=== PATIENT | male | born 1960 | race Caucasian/White ===

== ENCOUNTER 2018-01-31 15:13 | Emergency (ER) | payer BC ==
[2018-01-31] MEDS ORDERED: KETOROLAC 30 MG/ML 1 ML VIAL IVP STA (15:50)
[2018-01-31] MEDS ORDERED: MORPHINE SULFATE 4 MG/ML SYRINGE IVP ONE ×2 (15:50→18:44)
[2018-01-31] MEDS ORDERED: ONDANSETRON 4 MG/2 ML VIAL IVP STA ×2 (15:50→20:18)
[2018-01-31] MEDS ORDERED: DICYCLOMINE 10 MG/ML 2 ML AMP IM STA (15:53)
--- NOTE | 2018-01-31 15:59 | ED ---
Abdominal Pain HPI - General Chief Complaint: Abdominal Pain Stated Complaint: abdominal pain Time Seen by Provider: 01/31/18 15:31 Source: patient, family () Mode of arrival: ambulatory Limitations: no limitations - History of Present Illness Initial Comments: Patient presents with suprapubic abdominal pain for the past 4 hours. Patient states it feels like gas pains. States pain is intermittent. States pain radiates down his penis and to region between scrotum and rectum. Pain worse when laying flat when he "stretches out the area". Pain started after he went to the bathroom where he had a bowel movement and urinated. Patient states urination has been normal, denies blood or frequency. Patient denies penile discharge or testicular swelling or pain. States he had 2 bowel movements today , the first one was normal, second one was small amount of diarrhea. She denies blood in urine or stools. Patient denies history of abdominal surgeries or abdominal disease. Patient denies history of kidney stones, flank pain, rectal pain. Patient denies fevers, chills, nausea, vomiting. Patient states he had a similar episode of pain 3 weeks ago was less severe and resolved on its own. - Related Data Home Medications Medication Instructions Recorded Confirmed Benazepril/Hydrochlorothiazide 1 tab PO DAILY 03/16/15 01/31/18 [Lotensin Hct 20-12.5 mg Tablet] Fluticasone Nasal [place] [Flonase 1 spray EA NOSTRIL BID 01/31/18 01/31/18 Nasal [place]] Previous Rx's Medication Instructions Recorded Acetaminophen-Codeine 300-30mg 1 tab PO Q4H PRN 2 Days #12 tablet 01/31/18 [Tylenol #3] Amoxic-Pot Clav 875-125Mg 1 tab PO Q8HR 10 Days #30 tablet 01/31/18 [Augmentin 875-125] Ibuprofen [Motrin] 600 mg PO Q6HR PRN #20 tab 01/31/18 Allergies Allergy/AdvReac Type Severity Reaction Status Date / Time No Known Allergies Allergy Verified 01/31/18 16:02 Review of Systems ROS Statement: Those systems with pertinent positive or pertinent negative responses have been documented in the HPI. ROS Other: All systems not noted in ROS Statement are negative. Constitutional: Denies: fever, chills, weakness ENT: Denies: congestion Respiratory: Denies: dyspnea Cardiovascular: Denies: chest pain Endocrine: Denies: fatigue Gastrointestinal: Reports: abdominal pain, diarrhea. Denies: nausea, vomiting, constipation, hematemesis, melena, hematochezia Genitourinary: Reports: other (suprapubic pain radiating down penis). Denies: urgency, dysuria, frequency, hematuria, discharge, testicular pain, testicular mass Musculoskeletal: Denies: back pain Skin: Denies: rash, change in color Neurological: Denies: headache Past Medical History Past Medical History: Hypertension History of Any Multi-Drug Resistant Organisms: None Reported Past Surgical History: No Surgical Hx Reported Additional Past Surgical History / Comment(s): SINUS SURG Past Anesthesia/Blood Transfusion Reactions: Motion Sickness, Postoperative Nausea & Vomiting (PONV) Past Psychological History: No Psychological Hx Reported Smoking Status: Former smoker Past Alcohol Use History: Occasional Past Drug Use History: None Reported - Past Family History Mother Family Medical History: No Reported History General Exam - General Exam Comments Initial Comments: Sitting up in bed. No acute distress. Conversing normally. Calm, pleasant. Well appearing. Limitations: no limitations Head exam: Present: atraumatic, normocephalic Eye exam: Present: normal appearance, PERRL, EOMI ENT exam: Present: mucous membranes moist Neck exam: Present: normal inspection Respiratory exam: Present: normal lung sounds bilaterally. Absent: respiratory distress, wheezes, rales, rhonchi, stridor Cardiovascular Exam: Present: regular rate, normal rhythm GI/Abdominal exam: Present: soft, tenderness (mild suprapubic TTP). Absent: distended, guarding, hernia (No hernias appreciated) exam: Present: normal inspection, circumcision, other (Current testicular swelling or masses appreciated. Normal testicular lie. No hernias appreciated. Penis and scrotum appear normal. No rashes or lesions noted. No abnormalities of the perineum appreciated on visual inspection.). Absent: testicular tenderness, urethral discharge, scrotal swelling Extremities exam: Present: other (No gross deformities) Back exam: Present: normal inspection Neurological exam: Present: alert, oriented X3 Psychiatric exam: Present: normal affect, normal mood Skin exam: Present: warm, dry, intact, normal color. Absent: rash, cyanosis, diaphoretic, erythema Course Vital Signs 01/31/18 01/31/18 15:25 20:20 Temperature 97.0 F L 97.9 F Pulse Rate 73 63 Respiratory 20 17 Rate Blood Pressure 144/97 110/56 O2 Sat by Pulse 99 100 Oximetry Medical Decision Making - Medical Decision Making Toradol, morphine, Bentyl ordered. US scrotum: Ultrasound shows increased vascular flow to right testicle and epididymis suggestive mild right epididymoorchitis. Small hydroceles are also incidentally noted, right greater than left Mild elevation of WBC, UA negative, will get CT for possible intraabd infection. Pt with continued pain, 2nd dose morphine given. US abd: CT shows acute uncomplicated sigmoid diverticulitis, mild. Also shows suspicious solid right inferior pole renal mass Pt and family updated with all results. Symptoms likely secondary to diverticulitis. At this time UA negative, do not feel patient has orchitis. Normal genital physical exam. Diverticulitis. Mild unconjugated, patient agrees with child outpatient treatment with antibiotics and Tylenol 3. Patient also to take Motrin as needed. Discussed return to ED if new or worsening symptoms including increased pain, fevers, at which time patient would need admitted for IV treatment. Patient's family informed of right renal mass and need for follow with primary care physician for further management. All questions answered. Patient discharged home. Patient feeling nauseated prior to discharge, request dose of antiemetics, Zofran given. Nausea likely secondary to morphine. - Lab Data Result diagrams: 01/31/18 16:02 01/31/18 16:02 Lab Results 01/31/18 01/31/18 01/31/18 Range/Units 16:02 16:02 16:02 WBC 11.4 H (3.8-10.6) k/uL RBC 5.23 (4.30-5.90) m/uL Hgb 15.8 (13.0-17.5) gm/dL Hct 46.0 (39.0-53.0) % MCV 87.8 (80.0-100.0) fL MCH 30.2 (25.0-35.0) pg MCHC 34.4 (31.0-37.0) g/dL RDW 12.5 (11.5-15.5) % Plt Count 310 (150-450) k/uL Neutrophils % 69 % Lymphocytes % 21 % Monocytes % 6 % Eosinophils % 2 % Basophils % 1 % Neutrophils # 7.9 H (1.3-7.7) k/uL Lymphocytes # 2.4 (1.0-4.8) k/uL Monocytes # 0.7 (0-1.0) k/uL Eosinophils # 0.2 (0-0.7) k/uL Basophils # 0.1 (0-0.2) k/uL Sodium 138 (137-145) mmol/L Potassium 3.9 (3.5-5.1) mmol/L Chloride 104 (98-107) mmol/L Carbon Dioxide 19 L (22-30) mmol/L Anion Gap 15 mmol/L BUN 23 H (9-20) mg/dL Creatinine 0.85 (0.66-1.25) mg/dL Est GFR (CKD-EPI)AfAm >90 (>60 ml/min/1.73 sqM) Est GFR (CKD-EPI)NonAf >90 (>60 ml/min/1.73 sqM) Glucose 147 H (74-99) mg/dL Calcium 9.8 (8.4-10.2) mg/dL Urine Color Yellow Urine Appearance Clear (Clear) Urine pH 5.0 (5.0-8.0) Ur Specific [place] 1.017 (1.001-1.035) Urine Protein Negative (Negative) Urine Glucose (UA) Negative (Negative) Urine Ketones Negative (Negative) Urine Blood Trace H (Negative) Urine Nitrite Negative (Negative) Urine Bilirubin Negative (Negative) Urine Urobilinogen <2.0 (<2.0) mg/dL Ur Leukocyte Esterase Small H (Negative) Urine RBC 1 (0-5) /hpf Urine WBC 4 (0-5) /hpf Urine Mucus Rare H (None) /hpf Disposition Clinical Impression: Diverticulitis large intestine, Right kidney mass Disposition: HOME SELF-CARE Condition: Good Instructions: Diverticulitis (ED) Additional Instructions: Follow-up to her primary care physician for reevaluation and further workup of kidney mass. Return to ER for new or worsening symptoms including fevers, increased pain. Prescriptions: Acetaminophen-Codeine 300-30mg [Tylenol #3] 1 tab PO Q4H PRN 2 Days #12 tablet PRN Reason: Severe Pain Amoxic-Pot Clav 875-125Mg [Augmentin 875-125] 1 tab PO Q8HR 10 Days #30 tablet Ibuprofen [Motrin] 600 mg PO Q6HR PRN #20 tab PRN Reason: Mild Pain Referrals: Aleksandar Leal MD [Primary Care Provider] - 1-2 days
[2018-01-31 16:21] LABS: Basophils # (A) 0.1 k/uL (0-0.2); Basophils % (A) 1 %; Eosinophils # (A) 0.2 k/uL (0-0.7); Eosinophils % (A) 2 %; HGB 15.8 gm/dL (13.0-17.5); Lymphocytes # (A) 2.4 k/uL (1.0-4.8); Lymphocytes % (A) 21 %; MCH 30.2 pg (25.0-35.0); MCHC 34.4 g/dL (31.0-37.0); MCV 87.8 fL (80.0-100.0); Mean Platelet Volume 7.5; Monocytes # (A) 0.7 k/uL (0-1.0); Monocytes % (A) 6 %; Neutrophils # (A) 7.9 k/uL (1.3-7.7); Neutrophils % (A) 69 %; Platelet Count 310 k/uL (150-450); RBC 5.23 m/uL (4.30-5.90); RDW 12.5 % (11.5-15.5); WBC 11.4 k/uL (3.8-10.6)
[2018-01-31 16:25] LABS: Appearance,Urine Clear (Clear); Bilirubin,Urine Negative (Negative); Blood,Urine Trace (Negative); Color,Urine Yellow; Glucose,Urine (UA) Negative (Negative); Ketones,Urine Negative (Negative); Leukocyte Esterase,Urine Small (Negative); Mucus,Urine Rare /hpf; Nitrite,Urine Negative (Negative); Protein,Urine Negative (Negative); RBC,Urine 1 /hpf (0-5); Specific Gravity,Urine 1.017 (1.001-1.035); Urobilinogen,Urine <2.0 mg/dL (<2.0); WBC,Urine 4 /hpf (0-5)
[2018-01-31 16:33] LABS: Anion Gap 15 mmol/L; Blood Urea Nitrogen 23 mg/dL (9-20); Calcium 9.8 mg/dL (8.4-10.2); Carbon Dioxide 19 mmol/L (22-30); Chloride 104 mmol/L (98-107); Glucose 147 mg/dL (74-99); Potassium 3.9 mmol/L (3.5-5.1); Sodium 138 mmol/L (137-145)
--- NOTE | 2018-01-31 18:26 | US ---
EXAMINATION TYPE: US kidneys/renal and bladder DATE OF EXAM: 01/31/2018 COMPARISON: NONE CLINICAL HISTORY: Pain. Pain radiating to scrotum. No hx of renal stones. EXAM MEASUREMENTS: Right Kidney: 9.8 x 5.3 x 5.4 cm Left Kidney: 10.1 x 5.4 x 5.6 cm Right Kidney: wnl Left Kidney: Lateral subcentimeter appearing lesion = 0.6 x 0.7 x 0.6 cm. Although this is too small to characterize and slightly hypoechoic. Prominent column of guillermo Bladder: distended, wnl Bilateral Jets seen There is no evidence for hydronephrosis at this point in time. No nephrolithiasis is seen. The ur inary bladder is anechoic. Bilateral ureteral jets are seen. IMPRESSION: 1. No evidence of hydronephrosis or nephrolithiasis. 2. Subcentimeter left renal lesion that is too small to characterize.
--- NOTE | 2018-01-31 18:31 | US ---
EXAMINATION TYPE: US scrotum with doppler. Grayscale and color Doppler Duplex imaging performed of t twila scrotum. DATE OF EXAM: 01/31/2018 COMPARISON: NONE CLINICAL HISTORY: Pain. Generalized pain, no swelling, EXAM MEASUREMENTS: TESTICLES: Right Testicle: 4.2 x 3.2 x 2.5 cm Left Testicle: 3.7 x 3.1 x 2.4 cm EPIDIDYMIS HEAD: Right Epididymis: 1.1 x 1.4 x 0.9 cm Left Epididymis: 0.9 x 1.2 x 0.7 cm Doppler performed to assess for testicular vascularity; good bilateral color flow and waveforms are s een with bright blood flow slightly greater than left. There is no evidence of testicular torsion. Presence of hydroceles: Bilateral, right > left Right epididymis appears echogenic and heterogenous. No prominent testicular lesions or masses. IMPRESSION: Increased vascular flow to the right testicle and epididymis heterogeneity suggests mild right epididymoorchitis. Small hydroceles are also incidentally noted, right greater than left.
[2018-01-31] MEDS ORDERED: RX INFO: IV CONTRAST WAS GIVEN 1 EACH MISC MISCELLANE PRN (18:47)
--- NOTE | 2018-01-31 19:40 | CT ---
EXAMINATION TYPE: CT abdomen pelvis w con DATE OF EXAM: 01/31/2018 COMPARISON: NONE HISTORY: Patient complains of subumbilical pain that extends to the scrotum. CT DLP: 887.9 mGycm Automated exposure control for dose reduction was used. TECHNIQUE: Helical acquisition of images was performed from the lung bases through the pelvis. CONTRAST: Performed without Oral Contrast and with IV Contrast, patient injected with 100 mL of Omnipaque 300. FINDINGS: LUNG BASES: There is a small hiatal hernia and scattered areas of subsegmental atelectasis. LIVER/GB: No significant abnormality is appreciated. No cholelithiasis. PANCREAS: No significant abnormality is seen. No ductal dilatation. SPLEEN: No significant abnormality is seen. No splenomegaly. ADRENALS: No significant abnormality is seen. KIDNEYS: There is a suspicious solid mass of the inferior pole the right kidney emanating posteriorly measuring 2.5 x 3.0 x 3.2 cm and anterior posterior by transverse by craniocaudal dimension on serie s 3 image 33 and series 8 image 72. Other scattered bilateral hypoattenuated renal lesions that are s ubcentimeter are too small to accurately characterize. Right upper pole nearly fluid attenuated 1.3 c m lesion representing probable renal cyst with pseudoenhancement. Renal ultrasound could be performed for confirmation. No gross evidence of renal vein thrombosis. The primary mass of the right lower po le does abut and inferior minor and major calyx. FREE AIR: No free air is visualized. REPRODUCTIVE ORGANS: No significant abnormality is seen URINARY BLADDER: No significant abnormality is seen. ADENOPATHY: No greater than 1 cm short axis lymph nodes are seen within the abdomen or pelvis. Just inferior to the portacaval region anterior to the inferior vena cava on series 3 image 24 there is a prominent 8 mm short axis lymph node. OSSEOUS STRUCTURES: Osseous structures are intact. BOWEL: Mild pericolonic fat stranding is seen of the sigmoid colon surrounding multiple diverticula with fascial thickening. No pericolonic fluid collection or foci of free air. No ascites. There is lo ng segment bowel wall thickening of the sigmoid colon. Findings are limited to the sigmoid colon with no proximal obstruction or dilation. Appendix is air-filled and within normal limits. IMPRESSION: 1. ACUTE UNCOMPLICATED SIGMOID DIVERTICULITIS, OVERALL MILD IN DEGREE. 2. SUSPICIOUS SOLID RIGHT INFERIOR POLE RENAL MASS. THIS SHOULD BE CONSIDERED RENAL CELL CARCINOMA UN TIL PROVEN OTHERWISE ALTHOUGH ONCOCYTOMA IS ALSO IN THE DIFFERENTIAL. ADDITIONAL BILATERAL HYPOATTENU ATED RENAL LESIONS ARE TOO SMALL TO ACCURATELY CHARACTERIZE BUT LIKELY REPRESENT CYSTS. UPPER POLE RI GHT RENAL LESION LIKELY REPRESENTS A CYST WITH SIGNAL ENHANCEMENT AND COULD BE CONFIRMED WITH ULTRASO UND. 3.
[2018-01-31] MEDS ORDERED: Acetaminophen-Codeine 300-30mg TAB PO STA (20:04)
[2018-01-31 20:21] VITALS: BP 110/56; PULSE 63; RESP 17; TEMP 97.9
== END 2018-01-31 20:36 | disposition home or self-care (01) ==
LOC: EC 15:13
DX: K57.32 Diverticulitis of large intestine without perforation or abscess without bleeding (principal); N28.89 Other specified disorders of kidney and ureter; N43.3 Hydrocele, unspecified; D72.829 Elevated white blood cell count, unspecified; I10 Essential (primary) hypertension; Z87.891 Personal history of nicotine dependence; Z79.51 Long term (current) use of inhaled steroids; Z79.899 Other long term (current) drug therapy; Z53.8 Procedure and treatment not carried out for other reasons
CPT/HCPCS: 36415; 80048; 85025; 81001; 87086; 93975; 76870; 76770; 74177; 99284; 96374; 96375 ×2; 96376 ×2; 96372; J2270; J0500; J2405; J1885; Q9967

== ENCOUNTER → 2018-02-08 | Outpatient (CLI) | payer BC ==
[2018-02-08 15:26] LABS: Albumin 4.4 g/dL (3.5-5.0); Bilirubin, Delta 0.3 mg/dL (0.0-0.2); Total Bilirubin 0.3 mg/dL (0.2-1.3); Total Protein 7.5 g/dL (6.3-8.2)
--- NOTE | 2018-02-08 15:51 | XR ---
EXAMINATION TYPE: XR chest 2V DATE OF EXAM: 02/08/2018 COMPARISON: NONE TECHNIQUE: PA and lateral views submitted. HISTORY: Renal mass FINDINGS: The lungs are clear and there is no pneumothorax, pleural effusion, or focal pneumonia. No overt fa ilure. Chronic left clavicular deformity. IMPRESSION: 1. No acute process.
== END | disposition home or self-care (01) ==
LOC: LABWHC1 14:54
PROVIDERS: ATTEND Urology
DX: D41.01 Neoplasm of uncertain behavior of right kidney (principal)
CPT/HCPCS: 36415; 71046; 80076

== ENCOUNTER → 2019-09-01 | Outpatient (CLI) | payer BC ==
[2019-09-01 13:14] LABS: African American GFR (CKD) >90 (>60 ml/min/1.73 sqM); Blood Urea Nitrogen 18 mg/dL (9-20)
--- NOTE | 2019-09-01 15:39 | CT ---
EXAMINATION TYPE: CT abdomen pelvis w con DATE OF EXAM: 09/01/2019 COMPARISON: 01/31/2018 HISTORY: 59-year-old male generalized pain TECHNIQUE: Contiguous axial scanning of the abdomen and pelvis following administration of 100 ml Iso suki 300 IV contrast. Delayed images through the kidneys and coronal/sagittal reconstructions perform ed. CT DLP: 1153 mGycm Automated exposure control for dose reduction was used. FINDINGS: Heart normal size without pericardial effusion. Lung bases clear without pleural effusion. Tiny hiatal hernia. Liver normal size with decreased attenuation suggesting underlying fatty infiltration. No biliary kera juan manuel dilatation. Portal venous system is patent. Gallbladder, adrenal glands, spleen, and pancreas appear within normal limits. 1.1 cm cortical hypodensity posterior left kidney is unchanged suggestive of a small cortical cyst. The previous posterior right renal mass has been excised in the interval. There is cortical defect an d some heterogeneous density in this region suggesting postsurgical change. No suspicious nodularity is identified. Mild nodular thickening of the left adrenal gland up to 1 cm thick is new from 01/31/2018. Follow-up i s recommended. Scattered nonenlarged mesenteric lymph nodes. No dilated small bowel, free fluid, or free air. Normal appendix. Moderate stool burden. Oral contrast progressed to the hepatic flexure. Extensive sigmoid diverticulosis. Minimal fat stranding adjacent to the mid sigmoid colon, axial imag e 65 probably represents prominent pericolonic vessels. Bladder urine distended. Prostate gland measures 4.7 cm wide. No abnormal fluid collection in the pel vis or pelvic lymphadenopathy. Bones: Facet arthropathy lower lumbar spine. No osseous destructive process. IMPRESSION: 1. EXTENSIVE SIGMOID DIVERTICULOSIS. MILD FAT STRANDING ALONG THE MID SIGMOID COLON PROBABLY REPRESEN TS PROMINENT PERICOLONIC VESSELS OR SCARRING FROM PRIOR EPISODES OF DIVERTICULITIS. MINIMAL INFLAMMAT ION RELATING TO MILD ACUTE DIVERTICULITIS DIFFICULT TO ENTIRELY EXCLUDE. 2. INTERVAL RESECTION OF THE PATIENT'S PREVIOUS RIGHT RENAL MASS. THERE IS CORTICAL DEFECT. SOME HETE ROGENEOUS DENSITY, LIKELY POSTSURGICAL CHANGE. APPROPRIATE UROLOGIC FOLLOW-UP RECOMMENDED. 3. NEW NODULAR THICKENING OF THE LEFT ADRENAL GLAND MEASURING UP TO 1 CM. [address] MONTH FOLLOW-UP CT RECOMM ENDED TO REASSESS. 4. TINY HIATAL HERNIA.
== END | disposition home or self-care (01) ==
LOC: RADCTMAIN 12:23
PROVIDERS: ATTEND Internal Medicine
DX: K57.30 Diverticulosis of large intestine without perforation or abscess without bleeding (principal); N28.89 Other specified disorders of kidney and ureter; K44.9 Diaphragmatic hernia without obstruction or gangrene
CPT/HCPCS: 82565; 84520; 74177; 36415; Q9967

== ENCOUNTER → 2020-05-11 | Outpatient (CLI) | payer BC ==
--- NOTE | 2020-05-13 20:08 | CT ---
EXAMINATION TYPE: CT adrenal glands wo/w con DATE OF EXAM: 05/11/2020 COMPARISON: 09/01/2019 and 01/31/2018 HISTORY: 60-year-old male adrenal mass, history of renal cell carcinoma TECHNIQUE: Contiguous axial scanning of the abdomen performed without and with IV Contrast, patient i njected with 100 mL of Isovue 300. Delayed images were also obtained per adrenal mass protocol. Coron al/sagittal reconstructions performed. CT DLP: 2187 mGycm Automated exposure control for dose reduction was used. FINDINGS: The heart is normal size without pericardial effusion. Lung bases clear without pleural effusion. Small hiatal hernia. Diffuse low-density of the liver compatible with fatty infiltration. Portal venous system is patent. No biliary ductal dilatation. Gallbladder, spleen, pancreas appear within normal limits. Very subtle new 8 mm nodularity right adrenal gland difficult to exclude at this time. Stable postsurgical changes of partial nephrectomy along the posterior lower pole of the right kidney . Stable 9 mm centrally located hypodensity in the midpole the right kidney suggestive of a cyst. Stable 1.5 cm cortical cyst posterior midpole left kidney. Continued nodular enlargement of the left adrenal gland measuring 3.4 cm versus 2.7 cm, previously. T hickening medially measures up to 1.8 cm and laterally at 1.4 cm (versus 1.1 and 0.9 cm, previously). Noncontrast attenuation is 38 Hounsfield units. Postcontrast enhancement is 84 Hounsfield units. Delayed enhancement is 51 Hounsfield units. No mesenteric or retroperitoneal lymphadenopathy. No dilated small bowel, free fluid, or free air. Normal appendix. Oral contrast progressed to the hepatic flexure. [id number] stool. Extensive s igmoid diverticulosis. No pericolonic inflammatory change. Mild circumferential bladder wall thickening. Prostate gland again noted to be enlarged measuring 5.0 cm wide. No abnormal fluid collection the pelvis or pelvic lymphadenopathy. Bones: No osseous destructive process. IMPRESSION: 1. CONTINUED NODULAR ENLARGEMENT OF THE LEFT ADRENAL GLAND CURRENTLY MEASURING UP TO 3.4 CM VERSUS 2. 7 CM ON 09/01/2019 AND NEW COMPARED TO 01/31/2018. NOTE THAT WASHOUT MEASUREMENTS MAY HAVE SIGNIFIC ANTLY REDUCED SPECIFICITY IN PATIENTS WITH RENAL CELL CARCINOMA. SO, ADRENAL METASTASES CANNOT BE EXC LUDED DESPITE THE ABSOLUTE WASHOUT OF GREATER THAN 60%. 2. DEVELOPMENT OF SUBTLE NEW 8 MM NODULARITY OF THE RIGHT ADRENAL GLAND. 3. STABLE POSTRESECTION CHANGES ALONG THE LOWER POLE RIGHT KIDNEY. NO LOCAL RECURRENCE IDENTIFIED. 4. SMALL HIATAL HERNIA AND SIGMOID DIVERTICULOSIS. PROSTATOMEGALY AT 5.0 CM WIDE.
== END | disposition home or self-care (01) ==
LOC: RADCTMAIN 18:06
PROVIDERS: ATTEND Family Medicine
DX: E27.8 Other specified disorders of adrenal gland (principal); Z98.890 Other specified postprocedural states
CPT/HCPCS: 74170; Q9967

== ENCOUNTER → 2020-06-12 | Outpatient (CLI) | payer BC ==
[2020-06-12 08:06] LABS: Basophils # (A) 0.1 k/uL (0-0.2); Basophils % (A) 1 %; Eosinophils # (A) 0.2 k/uL (0-0.7); Eosinophils % (A) 2 %; HCT 44.9 % (39.0-53.0); HGB 15.2 gm/dL (13.0-17.5); Lymphocytes # (A) 2.9 k/uL (1.0-4.8); Lymphocytes % (A) 34 %; MCH 31.4 pg (25.0-35.0); MCHC 33.9 g/dL (31.0-37.0); MCV 92.6 fL (80.0-100.0); Monocytes # (A) 0.7 k/uL (0-1.0); Monocytes % (A) 8 %; Neutrophils # (A) 4.5 k/uL (1.3-7.7); Neutrophils % (A) 53 %; Platelet Count 256 k/uL (150-450); RBC 4.85 m/uL (4.30-5.90); RDW 12.7 % (11.5-15.5); WBC 8.5 k/uL (3.8-10.6)
[2020-06-12 08:20] LABS: ALT 49 U/L (4-49); AST 36 U/L (17-59); African American GFR (CKD) >90 (>60 ml/min/1.73 sqM); Albumin 4.5 g/dL (3.5-5.0); Alkaline Phosphatase 49 U/L (38-126); Anion Gap 8 mmol/L; Blood Urea Nitrogen 19 mg/dL (9-20); Calcium 9.5 mg/dL (8.4-10.2); Carbon Dioxide 28 mmol/L (22-30); Chloride 102 mmol/L (98-107); Glucose 138 mg/dL (74-99); Non-African American GFR(CKD) 87 (>60 ml/min/1.73 sqM); Potassium 4.5 mmol/L (3.5-5.1); Sodium 138 mmol/L (137-145); Total Bilirubin 0.6 mg/dL (0.2-1.3); Total Protein 7.4 g/dL (6.3-8.2)
== END | disposition home or self-care (01) ==
LOC: LABPAT 07:36
PROVIDERS: ATTEND Urology
DX: Z01.818 Encounter for other preprocedural examination (principal); E27.9 Disorder of adrenal gland, unspecified
CPT/HCPCS: 36415; 80053; 85025

== ENCOUNTER 2020-07-05 10:33 | Observation (INO) | payer BC ==
[2020-06-29 09:13] VITALS: BMI 32.5
[~2020-07-05 10:33] MED LIST: DEXAMETHASONE SOD PHOSPHATE 10 MG/ML 1 ML VIAL IV ONE; HYDROmorphone 0.5 MG/0.5 ML SYRINGE IVP PRN; LIDOCAINE 1% (10MG/ML) FOR IV START INTRADERMA PRN; MIDAZOLAM 2 MG/2 ML VIAL IV PRN; ONDANSETRON 4 MG/2 ML VIAL IVP ONE; ONDANSETRON 4 MG/2 ML VIAL IVP PRN
[2020-07-05] MEDS: LACTATED RINGERS 1,000 ML IV SCH ×3 (11:15→20:36)
[2020-07-05] MEDS ORDERED: ONDANSETRON 4 MG/2 ML VIAL ONE (11:24)
[2020-07-05] MEDS ORDERED: SCOPOLAMINE 1.5MG/72HR PATCH TRANSDERM ONE (11:30)
[2020-07-05] MEDS ORDERED: HYDROmorphone (PF) 1 MG/ML ONE (12:05)
[2020-07-05] MEDS ORDERED: MIDAZOLAM 2 MG/2 ML VIAL ONE (12:05)
[2020-07-05] MEDS ORDERED: fentaNYL (PF) 50 MCG/ML 2 ML AMP ONE (12:05)
[2020-07-05] MEDS ORDERED: LIDOCAINE 1% INJ 10MG/ML (20 ML MDV) ONE (12:05)
[2020-07-05] MEDS ORDERED: PROPOFOL 10 MG/ML 20 ML VIAL IV ONE (12:05)
[2020-07-05] MEDS ORDERED: ROCURONIUM 10 MG/ML (5 ML VIAL) IV ONE (12:05)
[2020-07-05] MEDS ORDERED: GLYCOPYRROLATE 0.2 MG/ML 2 ML VIAL ONE (12:05)
[2020-07-05] MEDS ORDERED: SUCCINYLCHOLINE CHLORIDE 100 MG/5 ML SYR IV ONE (12:05)
[2020-07-05] MEDS ORDERED: LABETALOL 5 MG/ML VIAL MDV ONE (12:05)
[2020-07-05] MEDS ORDERED: NEOSTIGMINE 1 MG/ML 10 ML VIAL ONE (12:05)
[2020-07-05] MEDS ORDERED: KETOROLAC 30 MG/ML 1 ML VIAL ONE (12:05)
[2020-07-05] MEDS ORDERED: BUPIVACAINE (PF) 0.5% 30 ML VIAL SQ ONE ×2 (12:47→13:39)
[2020-07-05] MEDS: LACTATED RINGERS 1,000 ML IV ONE ×2 (13:46→16:10)
[2020-07-05] MEDS ORDERED: LACTATED RINGERS 1,000 ML IV ONE (13:49)
--- NOTE | 2020-07-05 14:00 | P.OP ---
Date of Procedure: 07/05/20 Preoperative Diagnosis: Left adrenal mass Postoperative Diagnosis: Extensive adhesions of omentum and large bowel Left adrenal mass Procedure(s) Performed: #1 robotic left partial adrenalectomy #2 extensive lysis of adhesions Implants: None Anesthesia: JEANAA Surgeon: Max Conner Estimated Blood Loss (ml): 20 IV fluids (ml): 400 Urine output (ml): 100 Pathology: other (Left adrenal tumor) Condition: stable Disposition: PACU Indications for Procedure: Enlarging left adrenal mass that increased from 2.64-3.7 cm. Given the past history off kidney cancer, there was a suspicion that the adrenal tumor was a metastasis Operative Findings: #1 there were extensive adhesions between the omentum and large bowel in the left upper quadrant. These required an extensive lysis of adhesions with laparoscopy. The adrenal tumor was seen in the suprarenal location. Large pancreas Description of Procedure: jose angel was evaluated in the office for an enlarging left adrenal mass. With the suspicion of RCC metastasis elected to undergo a left partial adrenalectomy. All risks and complications were explained to him including bleeding, spleen pancreas injury, need for nephrectomy, etc He was taken to the OR and administered general anesthesia and placed in the left lateral position. All parts were padded. He was prepped and draped. Using a Veress needle pneumoperitoneum was established to 20 mmHg. A 8 mm robotic port was placed in the midclavicular line. The 0 lens was introduced into the belly. Inspection of the peritoneum revealed extensive omental and large bowel adhesions in the upper left quadrant of the abdomen. 2 additional 8 mm ports were placed in the midclavicular line below the camera port. Using laparoscopic scissors the omental and large bowel adhesions were lysed. The spleen was also stuck to the left lateral wall. Once the adhesions were lysed. A fourth port was placed in the midclavicular line above the camera port. The robot was docked and a monopolar scissor, fenestrated bipolar and Prograf 6 forceps were used for the procedure. The procedure was started by incising along the line of Toldt and the descending colon and sigmoid colon were reflected medially. The procedure was directed superiorly towards the splenic flexure. The spleen was then identified and the lienorenal ligament was divided. The entire large bowel was reflected medially to the level of the aorta. Superiorly the spleen and the pancreas was completely reflected medially until the splenic vein and splenic artery was identified. At this point the adrenal tumor could be seen and outlined. The fourth arm was used to reflect the spleen and pancreas medially and the monopolar scissors and fenestrated bipolar was used to define a plane between the adrenal tumor and the renal hilum. The splenic vein was identified and clipped on the body side and coagulated with the vessel sealer and divided. A plane was then developed between the lower border of the adrenal mass and the kidney and renal hilum. This plane was deepened down to the psoas muscle. Attention was then directed to the medial aspect of the adrenal mass and using vessel sealer was all the small bowel vessels entering the adrenal tumor were divided and coagulated. The bipolar was used to conform hemostasis. Once the inferior and medial margins of the adrenal tumor were freed attention was then directed to the superior margin between the normal adrenal gland and the adrenal tumor. Using the vessel sealer the tumor was from the normal adrenal gland and hemostasis was confirmed. Care was taken to keep an adequate margin around the adrenal tumor. Finally the lateral aspect of the adrenal tumor was divided with the vessel sealer. Once the entire adrenal was freed it was placed in an Endo Catch bag and attention was then directed to the foci to conform hemostasis with the bipolar forceps. 10 mL of Tisseel were then placed in the adrenal fossa as an adjunct for hemostasis. A Surgicel piece was also placed in that fossa. The specimen was then delivered by enlarging the 12 mm geriatric nurse assistant port. The 12 mm incision was then closed with figure of 8 of 0 Vicryl on a CT1 needle. The subcu and skin were closed with 4-0 Monocryl. And skin glue was applied. The patient tolerated the procedure well and he was taken to recovery in stable condition
[2020-07-05] MEDS: HYDROmorphone 0.5 MG/0.5 ML SYRINGE IVP PRN ×2 (14:15→14:24)
[2020-07-05] MEDS ORDERED: ZOLPIDEM 5 MG TAB PO PRN (14:40)
[2020-07-05] MEDS ORDERED: MAG HYDROX/AL HYDROX/SIMETH 30 ML CUP PO PRN (14:40)
[2020-07-05] MEDS ORDERED: ONDANSETRON 4 MG/2 ML VIAL IVP PRN (14:40)
[2020-07-05] MEDS: DEXTROSE 5%-0.45% NACL 1,000 ML IV SCH ×2 (16:19→23:48)
[2020-07-05] MEDS: HEPARIN SODIUM,PORCINE 5,000 UNIT/ML 1 ML VIAL SQ SCH ×2 (17:10→23:47)
[2020-07-05] MEDS: KETOROLAC 15 MG/ML 1 ML VIAL IVP SCH ×2 (17:10→23:51)
[2020-07-05] MEDS: HYDROmorphone 1 MG/ML 1 ML SYRINGE IVP PRN (20:38)
[2020-07-05] MEDS ORDERED: ZINC SULFATE 220 MG CAP PO SCH (21:00)
[2020-07-06] MEDS: HYDROmorphone 1 MG/ML 1 ML SYRINGE IVP PRN ×3 (02:29→14:53)
[2020-07-06] MEDS: LACTATED RINGERS 1,000 ML IV SCH (04:27)
[2020-07-06] MEDS: KETOROLAC 15 MG/ML 1 ML VIAL IVP SCH ×2 (06:08→11:09)
[2020-07-06] MEDS: DEXTROSE 5%-0.45% NACL 1,000 ML IV SCH ×2 (06:09→11:10)
[2020-07-06] MEDS: HEPARIN SODIUM,PORCINE 5,000 UNIT/ML 1 ML VIAL SQ SCH (07:48)
[2020-07-06] MEDS ORDERED: LORATADINE 10 MG TAB PO SCH (09:00)
[2020-07-06] MEDS ORDERED: INULIN PO SCH (09:00)
[2020-07-06] MEDS ORDERED: CHOLECALCIFEROL 1,000 UNIT TAB PO SCH (09:00)
[2020-07-06] MEDS ORDERED: LISINOPRIL-HCTZ 20-12.5 MG 1 EACH TAB PO SCH (09:00)
[2020-07-06] MEDS ORDERED: CHROMIUM PICOLINATE PO SCH (09:00)
[2020-07-06 12:34] VITALS: BP 147/85; PULSE 77; RESP 20; TEMP 97.7
== END 2020-07-06 16:21 | disposition home or self-care (01) ==
LOC: OR 10:33 → 5NMEDONC 14:22 → OR 20:38 → 5NMEDONC 23:38
PROVIDERS: ADMIT Urology; ATTEND Urology
DX: C79.72 Secondary malignant neoplasm of left adrenal gland (principal); C64.1 Malignant neoplasm of right kidney, except renal pelvis; K66.0 Peritoneal adhesions (postprocedural) (postinfection); N40.1 Benign prostatic hyperplasia with lower urinary tract symptoms; I10 Essential (primary) hypertension; Z90.5 Acquired absence of kidney; Z79.899 Other long term (current) drug therapy; Z87.891 Personal history of nicotine dependence; Z82.61 Family history of arthritis
CPT/HCPCS: 49329; 60650; S2900; 86850; 86900; 86901; 88307; 88313; 88341; 88342

== ENCOUNTER → 2020-10-23 | Outpatient (CLI) | payer BC ==
--- NOTE | 2020-10-24 04:57 | CT ---
EXAMINATION TYPE: CT ChestAbdPelvis w con DATE OF EXAM: 10/23/2020 COMPARISON: 05/11/2020, 09/01/2019, 01/31/2018 HISTORY: 60-year-old male C64.1, follow-up Renal CA TECHNIQUE: Contiguous axial scanning of the chest, abdomen, and pelvis performed with IV Contrast, pa tient injected with 100 mL of Isovue 300. Delayed images through the kidneys were obtained. Coronal/s agittal reconstructions performed. CT DLP: 1539.6 mGycm Automated exposure control for dose reduction was used. FINDINGS: CHEST: Heart normal size without pericardial effusion. Ectatic ascending aorta 3.6 cm with bovine configuration to the aortic arch. Trace bilateral gynecomastia. No thoracic lymphadenopathy by CT size criteria. Some strandy atelectasis in the inferior lingula. No consolidation or pleural effusion. ABDOMEN: No focal liver lesion or biliary ductal dilatation. Portal venous system is patent. Gallbladder, spleen, and pancreas appear within normal limits. Stable 1.3 cm cortical cyst posterolateral left kidney. Stable small postsurgical defect posteromedial aspect of the lower pole right kidney corresponding to the site of previous tumor resection. No suspicious mass or new nodularity is identified in this reg ion. The previous left adrenal mass has decreased in size previously measuring 3.4 x 1.5 cm and now measur ing 2.0 x 1.1 cm and with lower density and less definition. Some surrounding strandy densities are p resent as well. Query any interval treatment or surgery. However, the right adrenal nodularity is stable to minimally more pronounced at 1.1 cm versus 8 mm, p reviously. Some scarring along the anterior abdominal wall related to prior laparoscopic portals. No dilated small bowel, free fluid, or free air. No mesenteric or retroperitoneal lymphadenopathy. Normal appendix. Oral contrast has progressed to the lower descending colon. Extensive sigmoid divert iculosis. There is some wall thickening along the midsigmoid and some pericolonic fat stranding, refe r to axial images 96 through 101. PELVIS: Bladder is urine distended. Prostate gland enlargement 5.2 cm wide. No abnormal fluid collection in t he pelvis or pelvic lymphadenopathy. BONES: Hypertrophic facet arthropathy lower lumbar spine. No osseous destructive process. IMPRESSION: 1. STABLE POST RESECTION CHANGES ALONG THE LOWER POLE OF THE RIGHT KIDNEY. NO EVIDENCE FOR LOCAL RECU RRENCE. 2. THE LEFT ADRENAL MASS HAS DECREASED IN SIZE MEASURING 2.0 X 1.1 CM (VERSUS 3.4 X 1.5 CM, PREVIOUSL Y) AND NOW SHOWS LOWER DENSITY AND ILL-DEFINITION. QUERY ANY INTERVAL TREATMENT OR SURGERY. CONTINUED FOLLOW-UP RECOMMENDED. 3. HOWEVER, THE RIGHT ADRENAL NODULE IS STABLE TO MINIMALLY MORE PRONOUNCED AT 1.1 CM VERSUS 8 MM, AR EVIOUSLY. AGAIN, CONTINUED FOLLOW-UP RECOMMENDED. 4. REDEMONSTRATED SIGMOID DIVERTICULOSIS. THERE IS MILD PERICOLONIC FAT STRANDING NOW ALONG THE MID S IGMOID WITH SOME WALL THICKENING. CORRELATE FOR MILD ACUTE DIVERTICULITIS. DIRECT VISUALIZATION WHEN PATIENT ABLE TO EXCLUDE UNDERLYING NEOPLASM. 5. PROSTATOMEGALY AT 5.2 CM WIDE.
== END | disposition home or self-care (01) ==
LOC: RADCTMAIN 14:58
PROVIDERS: ATTEND Internal Medicine Hematology & Oncology
DX: E27.8 Other specified disorders of adrenal gland (principal); K57.30 Diverticulosis of large intestine without perforation or abscess without bleeding; N40.0 Benign prostatic hyperplasia without lower urinary tract symptoms; K63.89 Other specified diseases of intestine; C64.1 Malignant neoplasm of right kidney, except renal pelvis; Z98.890 Other specified postprocedural states
CPT/HCPCS: 82565; 84520; 71260; 74177; 36415; Q9967

== ENCOUNTER → 2021-01-22 | Outpatient (CLI) | payer BC ==
[2021-01-22 09:40] LABS: African American GFR (CKD) >90 (>60 ml/min/1.73 sqM); Blood Urea Nitrogen 18 mg/dL (9-20); Non-African American GFR(CKD) 81 (>60 ml/min/1.73 sqM)
--- NOTE | 2021-01-22 12:40 | CT ---
EXAMINATION TYPE: CT ChestAbdPelvis w con DATE OF EXAM: 01/22/2021 COMPARISON: 10/23/2020, 05/11/2020, 09/14/2019 HISTORY: 60-year-old male C6 4.1, history of renal cancer. TECHNIQUE: Contiguous axial scanning of the chest, abdomen, and pelvis performed with IV Contrast, pa tient injected with 100 mL of Isovue 300. Delayed images through the kidneys were obtained. Coronal/s agittal reconstructions performed. CT DLP: 1763 mGycm Automated exposure control for dose reduction was used. FINDINGS: CHEST: Heart normal size without pericardial effusion. Aorta normal caliber with bovine configuration to the aortic arch. No thoracic lymphadenopathy by CT size criteria. Some stable strandy scarring or atelectasis at the inferior lingula. Tiny calcified granuloma within the lingula just above, axial image 34. No consolidation or pleural effusion. ABDOMEN: Tiny hiatal hernia. No focal liver lesion or biliary ductal dilatation. Portal venous system is patent. Gallbladder, spleen, and pancreas appear within normal limits. Postsurgical change posterior mid to lower pole right kidney is stable. 1.1 cm centrally located cyst within the mid right kidney unchanged from 05/11/2020. 1.4 cm cortical cyst lateral left kidney is unchanged. Unchanged low density soft tissue thickening of the left adrenal gland at 2.0 x 1.0 cm (versus 2.0 x 1.1 cm on 10/23/2020 and 3.4 x 1.5 cm on 05/11/2020). 1.1 cm right adrenal nodularity is unchanged from 10/23/2020. No dilated small bowel, free fluid, or free air. No mesenteric or retroperitoneal lymphadenopathy. Normal appendix. Oral contrast progressed to the rectum. There is sigmoid diverticulosis. No pericolo jeferson inflammatory change. Minimal stool burden. PELVIS: Bladder is urine distended. Prostate gland measures 5.0 cm wide. Tiny left-sided pelvic phlebolith. N o abnormal fluid collection of pelvis or pelvic lymphadenopathy. BONES: Mild degenerative change at the left hip. Facet arthropathy lower lumbar spine. No osseous destructiv e process. IMPRESSION: 1. STABLE POSTSURGICAL CHANGE ALONG THE MID TO LOWER POLE OF THE RIGHT KIDNEY. NO EVIDENCE FOR LOCAL RECURRENCE. 2. STABLE LOW DENSITY THICKENING OF THE LEFT ADRENAL GLAND AT 2.0 X 1.0 CM, LIKELY SITE OF TREATED DI SEASE. 3. 1.1 CM NODULARITY OF THE RIGHT ADRENAL GLAND STABLE FROM 10/23/2020. STABLE METASTASIS IS NOT EXCLU DED THIS MEASURED 8 MM ON 05/11/2020 AND IS NEW FROM 09/01/2019. NO EVIDENCE FOR DISEASE PROGRESSIO N. 4. TINY HIATAL HERNIA AND SIGMOID DIVERTICULOSIS.
== END | disposition home or self-care (01) ==
LOC: RADCTMAIN 09:01
PROVIDERS: ATTEND Internal Medicine Hematology & Oncology
DX: C79.70 Secondary malignant neoplasm of unspecified adrenal gland (principal); K57.30 Diverticulosis of large intestine without perforation or abscess without bleeding; K44.9 Diaphragmatic hernia without obstruction or gangrene; E27.8 Other specified disorders of adrenal gland; C64.1 Malignant neoplasm of right kidney, except renal pelvis; Z98.890 Other specified postprocedural states
CPT/HCPCS: 82565; 84520; 71260; 74177; 36415; Q9967

== ENCOUNTER 2021-02-03 19:53 | Observation (INO) | payer BC ==
[2021-02-03] MEDS ORDERED: MORPHINE SULFATE 4 MG/ML SYRINGE IV STA (20:11)
[2021-02-03] MEDS ORDERED: SODIUM CHLORIDE 0.9% 1,000 ML IV STA (20:11)
--- NOTE | 2021-02-03 20:32 | ED ---
Abdominal Pain HPI - General Chief Complaint: Abdominal Pain Stated Complaint: Abdominal Pain Time Seen by Provider: 02/03/21 20:03 Source: patient, RN notes reviewed Mode of arrival: ambulatory Limitations: no limitations - History of Present Illness Initial Comments: Patient is a 60-year-old male that presents emergency department complaining of lower abdominal pain. He does have a history of diverticulitis and this feels a flareup to him. At that he was eating dinner today and then immediately fell To the bathroom and was diarrhea. He noted there is no blood in his diarrhea. He noted the pain is about a 8-9 out of 10 with no relief from any pain medication at home. He denied any chest pain shortness of breath headache nausea vomiting obstipation fever fatigue chills. 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 - Related Data Home Medications Medication Instructions Recorded Confirmed Benazepril/Hydrochlorothiazide 1 tab PO DAILY 03/16/15 02/03/21 [Lotensin Hct 20-12.5 mg Tablet] amLODIPine [Norvasc] 5 mg PO DAILY 02/03/21 02/03/21 Allergies Allergy/AdvReac Type Severity Reaction Status Date / Time No Known Allergies Allergy Verified 02/03/21 21:47 Review of Systems ROS Statement: Those systems with pertinent positive or pertinent negative responses have been documented in the HPI. ROS Other: All systems not noted in ROS Statement are negative. Past Medical History Past Medical History: Hypertension Additional Past Medical History / Comment(s): Diverticulitis. renal cx. History of Any Multi-Drug Resistant Organisms: None Reported Past Surgical History: No Surgical Hx Reported Additional Past Surgical History / Comment(s): SINUS SURG, renal surgery Past Anesthesia/Blood Transfusion Reactions: Motion Sickness, Postoperative Nausea & Vomiting (PONV) Past Psychological History: No Psychological Hx Reported Smoking Status: Former smoker Past Alcohol Use History: Occasional Past Drug Use History: None Reported - Past Family History Mother Family Medical History: No Reported History General Exam Limitations: no limitations General appearance: alert, in no apparent distress Head exam: Present: atraumatic, normocephalic, normal inspection Eye exam: Present: normal appearance, PERRL, EOMI. Absent: scleral icterus, conjunctival injection, periorbital swelling ENT exam: Present: normal exam, mucous membranes moist Neck exam: Present: normal inspection. Absent: tenderness, meningismus, lymphadenopathy Respiratory exam: Present: normal lung sounds bilaterally. Absent: respiratory distress, wheezes, rales, rhonchi, stridor Cardiovascular Exam: Present: regular rate, normal rhythm, normal heart sounds. Absent: systolic murmur, diastolic murmur, rubs, gallop, clicks GI/Abdominal exam: Present: soft, tenderness (Generalized lower abdominal area), normal bowel sounds. Absent: distended, guarding, rebound, rigid Extremities exam: Present: normal inspection, full ROM, normal capillary refill. Absent: tenderness, pedal edema, joint swelling, calf tenderness Neurological exam: Present: alert, oriented X3, CN II-XII intact Psychiatric exam: Present: normal affect, normal mood Skin exam: Present: warm, dry, intact, normal color. Absent: rash Course Vital Signs 02/03/21 02/03/21 02/03/21 19:55 20:46 21:10 Temperature 98.6 F 98.7 F Pulse Rate 84 88 Respiratory 20 20 Rate Blood Pressure 161/89 150/80 O2 Sat by Pulse 96 98 Oximetry Medical Decision Making - Medical Decision Making 60-year-old male complaining of lower abdominal pain. Labs, CT of the abdomen and pelvis, 1 L normal saline, 4 mg of morphine ordered. CT of the head and pelvis showed acute diverticulitis. Elevated white count at 20.1. Case discussed with Dr. Moreau, patient will be admitted to inpatient at the hospital to Dr. Rowley - Lab Data Result diagrams: 02/03/21 20:12 02/03/21 20:12 Lab Results 02/03/21 02/03/21 02/03/21 Range/Units 20:12 20:12 20:12 WBC 20.1 H (3.8-10.6) k/uL RBC 5.37 (4.30-5.90) m/uL Hgb 16.2 (13.0-17.5) gm/dL Hct 48.4 (39.0-53.0) % MCV 90.3 (80.0-100.0) fL MCH 30.2 (25.0-35.0) pg MCHC 33.4 (31.0-37.0) g/dL RDW 13.1 (11.5-15.5) % Plt Count 299 (150-450) k/uL MPV 7.8 Neutrophils % 83 % Lymphocytes % 9 % Monocytes % 4 % Eosinophils % 3 % Basophils % 0 % Neutrophils # 16.8 H (1.3-7.7) k/uL Lymphocytes # 1.8 (1.0-4.8) k/uL Monocytes # 0.8 (0-1.0) k/uL Eosinophils # 0.6 (0-0.7) k/uL Basophils # 0.0 (0-0.2) k/uL Sodium 137 (137-145) mmol/L Potassium 4.1 (3.5-5.1) mmol/L Chloride 103 (98-107) mmol/L Carbon Dioxide 24 (22-30) mmol/L Anion Gap 10 mmol/L BUN 21 H (9-20) mg/dL Creatinine 1.15 (0.66-1.25) mg/dL Est GFR (CKD-EPI)AfAm 80 (>60 ml/min/1.73 sqM) Est GFR (CKD-EPI)NonAf 69 (>60 ml/min/1.73 sqM) Glucose 121 H (74-99) mg/dL Calcium 9.8 (8.4-10.2) mg/dL Total Bilirubin 0.6 (0.2-1.3) mg/dL AST 37 (17-59) U/L ALT 38 (4-49) U/L Alkaline Phosphatase 65 (38-126) U/L Total Protein 8.0 (6.3-8.2) g/dL Albumin 4.7 (3.5-5.0) g/dL Amylase 64 (30-110) U/L Lipase 224 (23-300) U/L Urine Color Yellow Urine Appearance Clear (Clear) Urine pH 5.5 (5.0-8.0) Ur Specific [place] 1.023 (1.001-1.035) Urine Protein Negative (Negative) Urine Glucose (UA) Negative (Negative) Urine Ketones Negative (Negative) Urine Blood Small H (Negative) Urine Nitrite Negative (Negative) Urine Bilirubin Negative (Negative) Urine Urobilinogen <2.0 (<2.0) mg/dL Ur Leukocyte Esterase Negative (Negative) Urine RBC 5 (0-5) /hpf Urine WBC 2 (0-5) /hpf Amorphous Sediment Rare H (None) /hpf Urine Mucus Rare H (None) /hpf - Radiology Data Radiology results: report reviewed, image reviewed CT of the abdomen and pelvis. There is some focal diverticulitis of the sigmoid colon which is new compared to recent exam. Disposition Clinical Impression: Acute diverticulitis, Abdominal pain, Diarrhea Disposition: ADMITTED IP TO THIS [facility] Condition: Stable Is patient prescribed a controlled substance at d/c from ED?: No Referrals: Dylan Martinez MD [Primary Care Provider] - 1-2 days Time of Disposition: 22:04
[2021-02-03 20:33] LABS: Basophils % (A) 0 %; Eosinophils # (A) 0.6 k/uL (0-0.7); Eosinophils % (A) 3 %; HCT 48.4 % (39.0-53.0); HGB 16.2 gm/dL (13.0-17.5); Lymphocytes # (A) 1.8 k/uL (1.0-4.8); Lymphocytes % (A) 9 %; MCH 30.2 pg (25.0-35.0); MCHC 33.4 g/dL (31.0-37.0); MCV 90.3 fL (80.0-100.0); Mean Platelet Volume 7.8; Monocytes # (A) 0.8 k/uL (0-1.0); Monocytes % (A) 4 %; Neutrophils # (A) 16.8 k/uL (1.3-7.7); Neutrophils % (A) 83 %; Platelet Count 299 k/uL (150-450); RBC 5.37 m/uL (4.30-5.90); RDW 13.1 % (11.5-15.5); WBC 20.1 k/uL (3.8-10.6)
[2021-02-03 20:38] LABS: Amorphous Sediment,Urine Rare /hpf; Appearance,Urine Clear (Clear); Bilirubin,Urine Negative (Negative); Blood,Urine Small (Negative); Color,Urine Yellow; Glucose,Urine (UA) Negative (Negative); Ketones,Urine Negative (Negative); Leukocyte Esterase,Urine Negative (Negative); Mucus,Urine Rare /hpf; Nitrite,Urine Negative (Negative); PH, Urine 5.5 (5.0-8.0); Protein,Urine Negative (Negative); RBC,Urine 5 /hpf (0-5); Specific Gravity,Urine 1.023 (1.001-1.035); Urobilinogen,Urine <2.0 mg/dL (<2.0); WBC,Urine 2 /hpf (0-5)
[2021-02-03 20:47] LABS: Albumin 4.7 g/dL (3.5-5.0); Calcium 9.8 mg/dL (8.4-10.2); Potassium 4.1 mmol/L (3.5-5.1); Total Bilirubin 0.6 mg/dL (0.2-1.3)
--- NOTE | 2021-02-03 21:17 | CT ---
EXAMINATION TYPE: CT abdomen pelvis w con DATE OF EXAM: 02/03/2021 COMPARISON: January 22, 2021 HISTORY: Pelvic pain, history of diverticulitis. CT DLP: 1441 mGycm Automated exposure control for dose reduction was used. CONTRAST: Performed with IV Contrast, patient injected with 100 mL of Isovue 300. Images obtained from the diaphragm to the floor the pelvis with IV contrast. The lung bases are clear. There is no pleural effusion. Heart size is normal. There is no pericardial effusion. Liver spleen stomach pancreas gallbladder appear normal. The bile ducts are not dilated. There is no adrenal mass. There are small bilateral renal cortical cysts that measure up to 1 cm. The re is no hydronephrosis. There is no evidence of a solid renal mass. Delayed images show normal renal excretion. There is calyceal diverticulum posterior right kidney. There is no retroperitoneal adenop athy. Appendix is normal in size. There is no sign of appendicitis. Bladder distends smoothly. Prosta te measures 5 cm. There is no inguinal hernia. There is mild fat stranding and wall thickening of the mid sigmoid colon. There are numerous divertic blanca. There are some small anterior extraluminal air bubbles. Lumbar vertebra have normal alignment. Disc spaces are fairly normal. There is no compression fractur e. The bony pelvis is intact. Hip joints are intact. IMPRESSION: There is some focal diverticulitis of the mid sigmoid colon which is new compared to recent exam.
[2021-02-03] MEDS ORDERED: PIPERACILLIN-TAZOBACTAM 3.375 GM in SODIUM CHLORIDE 0.9% 100 ML IVPB STA (21:35)
[2021-02-03] MEDS ORDERED: NALOXONE 0.4 MG/ML 1 ML VIAL IV PRN (22:01)
[2021-02-03] MEDS ORDERED: ONDANSETRON 4 MG/2 ML VIAL IVP PRN (22:01)
[2021-02-03] MEDS: HYDROmorphone 1 MG/ML 1 ML SYRINGE IVP PRN (22:36)
[2021-02-03] MEDS: ENOXAPARIN 40 MG/0.4 ML SYRINGE SQ SCH (23:03)
[2021-02-03] MEDS: SODIUM CHLORIDE 0.9% 1,000 ML IV SCH (23:03)
[2021-02-04] MEDS: HYDROmorphone 1 MG/ML 1 ML SYRINGE IVP PRN ×4 (02:01→12:53)
[2021-02-04] MEDS: PIPERACILLIN-TAZOBACTAM 3.375 GM in SODIUM CHLORIDE 0.9% 100 ML IVPB SCH ×3 (06:17→22:07)
[2021-02-04] MEDS: ENOXAPARIN 40 MG/0.4 ML SYRINGE SQ SCH (08:34)
[2021-02-04] MEDS: lisinopriL 20 MG TAB PO SCH (08:34)
[2021-02-04] MEDS ORDERED: hydroCHLOROthiazide 25 MG TAB PO SCH (09:00)
[2021-02-04] MEDS: amLODIPine 5 MG TAB PO SCH (09:02)
[2021-02-04] MEDS ORDERED: ACETAMINOPHEN TAB 500 MG TAB PO PRN (14:58)
[2021-02-04] MEDS: SODIUM CHLORIDE 0.9% 1,000 ML IV SCH (15:27)
[2021-02-04] MEDS ORDERED: CALCIUM CARBONATE 500 MG CHEWABLE PO PRN (19:56)
[2021-02-04] MEDS ORDERED: MAG HYDROX/AL HYDROX/SIMETH 30 ML CUP PO PRN (19:56)
[2021-02-04] MEDS ORDERED: ALPRAZolam 0.25 MG TAB PO PRN (19:56)
[2021-02-04] MEDS ORDERED: MELATONIN 3 MG TABLET PO PRN (19:56)
--- NOTE | 2021-02-04 19:56 | P.HPIM ---
History of Present Illness H&P Date: 02/04/21 Chief Complaint: Abdominal pain History of presenting complaint: This is a pleasant 60-year-old patient of Dr. Martinez. Chronic stable medical conditions include hypertension, patient had 1 prior episode of diverticulitis about 3 years ago. Patient started having left lower quadrant abdominal pain yesterday. Became worse. Had's couple of loose stools. No nausea vomiting or fevers no chills. Acid symptoms became more prominent decided to come to the ER. Computed tomography scan did confirm focal Dr. Ross. Was put on IV fluids IV antibiotics and admitted for the same. with some decrease of appetite since episode Review of systems: GEN.: Tired EYES: None HEENT: None NECK: None RESPIRATORY: None CARDIOVASCULAR: None GASTROINTESTINAL: As above GENITOURINARY: None MUSCULOSKELETAL: None LYMPHATICS: None HEMATOLOGICAL: None PSYCHIATRY: None NEUROLOGICAL: None Past medical history to include: Hypertension, diverticulitis Social history: . senior analyst programmer. Alcohol occasionally. Quit smoking 6 is ago. Family history: Reviewed, noncontributory to presentation Physical examination: VITAL SIGNS: 98.6, 84, 20, 161/89, 96% on room air GENERAL: BMI 32.5, reclining in bed, not in distress. EYES: Pupils equal. Conjunctiva normal. HEENT: External appearance of nose and ears normal, oral cavity grossly normal. NECK: JVD not raised; masses not palpable. HEART: First and second heart sounds are normal; no edema. LUNGS: Respiratory rate normal; clear to auscultation. ABDOMEN: Soft, left lower quadrant tenderness, no guarding rigidity, liver spleen not palpable, no masses palpable. PSYCH: Alert and oriented x3; mood and affect normal. NEUROLOGICAL: Cranial nerves grossly intact; no facial asymmetry, power and sensation grossly intact. LYMPHATICS: No lymph nodes palpable in the axilla and neck INVESTIGATIONS, reviewed in the clinical context: WBC 20.1 hemoglobin 16.2 platelets 299 potassium 4.1 creatinine 1.15 Colon minus [PCR]-not detected Computed tomography scan of the abdomen-small bilateral renal cortical cyst up to 1 cm. Mild fat stranding and wall thickening of the mid sigmoid colon. Numerous diverticula. There are some small anterior extraluminal air bubbles. Assessment and plan: -Acute mid sigmoid diverticulitis with what appears to be possible microperforation. Patient be started on IV Zosyn. IV fluids. Placed on clear liquid diet. -Essential hypertension. Antihypertensive from home were resumed. -Leukocytosis from diverticulitis -Colonic diverticulosis -Obesity BMI 32.5. Follow-up with PCP for weight loss measures. -DVT prophylaxis. Put patient on subcu Lovenox. Care was discussed with the patient. Questions were answered. GI will be consulted. Given the complexity and severity of patient's condition expect the patient to be in the hospital at least for 2 overnights Past Medical History Past Medical History: Hypertension Additional Past Medical History / Comment(s): Diverticulitis. renal cx. History of Any Multi-Drug Resistant Organisms: None Reported Past Surgical History: No Surgical Hx Reported Additional Past Surgical History / Comment(s): SINUS SURG, renal surgery Past Anesthesia/Blood Transfusion Reactions: Motion Sickness, Postoperative Nausea & Vomiting (PONV) Past Psychological History: No Psychological Hx Reported Smoking Status: Former smoker Past Alcohol Use History: Occasional Additional Past Alcohol Use History / Comment(s): QUIT SMOKING 6 YEARS AGO. Past Drug Use History: None Reported - Past Family History Mother Family Medical History: No Reported History Medications and Allergies Home Medications Medication Instructions Recorded Confirmed Type Benazepril/Hydrochlorothiazide 1 tab PO DAILY 03/16/15 02/03/21 History [Lotensin Hct 20-12.5 mg Tablet] amLODIPine [Norvasc] 5 mg PO DAILY 02/03/21 02/03/21 History Allergies Allergy/AdvReac Type Severity Reaction Status Date / Time No Known Allergies Allergy Verified 02/03/21 21:47 Physical Exam Vitals: Vital Signs Temp Pulse Pulse Resp BP BP Pulse Ox 02/04/21 05:00 99.1 F 83 20 173/84 96 02/03/21 23:50 98.9 F 86 20 148/76 95 02/03/21 23:15 98.7 F 87 20 146/84 97 02/03/21 22:41 79 20 141/77 96 02/03/21 21:10 88 20 150/80 98 02/03/21 19:55 98.6 F 84 20 161/89 96 Intake and Output 02/03/21 02/04/21 02/04/21 22:59 06:59 14:59 Intake Total 1120 Balance 1120 Intake: Intake, IV Titration 1000 Amount Piperacillin-Tazobactam 3 100 .375 gm In Sodium Chloride 0.9% 100 ml @ 25 mls/hr IVPB Q8H [facility] Rx#: [id number] Sodium Chloride 0.9% 1, 900 000 ml @ 75 mls/hr IV . [id number] [facility] Rx#:[id number] Oral 120 Other: # Voids 1 Weight 99.79 kg 99.79 kg Results CBC & Chem 7: 02/03/21 20:12 02/03/21 20:12 Labs: Abnormal Lab Results - Last 24 Hours (Table) 02/03/21 02/03/21 02/03/21 Range/Units 20:12 20:12 20:12 WBC 20.1 H (3.8-10.6) k/uL Neutrophils # 16.8 H (1.3-7.7) k/uL BUN 21 H (9-20) mg/dL Glucose 121 H (74-99) mg/dL Urine Blood Small H (Negative) Amorphous Sediment Rare H (None) /hpf Urine Mucus Rare H (None) /hpf Thrombosis Risk Factor Assmnt - Choose All That Apply Each Factor Represents 1 point: Obesity (BMI >25) Each Risk Factor Represents 2 Points: Age 61-74 years Thrombosis Risk Factor Assessment Total Risk Factor Score: 3 Thrombosis Risk Factor Assessment Level: Moderate Risk
[2021-02-05 05:15] LABS: Basophils % (A) 0 %; Eosinophils # (A) 0.2 k/uL (0-0.7); Eosinophils % (A) 1 %; HCT 41.9 % (39.0-53.0); HGB 14.3 gm/dL (13.0-17.5); Lymphocytes # (A) 1.8 k/uL (1.0-4.8); Lymphocytes % (A) 13 %; MCH 31.3 pg (25.0-35.0); MCHC 34.1 g/dL (31.0-37.0); MCV 91.6 fL (80.0-100.0); Mean Platelet Volume 7.7; Monocytes # (A) 0.5 k/uL (0-1.0); Monocytes % (A) 4 %; Neutrophils # (A) 11.2 k/uL (1.3-7.7); Neutrophils % (A) 81 %; Platelet Count 238 k/uL (150-450); RBC 4.58 m/uL (4.30-5.90); RDW 12.7 % (11.5-15.5); WBC 13.8 k/uL (3.8-10.6)
[2021-02-05] MEDS: PIPERACILLIN-TAZOBACTAM 3.375 GM in SODIUM CHLORIDE 0.9% 100 ML IVPB SCH ×3 (05:29→22:16)
[2021-02-05] MEDS: SODIUM CHLORIDE 0.9% 1,000 ML IV SCH ×2 (05:30→18:28)
[2021-02-05] MEDS: lisinopriL 20 MG TAB PO SCH (09:01)
[2021-02-05] MEDS: ENOXAPARIN 40 MG/0.4 ML SYRINGE SQ SCH (09:01)
[2021-02-05] MEDS: amLODIPine 5 MG TAB PO SCH (09:01)
--- NOTE | 2021-02-05 19:52 | P.PN ---
Progress Note - Text Progress Note Date: 02/05/21 Chief Complaint: Abdominal pain History of presenting complaint: This is a pleasant 60-year-old patient of Dr. Martinez. Chronic stable medical conditions include hypertension, patient had 1 prior episode of diverticulitis about 3 years ago. Patient started having left lower quadrant abdominal pain yesterday. Became worse. Had's couple of loose stools. No nausea vomiting or fevers no chills. Acid symptoms became more prominent decided to come to the ER. Computed tomography scan did confirm focal Dr. Ross. Was put on IV fluids IV antibiotics and admitted for the same. with some decrease of appetite since episode Admitted with mid sigmoid diverticulitis with possible microperforation. Started IV Zosyn. On clear liquids. Today-abdominal pain is better. Had 2 or 3 loose stools. No nausea vomiting. No fever. Has been out of bed. Review of systems: Was done for constitutional, cardiovascular, GI, pulmonary. relevant finding as above Active Medications Acetaminophen (Acetaminophen Tab 500 Mg Tab) 500 mg PO Q4HR PRN PRN Reason: Fever and/ or Pain Al Hydroxide/Mg Hydroxide (Mag Hydrox/Al Hydrox/Simeth 30 Ml Cup) 15 ml PO Q6HR PRN PRN Reason: Indigestion Alprazolam (Alprazolam 0.25 Mg Tab) 0.25 mg PO Q6HR PRN PRN Reason: Anxiety Amlodipine Besylate (Amlodipine 5 Mg Tab) 5 mg PO DAILY [facility] Last Admin: 02/05/21 09:01 Dose: 5 mg Documented by: Calcium Carbonate/Glycine (Calcium Carbonate 500 Mg Chewable) 1,000 mg PO Q4HR PRN PRN Reason: Dyspepsia Enoxaparin Sodium (Enoxaparin 40 Mg/0.4 Ml Syringe) 40 mg SQ DAILY [facility] Last Admin: 02/05/21 09:01 Dose: 40 mg Documented by: Hydromorphone HCl (Hydromorphone 1 Mg/Ml 1 Ml Syringe) 1 mg IVP Q3HR PRN PRN Reason: Severe Pain Last Admin: 02/04/21 12:53 Dose: 1 mg Documented by: Piperacillin Sod/Tazobactam (Sod 3.375 gm/ Sodium Chloride) 100 mls @ 25 mls/hr IVPB Q8H [facility] Last Admin: 02/05/21 14:16 Dose: 25 mls/hr Documented by: Sodium Chloride (Saline 0.9%) 1,000 mls @ 75 mls/hr IV .[id number] [facility] Last Admin: 02/05/21 18:28 Dose: 75 mls/hr Documented by: Lisinopril (Lisinopril 20 Mg Tab) 20 mg PO DAILY [facility] Last Admin: 02/05/21 09:01 Dose: 20 mg Documented by: Melatonin (Melatonin 3 Mg Tablet) 3 mg PO HS PRN PRN Reason: Insomnia Naloxone HCl (Naloxone 0.4 Mg/Ml 1 Ml Vial) 0.2 mg IV Q2M PRN PRN Reason: Opioid Reversal Ondansetron HCl (Ondansetron 4 Mg/2 Ml Vial) 4 mg IVP Q8HR PRN PRN Reason: Nausea And Vomiting Past medical history to include: Hypertension, diverticulitis Social history: . database programmer analyst. Alcohol occasionally. Quit smoking 6 is ago. Family history: Reviewed, noncontributory to presentation Physical examination: VITAL SIGNS: 98.8, 78, 18, 1 3581, 95% room air GENERAL: BMI 32.5, reclining in bed, looking better EYES: Pupils equal. Conjunctiva normal. HEENT: External appearance of nose and ears normal, oral cavity grossly normal. NECK: JVD not raised; masses not palpable. HEART: First and second heart sounds are normal; no edema. LUNGS: Respiratory rate normal; clear to auscultation. ABDOMEN: Soft, decreased left lower quadrant tenderness, no guarding rigidity, liver spleen not palpable, no masses palpable. PSYCH: Alert and oriented x3; mood and affect normal. INVESTIGATIONS, reviewed in the clinical context: February 05: WBC 13.8 hemoglobin 14.3 WBC 20.1 hemoglobin 16.2 platelets 299 potassium 4.1 creatinine 1.15 Colon minus [PCR]-not detected Computed tomography scan of the abdomen-small bilateral renal cortical cyst up to 1 cm. Mild fat stranding and wall thickening of the mid sigmoid colon. Numerous diverticula. There are some small anterior extraluminal air bubbles. Assessment and plan: -Acute mid sigmoid diverticulitis with what appears to be possible microperforation. Patient be started on IV Zosyn. IV fluids. Improving. Advance to full liquid diet -Essential hypertension. Antihypertensive from home were resumed. -Leukocytosis from diverticulitis -Colonic diverticulosis -Obesity BMI 32.5. Follow-up with PCP for weight loss measures. -DVT prophylaxis. Put patient on subcu Lovenox. Discussed with patient. Advance to full liquids. Increase activity.
[2021-02-06] MEDS: SODIUM CHLORIDE 0.9% 1,000 ML IV SCH ×2 (04:44→21:23)
[2021-02-06 06:13] LABS: Basophils % (A) 0 %; Eosinophils # (A) 0.2 k/uL (0-0.7); Eosinophils % (A) 2 %; HCT 42.4 % (39.0-53.0); HGB 14.1 gm/dL (13.0-17.5); Lymphocytes # (A) 1.6 k/uL (1.0-4.8); Lymphocytes % (A) 14 %; MCH 30.3 pg (25.0-35.0); MCHC 33.2 g/dL (31.0-37.0); MCV 91.4 fL (80.0-100.0); Monocytes # (A) 0.7 k/uL (0-1.0); Monocytes % (A) 6 %; Neutrophils # (A) 8.7 k/uL (1.3-7.7); Neutrophils % (A) 77 %; Platelet Count 235 k/uL (150-450); RBC 4.64 m/uL (4.30-5.90); WBC 11.3 k/uL (3.8-10.6)
[2021-02-06] MEDS: PIPERACILLIN-TAZOBACTAM 3.375 GM in SODIUM CHLORIDE 0.9% 100 ML IVPB SCH ×3 (06:53→21:22)
[2021-02-06] MEDS: amLODIPine 5 MG TAB PO SCH (09:30)
[2021-02-06] MEDS: ENOXAPARIN 40 MG/0.4 ML SYRINGE SQ SCH (09:30)
[2021-02-06] MEDS: lisinopriL 20 MG TAB PO SCH (09:30)
--- NOTE | 2021-02-06 20:43 | P.GSCN ---
History of Present Illness Consult date: 02/06/21 History of present illness: CHIEF COMPLAINT: Diverticulitis HISTORY OF PRESENT ILLNESS: The patient is a 60 year old male who comes in with aching and crampy left lower quadrant abdominal pain for more than two days. He had previous attack of diverticulitis three years ago with incidental finding of renal cell carcinoma found on CT scan per his recollection. 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 He reports his crampy aching abdominal pain has improved. General surgery is consulted for acute diverticulitis. PAST MEDICAL HISTORY: See list and reviewed PAST SURGICAL HISTORY: See list and reviewed MEDICATIONS: See list and reviewed ALLERGIES: See list and reviewed SOCIAL HISTORY: See list and reviewed FAMILY HISTORY: See list and reviewed REVIEW OF ORGAN SYSTEMS: CONSTITUTIONAL: No fevers or chills. No recent weight loss. EYES: Denies any trouble with vision. No glasses. HEENT: No difficulties with hearing. No nosebleeds. No difficulty swallowing. RESPIRATORY: Denies pneumonia. Denies any troubles with breathing or dyspnea on exertion. CARDIOVASCULAR: Denies any chest pain, palpitations, or recent heart attacks. Has hypertensive heart disease. GASTROINTESTINAL: Denies fatty food intolerance. Has change in bowel habits and gas bloat. GENITOURINARY: Denies any blood in urine. Has increased urinary frequency. Past renal cell cancer. NEUROLOGICAL: Denies any numbness or tingling along the distal extremities. No seizure disorders or headaches. MUSCULOSKELETAL: Has back pain, stiffness or joint arthritis. SKIN: No current skin cancer. No rash. PSYCHIATRIC: Denies current depression or suicidal thoughts. ENDOCRINE: Denies current thyroid disorders. Denies any blood sugar glucose intolerance. HEME/LYMPHATIC: Denies any lumps and bumps around the neck. No recent deep venous thrombosis. ALLERGY/IMMUNOLOGY: No immunoglobulin therapy. No immune deficiencies. BREAST: Denies current breast lumps, pain or nipple discharge. PHYSICAL EXAM: VITALS: Reviewed CONSTITUTIONAL: Well developed and in no acute distress. EYES: Conjuctivae without sclera icterus. Extraocular movements grossly intact. HEAD, EARS, NOSE, THROAT: Moist buccal mucosa. Head is atraumatic, normocephalic. Hears conversational speech. No nasal drainage. NECK: Supple. No JV distention. No thyroidomegaly. RESPIRATORY: Non-labored respirations and equal bilateral excursions. No gross wheezes. CARDIOVASCULAR: Regular rate and rhythm. Palpable 2+ radial pulses. ABDOMEN: Soft. No peritonitis. Tender along left lower abdomen. MUSCULOSKELETAL: Nail and fingers with good capillary refill. SKIN: Warm and well perfused with good skin turgor. NEUROLOGIC: Cranial nerves II through XII grossly intact. Sensation upper and extremities intact. No focal or lateralizing signs. PSYCH: Appropriate affect. Alert and oriented to person, place and time. Displays appropriate insight. CLINCAL LABS: Reviewed. WBC on admission over 21,000 now over 11,000. Coronavirus negative. IMAGING: Independently reviewed CT of the abdomen pelvis independently reviewed without free perforation of sigmoid diverticulitis. This is my independent interpretation. No small bowel obstruction. RADIOLOGY: Report reviewed RECORDS: Colonoscopy from 2014 reviewed with diverticulosis. Recent CT of the abdomen and pelvis 01/22/2021 with enlarged prostate. Left adrenal gland tumor 2 cm and right adrenal gland tumor 1 cm with possible metastases ASSESSMENT: 1. Acute diverticulitis with left lower quadrant pain 2. Renal cell cancer 3. Adrenal tumor PLAN: 1. Continue conservative management with IV antibiotics. 2. At this time, his abdominal pain has improved. No acute surgical intervention at this time. 3. Management of adrenal tumor with history of renal cell cancer. Thank you for this kind consultation. Past Medical History Past Medical History: Hypertension Additional Past Medical History / Comment(s): Diverticulitis. renal cx. History of Any Multi-Drug Resistant Organisms: None Reported Past Surgical History: No Surgical Hx Reported Additional Past Surgical History / Comment(s): SINUS SURG, renal surgery Past Anesthesia/Blood Transfusion Reactions: Motion Sickness, Postoperative Nausea & Vomiting (PONV) Past Psychological History: No Psychological Hx Reported Smoking Status: Former smoker Past Alcohol Use History: Occasional Additional Past Alcohol Use History / Comment(s): QUIT SMOKING 6 YEARS AGO. Past Drug Use History: None Reported - Past Family History Mother Family Medical History: No Reported History Medications and Allergies Home Medications Medication Instructions Recorded Confirmed Type Benazepril/Hydrochlorothiazide 1 tab PO DAILY 03/16/15 02/03/21 History [Lotensin Hct 20-12.5 mg Tablet] amLODIPine [Norvasc] 5 mg PO DAILY 02/03/21 02/03/21 History Allergies Allergy/AdvReac Type Severity Reaction Status Date / Time No Known Allergies Allergy Verified 02/03/21 21:47 Surgical - Exam Vital Signs Temp Pulse Resp BP Pulse Ox 98.6 F 84 20 161/89 96 02/03/21 19:55 02/03/21 19:55 02/03/21 19:55 02/03/21 19:55 02/03/21 19:55 Results - Labs 02/06/21 05:22 02/03/21 20:12 Abnormal Lab Results - Last 24 Hours (Table) 02/06/21 Range/Units 05:22 WBC 11.3 H (3.8-10.6) k/uL Neutrophils # 8.7 H (1.3-7.7) k/uL Microbiology - Last 24 Hours (Table) 02/03/21 22:21 Blood Culture - Preliminary Blood No Growth after 48 hours 02/03/21 22:15 Blood Culture - Preliminary Blood No Growth after 48 hours Assessment and Plan (1) Renal cell cancer Current Visit: Yes Status: Acute Code(s): C64.9 - MALIGNANT NEOPLASM OF UNSP KIDNEY, EXCEPT RENAL PELVIS SNOMED Code(s): 651436134 (2) Left lower quadrant abdominal pain Current Visit: Yes Status: Acute Code(s): R10.32 - LEFT LOWER QUADRANT PAIN SNOMED Code(s): 993577373 (3) Adrenal tumor Current Visit: Yes Status: Acute Code(s): D49.7 - NEOPLM OF UNSP BEHAV OF ENDO GLANDS AND OTH PRT NERVOUS SYS SNOMED Code(s): 339564603 (4) Leukocytosis Current Visit: Yes Status: Acute Code(s): D72.829 - ELEVATED WHITE BLOOD CELL COUNT, UNSPECIFIED SNOMED Code(s): 339455911 (5) Acute diverticulitis Current Visit: Yes Status: Acute Code(s): K57.92 - DVTRCLI OF INTEST, PART UNSP, W/O PERF OR ABSCESS W/O BLEED SNOMED Code(s): 863008963
--- NOTE | 2021-02-06 23:46 | P.PN ---
Progress Note - Text Progress Note Date: 02/06/21 Chief Complaint: Abdominal pain History of presenting complaint: This is a pleasant 60-year-old patient of Dr. Martinez. Chronic stable medical conditions include hypertension, patient had 1 prior episode of diverticulitis about 3 years ago. Patient started having left lower quadrant abdominal pain yesterday. Became worse. Had's couple of loose stools. No nausea vomiting or fevers no chills. Acid symptoms became more prominent decided to come to the ER. Computed tomography scan did confirm focal Dr. Ross. Was put on IV fluids IV antibiotics and admitted for the same. with some decrease of appetite since episode Admitted with mid sigmoid diverticulitis with possible microperforation. Started IV Zosyn. On clear liquids. Today-abdominal pain much improved. Tolerating full liquid diet. Up to the bathroom. Had loose stools. No fever Review of systems: Was done for constitutional, cardiovascular, GI, pulmonary. relevant finding as above Active Medications Acetaminophen (Acetaminophen Tab 500 Mg Tab) 500 mg PO Q4HR PRN PRN Reason: Fever and/ or Pain Al Hydroxide/Mg Hydroxide (Mag Hydrox/Al Hydrox/Simeth 30 Ml Cup) 15 ml PO Q6HR PRN PRN Reason: Indigestion Alprazolam (Alprazolam 0.25 Mg Tab) 0.25 mg PO Q6HR PRN PRN Reason: Anxiety Amlodipine Besylate (Amlodipine 5 Mg Tab) 5 mg PO DAILY [facility] Last Admin: 02/06/21 09:30 Dose: 5 mg Documented by: Calcium Carbonate/Glycine (Calcium Carbonate 500 Mg Chewable) 1,000 mg PO Q4HR PRN PRN Reason: Dyspepsia Enoxaparin Sodium (Enoxaparin 40 Mg/0.4 Ml Syringe) 40 mg SQ DAILY [facility] Last Admin: 02/06/21 09:30 Dose: 40 mg Documented by: Hydromorphone HCl (Hydromorphone 1 Mg/Ml 1 Ml Syringe) 1 mg IVP Q3HR PRN PRN Reason: Severe Pain Last Admin: 02/04/21 12:53 Dose: 1 mg Documented by: Piperacillin Sod/Tazobactam (Sod 3.375 gm/ Sodium Chloride) 100 mls @ 25 mls/hr IVPB Q8H [facility] Last Admin: 02/06/21 21:22 Dose: 25 mls/hr Documented by: Sodium Chloride (Saline 0.9%) 1,000 mls @ 75 mls/hr IV .[id number] [facility] Last Admin: 02/06/21 21:23 Dose: 75 mls/hr Documented by: Lisinopril (Lisinopril 20 Mg Tab) 20 mg PO DAILY [facility] Last Admin: 02/06/21 09:30 Dose: 20 mg Documented by: Melatonin (Melatonin 3 Mg Tablet) 3 mg PO HS PRN PRN Reason: Insomnia Last Admin: 02/05/21 20:27 Dose: 3 mg Documented by: Naloxone HCl (Naloxone 0.4 Mg/Ml 1 Ml Vial) 0.2 mg IV Q2M PRN PRN Reason: Opioid Reversal Ondansetron HCl (Ondansetron 4 Mg/2 Ml Vial) 4 mg IVP Q8HR PRN PRN Reason: Nausea And Vomiting Past medical history to include: Hypertension, diverticulitis Social history: . asp net programmer. Alcohol occasionally. Quit smoking 6 is ago. Family history: Reviewed, noncontributory to presentation Physical examination: VITAL SIGNS: 98.3, 66, 17, 127/76, 96% room air GENERAL: BMI 32.5, sitting up, looking much improved EYES: Pupils equal. Conjunctiva normal. HEENT: External appearance of nose and ears normal, oral cavity grossly normal. NECK: JVD not raised; masses not palpable. HEART: First and second heart sounds are normal; no edema. LUNGS: Respiratory rate normal; clear to auscultation. ABDOMEN: Soft, minimal left lower quadrant tenderness, no guarding rigidity, liver spleen not palpable, no masses palpable. PSYCH: Alert and oriented x3; mood and affect normal. INVESTIGATIONS, reviewed in the clinical context: February 06: WBC 11.3 hemoglobin 14.1 February 05: WBC 13.8 hemoglobin 14.3 WBC 20.1 hemoglobin 16.2 platelets 299 potassium 4.1 creatinine 1.15 Colon minus [PCR]-not detected Computed tomography scan of the abdomen-small bilateral renal cortical cyst up to 1 cm. Mild fat stranding and wall thickening of the mid sigmoid colon. Numerous diverticula. There are some small anterior extraluminal air bubbles. Assessment and plan: -Acute mid sigmoid diverticulitis with what appears to be possible microperforation. Patient be started on IV Zosyn. IV fluids. We'll advance to soft bland diet -Essential hypertension. Antihypertensive from home were resumed. -Leukocytosis from diverticulitis -Colonic diverticulosis -Obesity BMI 32.5. Follow-up with PCP for weight loss measures. -DVT prophylaxis. Put patient on subcu Lovenox. Discussed with the patient. Much better. We'll get a surgical consult so they can follow-up upon discharge. Hopefully discharge in 24 hours
[2021-02-07 05:06] VITALS: BP 143/87; PULSE 64; RESP 14; TEMP 97.9
[2021-02-07] MEDS: PIPERACILLIN-TAZOBACTAM 3.375 GM in SODIUM CHLORIDE 0.9% 100 ML IVPB SCH (06:13)
[2021-02-07] MEDS: amLODIPine 5 MG TAB PO SCH ×2 (08:02→08:04)
[2021-02-07] MEDS: lisinopriL 20 MG TAB PO SCH (08:02)
[2021-02-07] MEDS: ENOXAPARIN 40 MG/0.4 ML SYRINGE SQ SCH (08:02)
[2021-02-07] MEDS: SODIUM CHLORIDE 0.9% 1,000 ML IV SCH (08:05)
--- NOTE | 2021-02-08 17:57 | P.DS ---
Providers Date of admission: 02/03/21 22:27 Expected date of discharge: 02/07/21 Attending physician: Arturo Rowley Consults: 02/06/21 10:42 Consult Physician Routine Consulting Provider: Rosalia Arriaga Consult Reason/Comments: diverticulitis Do you want consulting provider notified?: Yes [facility] Course: Chief Complaint: Abdominal pain History of presenting complaint: This is a pleasant 60-year-old patient of Dr. Martinez. Chronic stable medical conditions include hypertension, patient had 1 prior episode of diverticulitis about 3 years ago. Patient started having left lower quadrant abdominal pain yesterday. Became worse. Had's couple of loose stools. No nausea vomiting or fevers no chills. Acid symptoms became more prominent decided to come to the ER. Computed tomography scan did confirm focal Dr. Ross. Was put on IV fluids IV antibiotics and admitted for the same. with some decrease of appetite since episode Admitted with mid sigmoid diverticulitis with possible microperforation. Started IV Zosyn. On clear liquids. Today-abdominal pain resolved. Tolerating diet. Seen by Dr. Hampton. Cleared for discharge. We will follow up with surgery. Soft bland diet. Consultation: Dr. Hampton from general surgery Past medical history to include: Hypertension, diverticulitis Social history: . web developer programmer. Alcohol occasionally. Quit smoking 6 is ago. Family history: Reviewed, noncontributory to presentation Physical examination: VITAL SIGNS: 98.9, 64, 14, 100 4397, 99% on room air NECK: JVD not raised; masses not palpable. HEART: First and second heart sounds are normal; no edema. LUNGS: Respiratory rate normal; clear to auscultation. ABDOMEN: Soft, no tenderness, no guarding rigidity, liver spleen not palpable, no masses palpable. PSYCH: Alert and oriented x3; mood and affect normal. INVESTIGATIONS, reviewed in the clinical context: February 06: WBC 11.3 hemoglobin 14.1 February 05: WBC 13.8 hemoglobin 14.3 WBC 20.1 hemoglobin 16.2 platelets 299 potassium 4.1 creatinine 1.15 Colon minus [PCR]-not detected Computed tomography scan of the abdomen-small bilateral renal cortical cyst up to 1 cm. Mild fat stranding and wall thickening of the mid sigmoid colon. Numerous diverticula. There are some small anterior extraluminal air bubbles. Assessment and plan: -Acute mid sigmoid diverticulitis with what appears to be possible microperforation. Patient be started on IV Zosyn. DC on Augmentin -Essential hypertension. Antihypertensive from home were resumed. -Leukocytosis from diverticulitis -Colonic diverticulosis -Obesity BMI 32.5. Follow-up with PCP for weight loss measures. -DVT prophylaxis. Put patient on subcu Lovenox. Disposition: Home Patient Condition at Discharge: Stable Plan - Discharge Summary New Discharge Prescriptions: New Amoxicillin/Potassium Clav [Augmentin 875-125 Tablet] 1 tab PO Q12HR 1 Days #20 tab Continue Benazepril/Hydrochlorothiazide [Lotensin Hct 20-12.5 mg Tablet] 1 tab PO DAILY amLODIPine [Norvasc] 5 mg PO DAILY Discharge Medication List Benazepril/Hydrochlorothiazide [Lotensin Hct 20-12.5 mg Tablet] 1 tab PO DAILY 03/16/15 [History] amLODIPine [Norvasc] 5 mg PO DAILY 02/03/21 [History] Amoxicillin/Potassium Clav [Augmentin 875-125 Tablet] 1 tab PO Q12HR 1 Days #20 tab 02/07/21 [Rx] Follow up Appointment(s)/Referral(s): Dylan Martinez MD [Primary Care Provider] - 02/19/21 2:00 pm Rosalia Arriaga MD [STAFF PHYSICIAN] - 02/26/21 1:15 pm Activity/Diet/Wound Care/Special Instructions: soft bland Discharge Disposition: HOME SELF-CARE
== END 2021-02-07 12:20 | disposition home or self-care (01) ==
LOC: EC 19:53 → 5NMEDONC 22:27 → INTOOBSV 22:27 → UNDODISIN 02-07 12:20
PROVIDERS: ADMIT Hospitalist; ATTEND Hospitalist
DX: K57.20 Diverticulitis of large intestine with perforation and abscess without bleeding (principal); I10 Essential (primary) hypertension; E66.9 Obesity, unspecified; Z68.32 Body mass index [BMI] 32.0-32.9, adult; D72.829 Elevated white blood cell count, unspecified; K57.30 Diverticulosis of large intestine without perforation or abscess without bleeding; G47.00 Insomnia, unspecified; F41.9 Anxiety disorder, unspecified; D49.7 Neoplasm of unspecified behavior of endocrine glands and other parts of nervous system; Z20.822 Contact with and (suspected) exposure to COVID-19; K30 Functional dyspepsia; Z79.899 Other long term (current) drug therapy; Z85.528 Personal history of other malignant neoplasm of kidney; Z87.891 Personal history of nicotine dependence
CPT/HCPCS: 96376 ×2; 96361 ×4; 96366 ×5; 96372 ×5; 96365; 96375; 99285; 36415; 80053; 82150; 83690; 85025 ×3; 81001; 87040; 87635; 74177; G0378 ×5; J2543 ×5; J2270; J1650 ×5; J1170 ×2; Q9967

== ENCOUNTER → 2021-02-28 | Outpatient (CLI) | payer BC ==
--- NOTE | 2021-02-28 13:36 | CT ---
EXAMINATION TYPE: CT abdomen pelvis wo con DATE OF EXAM: 02/28/2021 COMPARISON: 02/03/2021 and 01/22/2021 HISTORY: 61-year-old male K59.92, Follow up diverticulitis CT DLP: 767.6 mGycm. Automated exposure control for dose reduction was used. TECHNIQUE: Contiguous axial scanning of the abdomen and pelvis without IV contrast. Coronal and sagit juan manuel reconstructions performed. FINDINGS: Heart normal size without pericardial effusion. Stable strandy scarring or atelectasis inferior lingu la. No pleural effusion. Tiny hiatal hernia. Noncontrast appearance of the liver, gallbladder, spleen, and pancreas show no gross abnormality. Sta ble low density thickening of the left adrenal gland. Stable 1.3 cm nodularity of the right adrenal g land. 1.1 cm posterior left renal cortical cyst is unchanged. Some post surgical change with linear high de nsity along the posterior capsule of the mid to lower right kidney stable. No dilated small bowel, free fluid, or free air. No mesenteric or retroperitoneal lymphadenopathy. Normal appendix. Oral contrast has entered the colon and reached up to the splenic flexure. Redemonstrated is sigmoid diverticulosis. There is persistent moderate thickening and pericolonic fat stranding at the level of the proximal sigmoid colon. There is linear extension of soft tissue stran ding to the left bladder dome, axial images 70 and 71 and coronal image 40. However, no bladder wall thickening or intraluminal bladder air to suggest fistula at this time. Bladder urine distended. Prostate gland measures 4.7 cm wide. No abnormal fluid collection in the pel vis or pelvic lymphadenopathy. Bones: Mild degenerative change in both hips. Hypertrophic facet arthropathy mid to lower lumbar spin e. IMPRESSION: 1. Sigmoid diverticulosis with findings of acute diverticulitis along the proximal sigmoid with mode rate inflammation. This is very slightly more proximal than the diverticulitis seen on 02/03/2021. Con equipment mechanic recurrent acute diverticulitis. 2. While no abscess or free air is seen, there is some linear density extending from the inflamed se gment of colon to the dome of the bladder. If inflammation continues, the patient may be at risk for development of a fistulous tract.
== END | disposition home or self-care (01) ==
LOC: RADCTMAIN 11:00
PROVIDERS: ATTEND Family Medicine
DX: K57.30 Diverticulosis of large intestine without perforation or abscess without bleeding (principal); K57.92 Diverticulitis of intestine, part unspecified, without perforation or abscess without bleeding; K63.89 Other specified diseases of intestine; N32.89 Other specified disorders of bladder
CPT/HCPCS: 74176

== ENCOUNTER → 2021-02-28 | Outpatient (CLI) | payer BC | END | disposition home or self-care (01) | LOC: LABWHC1 11:27 | PROVIDERS: ATTEND Surgery Plastic and Reconstructive Surgery | DX: I11.9 Hypertensive heart disease without heart failure (principal) | CPT/HCPCS: 36415; 93005 ==

== ENCOUNTER 2021-03-20 07:38 | Day surgery (SDC) | payer BC ==
[2021-03-18 11:22] VITALS: BMI 31.0
[~2021-03-20 07:38] MED LIST changes: -DEXAMETHASONE SOD PHOSPHATE 10 MG/ML 1 ML VIAL IV ONE; -HYDROmorphone 0.5 MG/0.5 ML SYRINGE IVP PRN; +LACTATED RINGERS 1,000 ML IV SCH; -MIDAZOLAM 2 MG/2 ML VIAL IV PRN; -ONDANSETRON 4 MG/2 ML VIAL IVP ONE; -ONDANSETRON 4 MG/2 ML VIAL IVP PRN
--- NOTE | 2021-03-20 07:39 | P.GSHP ---
History of Present Illness H&P Date: 03/20/21 CHIEF COMPLAINT: Colon screen HISTORY OF PRESENT ILLNESS: The patient is a 61-year-old male who presents for colon screen. Lower endoscopy was offered for further evaluation and management. PAST MEDICAL HISTORY: Please see list. PAST SURGICAL HISTORY: Please see list. MEDICATIONS: Please see list. ALLERGIES: Please see list. SOCIAL HISTORY: No illicit drug use FAMILY HISTORY: No reports of Crohn disease or ulcerative colitis. REVIEW OF ORGAN SYSTEMS: CONSTITUTIONAL: No reports of fevers or chills. PHYSICAL EXAM: VITAL SIGNS: Stable GENERAL: Well-developed pleasant in no acute distress. HEENT: No scleral icterus. Extraocular movements grossly intact. Moist buccal mucosa. NECK: Supple without lymphadenopathy. CHEST: Unlabored respirations. Equal bilateral excursions. CARDIOVASCULAR: Regular rate and rhythm. Distal 2+ pulses. ABDOMEN: Soft, nontender, nondistended. MUSCULOSKELETAL: No clubbing, cyanosis, or edema. ASSESSMENT: 1. Colon screen. PLAN: 1. Recommend proceeding with a lower endoscopy Past Medical History Past Medical History: Hypertension Additional Past Medical History / Comment(s): Diverticulitis. renal CA, left adrenal CA History of Any Multi-Drug Resistant Organisms: None Reported Past Surgical History: No Surgical Hx Reported Additional Past Surgical History / Comment(s): SINUS SURG, rt partial nephrectomy,left Adrenalectomy Past Anesthesia/Blood Transfusion Reactions: Motion Sickness, Postoperative Nausea & Vomiting (PONV) Smoking Status: Former smoker - Past Family History Mother Family Medical History: No Reported History Medications and Allergies Home Medications Medication Instructions Recorded Confirmed Type Benazepril/Hydrochlorothiazide 1 tab PO DAILY 03/16/15 03/18/21 History [Lotensin Hct 20-12.5 mg Tablet] amLODIPine [Norvasc] 10 mg PO QAM 02/03/21 03/18/21 History Fexofenadine HCl [Erinn Allergy] 180 mg PO DAILY 03/18/21 03/18/21 History Zinc 50 mg PO DAILY 03/18/21 03/18/21 History Allergies Allergy/AdvReac Type Severity Reaction Status Date / Time No Known Allergies Allergy Verified 03/18/21 11:00
[2021-03-20 08:09] VITALS: RESP 16; TEMP 98.6
[2021-03-20] MEDS ORDERED: ONDANSETRON 4 MG/2 ML VIAL ONE (08:25)
[2021-03-20] MEDS ORDERED: ONDANSETRON 4 MG/2 ML VIAL IVP STA (08:26)
[2021-03-20] MEDS ORDERED: PROPOFOL 10 MG/ML 20 ML VIAL IV ONE (09:13)
--- NOTE | 2021-03-20 09:51 | P.PCN ---
Date of Procedure: 03/20/21 Description of Procedure: PREOPERATIVE DIAGNOSIS: Colonoscopy screening History of perforated diverticulitis POSTOPERATIVE DIAGNOSIS: Tubular adenoma ascending colon Sigmoid diverticulitis Internal hemorrhoids, grade 2 OPERATION: Colonoscopy to the ileocecal valve and appendiceal orifice, cecum Colonoscopy with hot snare polypectomy SURGEON: Rosalia Arriaga MD. ANESTHESIA: MAC. INDICATIONS: The patient is an 61-year-old male who presents for colonoscopy screening. He has recent history of perforated diverticulitis. enefits and risks were described and informed consent was obtained. DESCRIPTION OF PROCEDURE: The patient had undergone Sutab prep. The patient had been brought into the operating room and laid in the left lateral decubitus position. After adequate intravenous sedation, the rectum was examined with 2% lidocaine jelly. The prostate was unremarkable. External hemorrhoids were encountered. The rectal tone was within normal limits. No lesions were palpated in the rectal vault. An Olympus colonoscope was advanced until the cecum, ileocecal valve and appendiceal orifice were clearly viewed. The prep was excellent. Sigmoid diverticulosis with focal diverticulitis between 25-30 cm from the anal verge was encountered. Colonic polyps were found and removed. Focal colitis of the sigmoid colon was found. Retroflexion of the scope demonstrated grade 2 internal hemorrhoids without active bleeding or inflammation. The colon was desufflated. The patient had tolerated the procedure well. Withdrawal time was over 6 minutes. FINDINGS: Aronchick preparation quality scale 1 (1-5) Internal hemorrhoids, grade 2 External hemorrhoids, grade 2 No arteriovenous malformations. Sigmoid diverticulosis with recent diverticulitis Removal of 2 polyp: - Snare polypectomy 25 cm from the anal verge, 8 mm tubular adenoma with long stalk. Focal colitis and sigmoid colon RECOMMENDATIONS: Repeat colonoscopy 3 years, 2023 Plan - Discharge Summary Discharge Rx Participant: No New Discharge Prescriptions: Continue Benazepril/Hydrochlorothiazide [Lotensin Hct 20-12.5 mg Tablet] 1 tab PO DAILY amLODIPine [Norvasc] 10 mg PO QAM Fexofenadine HCl [Erinn Allergy] 180 mg PO DAILY Zinc 50 mg PO DAILY Discharge Medication List Benazepril/Hydrochlorothiazide [Lotensin Hct 20-12.5 mg Tablet] 1 tab PO DAILY 03/16/15 [History] amLODIPine [Norvasc] 10 mg PO QAM 02/03/21 [History] Fexofenadine HCl [Erinn Allergy] 180 mg PO DAILY 03/18/21 [History] Zinc 50 mg PO DAILY 03/18/21 [History] Follow up Appointment(s)/Referral(s): Rosalia Arriaga MD [STAFF PHYSICIAN] - 03/28/21 Patient Instructions/Handouts: Colorectal Polyps (DC), Diverticulitis (DC), Diverticulitis Diet (GEN) Activity/Diet/Wound Care/Special Instructions: Repeat colonoscopy 3 years, 2023 Discharge Disposition: HOME SELF-CARE
[2021-03-20 10:07] VITALS: BP 151/84; PULSE 61
== END 2021-03-20 10:30 | disposition home or self-care (01) ==
LOC: ORWHC2ENDO 07:38
PROVIDERS: ATTEND Surgery Plastic and Reconstructive Surgery
DX: Z12.11 Encounter for screening for malignant neoplasm of colon (principal); K63.5 Polyp of colon; K57.32 Diverticulitis of large intestine without perforation or abscess without bleeding; K64.1 Second degree hemorrhoids; I10 Essential (primary) hypertension; Z87.19 Personal history of other diseases of the digestive system; Z85.528 Personal history of other malignant neoplasm of kidney; Z98.890 Other specified postprocedural states; Z90.5 Acquired absence of kidney; Z87.891 Personal history of nicotine dependence; Z79.899 Other long term (current) drug therapy
CPT/HCPCS: 88305; 45385; J2704

== ENCOUNTER → 2021-04-05 | Outpatient (CLI) | payer BC ==
[2021-04-05 11:29] LABS: HGB 15.2 g/dL (13.0-17.0); MCH 30.5 pg (27.0-32.0); MCHC 33.8 g/dL (32.0-37.0); MCV 90.4 fL (80.0-97.0); Platelet Count 336 X 10*3/uL (140-440); RBC 4.98 X 10*6/uL (4.40-5.60); RDW 12.4 % (11.5-14.5); WBC 6.23 X 10*3/uL (4.50-10.00)
[2021-04-05 12:22] LABS: African American GFR (CKD) 105.7 (60.0-200.0); Albumin 4.8 g/dL (3.80-4.90); Albumin/Globulin Ratio 1.78 (1.60-3.17); Anion Gap 8.3 mmol/L (4.00-12.00); BUN/Creat Ratio 18.89 Ratio (12.00-20.00); Calcium 9.7 mg/dL (8.7-10.3); Carbon Dioxide 25.7 mmol/L (21.6-31.8); Globulin 2.7 g/dL (1.6-3.3); Non-African American GFR(CKD) 91.2 (60.0-200.0); Potassium 4.3 mmol/L (3.5-5.5); Total Bilirubin 0.9 mg/dL (0.3-1.2); Total Protein 7.5 g/dL (6.2-8.2)
== END | disposition home or self-care (01) ==
LOC: LABWHC1 07:34
PROVIDERS: ATTEND Surgery Plastic and Reconstructive Surgery
DX: Z01.812 Encounter for preprocedural laboratory examination (principal)
CPT/HCPCS: 36415; 80053; 85027

== ENCOUNTER 2021-04-11 09:18 | Inpatient (IN) | payer BC ==
--- NOTE | 2021-04-11 07:57 | P.GSHP ---
History of Present Illness H&P Date: 04/11/21 CHIEF COMPLAINT: History of sigmoid diverticulitis HISTORY OF PRESENT ILLNESS: The patient is a 46-year-old male with recurrent sigmoid diverticulitis. Reports intermittent left lower quadrant abdominal pain. Last hospitalization was in 3 months ago. He also has history of renal for cancer. He completed a colonoscopy which excluded underlying neoplasm. Now he presents for sigmoid colon resection. PAST MEDICAL HISTORY: Please see list. PAST SURGICAL HISTORY: Please see list. MEDICATIONS: Please see list. ALLERGIES: Please see list. SOCIAL HISTORY: No illicit drug use FAMILY HISTORY: No reports of Crohn disease or ulcerative colitis. REVIEW OF ORGAN SYSTEMS: CONSTITUTIONAL: Denies any fever or chills. Obesity with BMI 30.9. HEENT: Denies any trouble with vision or nosebleeds. No difficulty swallowing. LYMPHATIC: The patient denies any lumps and bumps around the neck. ENDOCRINE: Denies any thyroid disorders. Denies blood sugar glucose intolerance. RESPIRATORY: Denies pneumonia. Denies any troubles with breathing or dyspnea on exertion. CARDIOVASCULAR: Denies any chest pain, palpitations, or recent heart attacks. Has hypertensive heart disease. GASTROINTESTINAL: Has chronic diverticulitis. Recent perforated diverticulitis with recurrence. GENITOURINARY: Renal cell cancer MUSCULOSKELETAL: Has back pain, stiffness, joint arthritis. NEUROLOGIC: Denies any numbness or tingling along the distal extremities. No seizure disorders or headaches. PSYCHIATRIC: Denies depression or suidical ideation. HEMATOLOGIC: Denies any abnormal bleeding or bruising. PHYSICAL EXAM: VITAL SIGNS: Stable GENERAL: Well-developed pleasant in no acute distress. HEENT: No scleral icterus. Extraocular movements grossly intact. Moist buccal mucosa. NECK: Supple without lymphadenopathy. CHEST: Unlabored respirations. Equal bilateral excursions. CARDIOVASCULAR: Regular rate and rhythm. Distal 2+ pulses. ABDOMEN: Soft, nontender, nondistended. MUSCULOSKELETAL: No clubbing, cyanosis, or edema. NERUO: Cranial nerves 2-12 grossly intact. PSYCH: Alert and oriented to person place and time. ASSESSMENT: 1. History of perforated diverticulitis 2. Renal cell cancer 3. Hypertensive heart disease 4. Obesity due to excess calories, BMI 30.9 PLAN: 1. Benefits and risks of surgical robotic sigmoid resection was reviewed in detail. Robotic-assisted approach was also described. 2. Enhanced colon recovery program. 3. DVT prophylaxis. 4. Antibiotic prophylaxis. 5. Inpatient hospitalization greater than 2 nights. 6. Patient is elevated risk for complications due to recent diverticulitis including renal cell cancer Past Medical History Past Medical History: Hypertension Additional Past Medical History / Comment(s): Diverticulitis.rt renal CA,lt adrenal CA History of Any Multi-Drug Resistant Organisms: None Reported Past Surgical History: No Surgical Hx Reported Additional Past Surgical History / Comment(s): SINUS SURG, rt partial nephrectomy,left adrenalectomy Past Anesthesia/Blood Transfusion Reactions: Motion Sickness, Postoperative Nausea & Vomiting (PONV) Additional Past Anesthesia/Blood Transfusion Reaction / Comment(s): no hx blood transfusion Smoking Status: Former smoker - Past Family History Mother Family Medical History: No Reported History Medications and Allergies Home Medications Medication Instructions Recorded Confirmed Type Benazepril/Hydrochlorothiazide 1 tab PO QAM 03/16/15 04/05/21 History [Lotensin Hct 20-12.5 mg Tablet] amLODIPine [Norvasc] 10 mg PO QAM 02/03/21 04/05/21 History Fexofenadine HCl [Erinn Allergy] 180 mg PO DAILY 03/18/21 04/05/21 History Zinc 50 mg PO DAILY 03/18/21 04/05/21 History Allergies Allergy/AdvReac Type Severity Reaction Status Date / Time No Known Allergies Allergy Verified 04/05/21 09:34
[~2021-04-11 09:18] MED LIST changes: +ACETAMINOPHEN TAB 500 MG TAB PO PRN; +ALVIMOPAN 12 MG CAPSULE PO PRN; +Antibiotics per Pharmacy 1 EACH MISC MISCELLANE PRN; +DEXAMETHASONE SOD PHOSPHATE 4 MG/ML 1 ML VIAL IV ONE; +GABAPENTIN 300 MG CAP PO PRN; +HEPARIN SODIUM,PORCINE/PF 5,000 UNIT/0.5 ML SYRINGE SQ PRN; -LACTATED RINGERS 1,000 ML IV SCH; +MELOXICAM 7.5 MG TAB PO PRN; +MIDAZOLAM 2 MG/2 ML VIAL IV PRN; +ONDANSETRON 4 MG/2 ML VIAL IVP ONE; +TAMSULOSIN 0.4 MG CAP.ER.24H PO PRN; +metroNIDAZOLE-NS PMX 500 MG in SALINE 1 100ML.BAG IVPB PRN
[2021-04-11] MEDS: LACTATED RINGERS 1,000 ML IV SCH ×2 (10:19→12:15)
[2021-04-11 10:43] LABS: Basophils % (A) 1 %; Eosinophils # (A) 0.2 k/uL (0-0.7); Eosinophils % (A) 3 %; HGB 16.1 gm/dL (13.0-17.5); Lymphocytes # (A) 2.2 k/uL (1.0-4.8); Lymphocytes % (A) 31 %; MCH 31.6 pg (25.0-35.0); MCHC 35.8 g/dL (31.0-37.0); MCV 88.2 fL (80.0-100.0); Mean Platelet Volume 8.1; Monocytes # (A) 0.6 k/uL (0-1.0); Monocytes % (A) 9 %; Neutrophils % (A) 56 %; Platelet Count 286 k/uL (150-450); RDW 12.3 % (11.5-15.5); WBC 7.2 k/uL (3.8-10.6)
[2021-04-11] MEDS ORDERED: MIDAZOLAM 2 MG/2 ML VIAL IVP ONE (10:44)
[2021-04-11] MEDS ORDERED: fentaNYL (PF) 50 MCG/ML 2 ML AMP IVP ONE (10:44)
[2021-04-11 10:54] LABS: Anion Gap 11 mmol/L; Blood Urea Nitrogen 11 mg/dL (9-20); Carbon Dioxide 23 mmol/L (22-30); Chloride 104 mmol/L (98-107); Glucose 86 mg/dL (74-99); Sodium 138 mmol/L (137-145)
[2021-04-11 10:55] LABS: ALT 35 U/L (4-49); African American GFR (CKD) >90 (>60 ml/min/1.73 sqM); Calcium 9.9 mg/dL (8.4-10.2); Non-African American GFR(CKD) >90 (>60 ml/min/1.73 sqM); Total Bilirubin 0.7 mg/dL (0.2-1.3)
--- NOTE | 2021-04-11 10:57 | P.ANPRN ---
Procedure Note - Anesthesia - Nerve Block Performed Bilateral Erector Spinae Single Time Out Performed: Yes Date of Procedure: 04/11/21 Procedure Start Time: 10:43 Procedure Stop Time: 10:55 Location of Patient: PreOp Indication: Requested by Surgeon Specifically requested for management of pain by DrHannah: Rosalia Arriaga Sedation Type: Sedate with meaningful contact maintained Preparation: Sterile Prep Position: Prone Needle Types: Pajunk Needle Gauge: 21 Ultrasound used to visualize needle placement: Yes Ultrasound used to observe medication spread: Yes Injectate: 0.5% Ropivacaine (see comment for volume) (15 ml plus 0.9% NS 15 ml per side) Blood Aspirated: No Pain Paresthesia on Injection Noted: No Resistance on Injection: Normal Image Stored and Saved: Yes Events: Uneventful and Well Tolerated
[2021-04-11 11:01] LABS: AST 49 U/L (17-59); Albumin 4.9 g/dL (3.5-5.0); Alkaline Phosphatase 50 U/L (38-126); Potassium 4.6 mmol/L (3.5-5.1); Total Protein 7.9 g/dL (6.3-8.2)
[2021-04-11] MEDS ORDERED: MIDAZOLAM 2 MG/2 ML VIAL ONE (12:24)
[2021-04-11] MEDS ORDERED: ROCURONIUM 10 MG/ML (5 ML VIAL) IV ONE (12:24)
[2021-04-11] MEDS ORDERED: SUCCINYLCHOLINE CHLORIDE 100 MG/5 ML SYR IV ONE (12:24)
[2021-04-11] MEDS ORDERED: GLYCOPYRROLATE 0.2 MG/ML 2 ML VIAL ONE (12:24)
[2021-04-11] MEDS ORDERED: NEOSTIGMINE 1 MG/ML 10 ML VIAL ONE (12:24)
[2021-04-11] MEDS ORDERED: PROPOFOL 10 MG/ML 20 ML VIAL IV ONE (12:24)
[2021-04-11] MEDS ORDERED: LIDOCAINE 1% INJ 10MG/ML (20 ML MDV) ONE (12:24)
[2021-04-11] MEDS ORDERED: ROPIVACAINE 5 MG/ML 30 ML VIAL ONE (12:24)
[2021-04-11] MEDS ORDERED: fentaNYL (PF) 50 MCG/ML 2 ML AMP ONE (12:24)
[2021-04-11] MEDS ORDERED: BUPIVACAINE-EPI 0.5%-1:200,000 10 ML VIAL SQ ONE (13:30)
[2021-04-11] MEDS ORDERED: LACTATED RINGERS 1,000 ML IV ONE ×3 (13:49→17:09)
[2021-04-11] MEDS ORDERED: BENZOCAINE/MENTHOL LOZENG 1 EACH LOZENGE MUCOUS MEM PRN (17:21)
[2021-04-11] MEDS ORDERED: METOCLOPRAMIDE 5 MG/ML 2 ML VIAL IVP PRN (17:21)
[2021-04-11] MEDS ORDERED: SODIUM CHLORIDE 0.9% 1,000 ML IV ONE (17:24)
--- NOTE | 2021-04-11 17:37 | P.OP ---
Date of Procedure: 04/11/21 Description of Procedure: SURGEON: HOUSTON PEREZ MD PREOPERATIVE DIAGNOSES: 1. Recurrent sigmoid diverticulitis 2. History of renal cell cancer status post nephrectomy 3. Hypertensive heart disease with cardiomyopathy 4. History of adrenal cancer POSTOPERATIVE DIAGNOSES: 1. Complicated sigmoid diverticulitis with abdominal wall fistula and pelvic abscess 2. History of renal cell cancer status post nephrectomy 3. Hypertensive heart disease with cardiomyopathy 4. History of adrenal cancer 5. 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 Rectal adenoma OPERATION: 1. Robotic-assisted daVinci Xi laparoscopic with sigmoid colectomy/low anterior resection using 29mm EEA Ethicon powered stapler 2. Robotic-assisted daVinci Xi laparoscopic lysis of adhesions over 1.5 hours 3. Drainage of intrapelvic diverticular abscess, left pelvis 2 cm 4. Takedown of colonic fistula to abdominal wall/left pelvis 5. Intraoperative colonoscopy for flexible sigmoidoscopy Anesthesia: GETA, local, regional Estimated Blood Loss (ml): 20 Pathology: other (Sigmoid colon, anastomosis) Condition: stable Disposition: floor COMPLICATIONS: None. Operative Findings: 1. Contained left pelvic abscess from complicated diverticulitis, 2 cm drain 2. Complicated sigmoid diverticulitis with fistula to left abdominal wall resected 3. Rectal adenoma identified via colonoscopy 4. Intense phlegmon of left pelvis with extensive lysis of adhesions over 1.5 hours performed INDICATIONS: The patient is a 61-year-old male with recurrent sigmoid diverticulitis. He has recent history of renal cell large renal cell cancer status post resection. Surgical intervention was described. Benefits and risks, including infection, bowel injury, ureteral injury, colostomy creation and possibility for additional surgery was discussed at length. Informed consent was obtained. All questions of the patient and family were answered. DESCRIPTION: Earlier the patient had undergone a bowel prep using the enhanced colon recovery program. The patient was transferred to the operating room onto a split leg table and repositioned to modified lithotomy following intubation. A Bhagat catheter was placed. The abdomen was then prepped and draped in standard sterile fashion as Ioban was placed along the abdomen to minimize any contamination of skin floor. After a timeout protocol was performed, attention was then brought to the left upper quadrant whereby a 0 degree 5 mm laparoscopic trocar entry was performed. The abdominal cavity was entered and insufflated to 15 mmHg pressure, which was tolerated well. Diagnostic laparoscopy confirmed severe adhesions omentum to abdominal wall involving the right upper quadrant, midline, epigastrium. Next trocars were placed 20 cm superior from the pelvis. A 12-mm trocar was placed along the right lateral abdominal wall. A 8 mm port was placed along the right upper quadrant. Ports were placed 10 cm apart from each other including 15-20 cm away from the target anatomy of the left pelvis. An 8-mm port was was placed along the left upper quadrant. The stapler 12-mm port was arranged along the left lateral abdominal wall. The patient was then placed in Trendelenburg position, at least 21. The robotic da Clarisa XI system was primed. The robot was docked from the right side of the patient. Using atraumatic graspers and vessel sealer, the robotic system was docked and primed as described. Instruments were interchanged by the construction assistant including needle otr company truck driver, clip obstetrician gynecologist, hook cautery, robotic stapler and vessel sealer. The robot stapler was prepared along the right lateral abdominal wall. Initial attention was brought to lysis of adhesions involving epigastrium more omental adhesions from prior nephrectomy was identified and lysed using vessel sealer. Next, attention was brought to sigmoid colon. The sigmoid colon was densely adherent to the left pelvis requiring extensive lysis of adhesions over 1.5 hours which features of sigmoid colon fistula to the left abdominal wall as well as 2 cm intrapelvic abscess also drained. A 60 mm black staple load was used to divide the colocutaneous fistula to the abdominal wall. The sigmoid colon was released from surrounding tissue. The sigmoid mesentery was mobilized using a vessel sealer. Using robot stapler 60 mm black loads, the descending colon was divided. Mobilization of the colon was performed to the pelvic brim along the sacral promontory. The mesentery of the sigmoid colon was mobilized towards the descending colon using a vessel sealer. Next, the top of the rectum was divided using robotic stapler 60 mm black loads. The rest of the sigmoid colon mesentery was mobilized using vessel sealer. Additionally, the sigmoid colon was mobilized onto the colon to minimize injury to the ureters. I went to the foot of the bed for selection of a sizer. A colorectal colon anastomosis with an EEA 29-mm was selected after using a sizer along the rectum. For the proximal sigmoid colon, a 29-mm anvil was placed after creating a colotomy then closed using a stapler at the distal end. The robot arms were temporarily undocked. A stapler was entered along the rectum and mated to the anvil for 1 minute. The anastomosis was created. The donuts were thick on the rectum side and then on the colon side. I then performed a bedside flexible sigmoidoscopy using colonoscope where no leaks or defects were confirmed as the construction assistant placed normal saline along the pelvis. A rectal adenoma 1 cm was identified however not resected as snare was not available. I re-scrubbed into the case. Irrigation fluid was suctioned from the abdomen. The robot was undocked. All needles were removed from the abdominal cavity. Via the left lateral 12-mm trocar site, the resected colon was retrieved using 15 mm Endo Catch bag after widening the skin incision to 4-cm. The fascial defect was oversewn using 0 Vicryl and a Jameson Edwards. All incisions were cleansed using dilute normal saline and hydrogen peroxide mixture. Next all pneumoperitoneum was evacuated from the abdominal cavity. The 8-mm trocar sites were reapproximated using 4-0 Monocryl in an interrupted subcuticular fashion. Local anesthetic was infiltrated to all wounds for postop analgesia. All incisions were also cleansed with diluted hydrogen peroxide. An Optifoam surgical dressing was placed over the colon extraction site. Exofin was applied to the rest of the skin incisions. The patient was extubated successfully. The patient was transferred to the postanesthesia care unit in stable condition.
[2021-04-11] MEDS ORDERED: HYDROmorphone 0.5 MG/0.5 ML SYRINGE IVP ONE (17:45)
[2021-04-11] MEDS: KETOROLAC 15 MG/ML 1 ML VIAL IVP SCH ×2 (18:11→23:09)
[2021-04-11] MEDS: ONDANSETRON 4 MG/2 ML VIAL IVP SCH ×2 (19:51→23:12)
[2021-04-11] MEDS: SIMETHICONE 40 MG/0.6 ML DROPS 2,000 MG/30 ML BOTTLE PO SCH ×2 (20:50→21:03)
[2021-04-11] MEDS: HEPARIN SODIUM,PORCINE/PF 5,000 UNIT/0.5 ML SYRINGE SQ SCH (20:50)
[2021-04-11] MEDS: SODIUM CHLORIDE 0.9% 1,000 ML IV SCH (20:57)
[2021-04-12] MEDS: SODIUM CHLORIDE 0.9% 1,000 ML IV SCH ×4 (03:00→21:36)
[2021-04-12] MEDS: KETOROLAC 15 MG/ML 1 ML VIAL IVP SCH ×3 (05:04→17:52)
[2021-04-12] MEDS: ONDANSETRON 4 MG/2 ML VIAL IVP SCH ×4 (05:07→17:47)
[2021-04-12 05:23] LABS: Basophils % (A) 0 %; Eosinophils # (A) 0.1 k/uL (0-0.7); Eosinophils % (A) 1 %; HCT 39.6 % (39.0-53.0); HGB 13.7 gm/dL (13.0-17.5); Lymphocytes # (A) 1.8 k/uL (1.0-4.8); Lymphocytes % (A) 14 %; MCH 31.2 pg (25.0-35.0); MCHC 34.5 g/dL (31.0-37.0); MCV 90.3 fL (80.0-100.0); Mean Platelet Volume 7.9; Monocytes # (A) 0.8 k/uL (0-1.0); Monocytes % (A) 7 %; Neutrophils # (A) 9.9 k/uL (1.3-7.7); Neutrophils % (A) 78 %; Platelet Count 246 k/uL (150-450); RBC 4.39 m/uL (4.30-5.90); RDW 12.5 % (11.5-15.5); WBC 12.8 k/uL (3.8-10.6)
[2021-04-12] MEDS: HYDROmorphone 1 MG/ML 1 ML SYRINGE IVP PRN ×2 (05:56→16:10)
[2021-04-12] MEDS: LISINOPRIL-HCTZ 20-12.5 MG 1 EACH TAB PO SCH (07:55)
[2021-04-12] MEDS: LORATADINE 10 MG TAB PO SCH (07:55)
[2021-04-12] MEDS: HEPARIN SODIUM,PORCINE/PF 5,000 UNIT/0.5 ML SYRINGE SQ SCH ×2 (07:55→21:43)
[2021-04-12] MEDS: ALVIMOPAN 12 MG CAPSULE PO SCH ×2 (07:56→21:43)
[2021-04-12] MEDS: amLODIPine 10 MG TAB PO SCH (07:56)
[2021-04-12] MEDS: SIMETHICONE 40 MG/0.6 ML DROPS 2,000 MG/30 ML BOTTLE PO SCH ×4 (07:56→21:43)
[2021-04-12 09:30] LABS: Anion Gap 5.4 mmol/L (4.00-12.00); BUN/Creat Ratio 11.25 Ratio (12.00-20.00); Calcium 8.8 mg/dL (8.7-10.3); Carbon Dioxide 25.6 mmol/L (21.6-31.8); Non-African American GFR(CKD) 95.7 (60.0-200.0); Potassium 4.1 mmol/L (3.5-5.5)
[2021-04-12] MEDS: metroNIDAZOLE-NS PMX 500 MG in SALINE 1 100ML.BAG IVPB SCH ×2 (11:36→17:55)
--- NOTE | 2021-04-12 17:04 | P.PN ---
Subjective Progress Note Date: 04/12/21 Patient seen and evaluated. He is happy. We'll pain is well-controlled. No flatus or bowel movement. Patient encouraged to walk including chew gum to promote flatulence. Otherwise continue hospitalization. Objective - Vital Signs Vital signs: Vital Signs Temp 97.5 F L 04/12/21 11:45 Pulse 73 04/12/21 11:45 Resp 20 04/12/21 11:45 BP 147/76 04/12/21 11:45 Pulse Ox 90 L 04/12/21 11:45 Intake & Output 04/11/21 04/12/21 04/12/21 18:59 06:59 18:59 Intake Total 4450 Output Total 730 1860 Balance 3720 -1860 Weight 91.8 kg Intake: IV 4450 Output: Urine 710 1860 Estimated Blood Loss 20 Other: Voiding Method Indwelling Catheter - Labs CBC & Chem 7: 04/12/21 05:11 04/12/21 05:11 Labs: Abnormal Lab Results - Last 24 Hours (Table) 04/12/21 04/12/21 Range/Units 05:11 05:11 WBC 12.8 H (3.8-10.6) k/uL Neutrophils # 9.9 H (1.3-7.7) k/uL BUN/Creatinine Ratio 11.25 L (12.00-20.00) Ratio Glucose 118 H (70-110) mg/dL
[2021-04-13] MEDS: metroNIDAZOLE-NS PMX 500 MG in SALINE 1 100ML.BAG IVPB SCH ×3 (00:14→10:59)
[2021-04-13] MEDS: KETOROLAC 15 MG/ML 1 ML VIAL IVP SCH ×3 (00:16→10:59)
[2021-04-13] MEDS: ONDANSETRON 4 MG/2 ML VIAL IVP SCH ×3 (00:19→11:00)
[2021-04-13] MEDS: SODIUM CHLORIDE 0.9% 1,000 ML IV SCH (06:11)
[2021-04-13] MEDS: HEPARIN SODIUM,PORCINE/PF 5,000 UNIT/0.5 ML SYRINGE SQ SCH (08:30)
[2021-04-13] MEDS: amLODIPine 10 MG TAB PO SCH (08:31)
[2021-04-13] MEDS: LORATADINE 10 MG TAB PO SCH (08:31)
[2021-04-13] MEDS: LISINOPRIL-HCTZ 20-12.5 MG 1 EACH TAB PO SCH (08:31)
[2021-04-13] MEDS: SIMETHICONE 40 MG/0.6 ML DROPS 2,000 MG/30 ML BOTTLE PO SCH ×2 (08:31→11:01)
[2021-04-13] MEDS: ALVIMOPAN 12 MG CAPSULE PO SCH (08:31)
[2021-04-13] MEDS: LACTATED RINGERS 1,000 ML IV SCH (10:38)
--- NOTE | 2021-04-13 11:59 | P.PN ---
Subjective Progress Note Date: 04/13/21 CHIEF COMPLAINT: Diverticulitis with abscess and fistula HISTORY OF PRESENT ILLNESS: The patient is a 61-year-old male status post low anterior resection 04/11. He is passing flatus. Pain is controlled. He is tolerating liquid diet. ROS: No reports of nausea and vomiting. No bowel movements. No fevers or chills. No new chest pain. No productive sputum PHYSICAL EXAM: VITAL SIGNS: Reviewed CONSTITUTIONAL: Well developed and in no acute distress. EYES: Conjuctivae without sclera icterus. Extraocular movements grossly intact. HEAD, EARS, NOSE, THROAT: Moist buccal mucosa. Head is atraumatic, normocephalic. Hears conversational speech. No nasal drainage. NECK: Supple. No thyroidomegaly. RESPIRATORY: Non-labored respirations and equal bilateral excursions. CARDIOVASCULAR: Palpable 2+ radial pulses. ABDOMEN: Incision intact MUSCULOSKELETAL: No gross deformity of the lower extremities noted. No clubbing. No cyanosis. SKIN: Good skin turgor. Well perfused. NEUROLOGIC: Cranial nerves II through XII grossly intact. No focal or lateralizing signs. PSYCH: Appropriate affect. Alert and oriented to person, place and time. ASSESSMENT: 1. Diverticulitis PLAN: 1. Advance to low fiber diet 2. Discharge diet diverticulitis without seeds described. 3. Discharge once tolerating low fiber diet. Objective - Vital Signs Vital signs: Vital Signs Temp 98.6 F 04/13/21 05:00 Pulse 62 04/13/21 05:00 Resp 20 04/13/21 05:00 BP 147/78 04/13/21 05:00 Pulse Ox 95 04/13/21 05:00 Intake & Output 04/12/21 04/13/21 04/13/21 18:59 06:59 18:59 Intake Total 500 Balance 500 Intake: Oral 500 Other: Voiding Method Toilet - Labs CBC & Chem 7: 04/12/21 05:11 04/12/21 05:11
[2021-04-13 12:24] VITALS: BP 123/76; PULSE 57; RESP 18; TEMP 98.9
[2021-04-13 13:14] VITALS: BMI 29.9
--- NOTE | 2021-04-15 17:57 | P.DS ---
Providers Date of admission: 04/11/21 09:18 Expected date of discharge: 04/13/21 Attending physician: Rosalia Arriaga Consults: 04/11/21 07:58 Consult Physician Routine Consulting Provider: [facility] Consult Reason/Comments: Regional block Do you want consulting provider notified?: Yes Primary care physician: Esteban Martinez - Discharge Diagnosis(es) (1) Acute diverticulitis Status: Acute (2) Adrenal tumor Status: Acute (3) Left lower quadrant abdominal pain Status: Acute (4) Renal cell cancer Status: Acute Hospital Course: CHIEF COMPLAINT: Diverticulitis with abscess and fistula HISTORY OF PRESENT ILLNESS: The patient is a 61-year-old male status post low anterior resection 04/11. He is passing flatus. Pain is controlled. He is tolerating liquid diet. ROS: No reports of nausea and vomiting. No bowel movements. No fevers or chills. No new chest pain. No productive sputum PHYSICAL EXAM: VITAL SIGNS: Reviewed CONSTITUTIONAL: Well developed and in no acute distress. EYES: Conjuctivae without sclera icterus. Extraocular movements grossly intact. HEAD, EARS, NOSE, THROAT: Moist buccal mucosa. Head is atraumatic, normocephalic. Hears conversational speech. No nasal drainage. NECK: Supple. No thyroidomegaly. RESPIRATORY: Non-labored respirations and equal bilateral excursions. CARDIOVASCULAR: Palpable 2+ radial pulses. ABDOMEN: Incision intact MUSCULOSKELETAL: No gross deformity of the lower extremities noted. No clubbing. No cyanosis. SKIN: Good skin turgor. Well perfused. NEUROLOGIC: Cranial nerves II through XII grossly intact. No focal or lateralizing signs. PSYCH: Appropriate affect. Alert and oriented to person, place and time. ASSESSMENT: 1. Diverticulitis PLAN: 1. Advance to low fiber diet 2. Discharge diet diverticulitis without seeds described. 3. Discharge once tolerating low fiber diet. Patient Condition at Discharge: Good Plan - Discharge Summary Discharge Rx Participant: No New Discharge Prescriptions: New Ciprofloxacin HCl 500 mg PO BID #10 tab Acetaminophen Tab [Tylenol Tab] 1,000 mg PO Q6HR PRN #30 tablet PRN Reason: Pain metroNIDAZOLE [Flagyl] 500 mg PO TID #15 tab Simethicone [Gas-X] 125 mg PO AC-TID PRN #20 capsule PRN Reason: Pain Continue Benazepril/Hydrochlorothiazide [Lotensin Hct 20-12.5 mg Tablet] 1 tab PO QAM amLODIPine [Norvasc] 10 mg PO QAM Fexofenadine HCl [Erinn Allergy] 180 mg PO DAILY Zinc 50 mg PO DAILY Discharge Medication List Benazepril/Hydrochlorothiazide [Lotensin Hct 20-12.5 mg Tablet] 1 tab PO QAM 03/16/15 [History] amLODIPine [Norvasc] 10 mg PO QAM 02/03/21 [History] Fexofenadine HCl [Erinn Allergy] 180 mg PO DAILY 03/18/21 [History] Zinc 50 mg PO DAILY 03/18/21 [History] Acetaminophen Tab [Tylenol Tab] 1,000 mg PO Q6HR PRN #30 tablet 04/13/21 [Rx] Ciprofloxacin HCl 500 mg PO BID #10 tab 04/13/21 [Rx] Simethicone [Gas-X] 125 mg PO AC-TID PRN #20 capsule 04/13/21 [Rx] metroNIDAZOLE [Flagyl] 500 mg PO TID #15 tab 04/13/21 [Rx] Follow up Appointment(s)/Referral(s): Rosalia Arriaga MD [STAFF PHYSICIAN] - 04/18/21 Patient Instructions/Handouts: Ciprofloxacin (By mouth), Acetaminophen (By mouth), Simethicone (By mouth), Metronidazole (By mouth), Diverticulitis (DC), Diverticulitis Diet (DC) Activity/Diet/Wound Care/Special Instructions: NO SEEDS. Low fiber diet. No lifting over 4 pounds in 4 weeksMay 12March shower No soaking in bath tubs for 2 weeks, April 25 Please notify your surgeon if you develop nausea and vomiting including new onset of abdominal pain. Please ambulate at all times. Use Simethicone, Gas-X, ibuprofen, Aleve Tylenol scheduled for the next 24-48 hours for best pain relief. Use ice along incisions for the today to prevent swelling. Discharge Disposition: HOME SELF-CARE
== END 2021-04-13 13:00 | disposition home or self-care (01) | DRG 329 ==
LOC: 2ORMAIN 09:18 → 5NMEDONC 17:27
PROVIDERS: ADMIT Surgery Plastic and Reconstructive Surgery; ATTEND Surgery Plastic and Reconstructive Surgery
PROC: 0DNN4ZZ Release Sigmoid Colon, Percutaneous Endoscopic Approach (ICD-10-PCS; 2021-04-11)
PROC: 0W9J4ZZ Drainage of Pelvic Cavity, Percutaneous Endoscopic Approach (ICD-10-PCS; 2021-04-11)
PROC: 8E0W4CZ Robotic Assisted Procedure of Trunk Region, Percutaneous Endoscopic Approach (ICD-10-PCS; 2021-04-11)
PROC: 0DJD8ZZ Inspection of Lower Intestinal Tract, Via Natural or Artificial Opening Endoscopic (ICD-10-PCS; 2021-04-11)
PROC: 0DTN0ZZ Resection of Sigmoid Colon, Open Approach (ICD-10-PCS; principal; 2021-04-11 10:55)
DX: K57.20 Diverticulitis of large intestine with perforation and abscess without bleeding (principal); K65.1 Peritoneal abscess; I42.9 Cardiomyopathy, unspecified; K63.2 Fistula of intestine; C64.9 Malignant neoplasm of unspecified kidney, except renal pelvis; Z85.528 Personal history of other malignant neoplasm of kidney; Z90.5 Acquired absence of kidney; I11.9 Hypertensive heart disease without heart failure; Z85.858 Personal history of malignant neoplasm of other endocrine glands; D12.8 Benign neoplasm of rectum; E66.09 Other obesity due to excess calories; Z20.822 Contact with and (suspected) exposure to COVID-19; Z68.30 Body mass index [BMI] 30.0-30.9, adult; D49.7 Neoplasm of unspecified behavior of endocrine glands and other parts of nervous system; Z87.891 Personal history of nicotine dependence; K66.0 Peritoneal adhesions (postprocedural) (postinfection)
CPT/HCPCS: 64999; 80048; 80053; 85025; 86850; 86900; 86901; 87635; 88307

== ENCOUNTER → 2021-04-18 | Outpatient (CLI) | payer BC ==
[2021-04-18 19:54] LABS: HCT 46.3 % (39.6-50.0); HGB 15.6 g/dL (13.0-17.0); MCH 30.1 pg (27.0-32.0); MCHC 33.7 g/dL (32.0-37.0); MCV 89.2 fL (80.0-97.0); Mean Platelet Volume 10.9 fL (9.5-12.2); Platelet Count 361 X 10*3/uL (140-440); RBC 5.19 X 10*6/uL (4.40-5.60); RDW 12.7 % (11.5-14.5); WBC 13.21 X 10*3/uL (4.50-10.00)
[2021-04-19 02:23] LABS: Albumin 4.6 g/dL (3.80-4.90); Albumin/Globulin Ratio 1.7 (1.60-3.17); Anion Gap 15.5 mmol/L (4.00-12.00); BUN/Creat Ratio 22.5 Ratio (12.00-20.00); Carbon Dioxide 23.5 mmol/L (21.6-31.8); Globulin 2.7 g/dL (1.6-3.3); Non-African American GFR(CKD) 95.7 (60.0-200.0); Potassium 4.1 mmol/L (3.5-5.5); Total Bilirubin 0.8 mg/dL (0.2-1.2); Total Protein 7.3 g/dL (6.2-8.2)
== END | disposition home or self-care (01) ==
LOC: LABWHC1 12:33
PROVIDERS: ATTEND Surgery Plastic and Reconstructive Surgery
DX: K57.32 Diverticulitis of large intestine without perforation or abscess without bleeding (principal)
CPT/HCPCS: 36415; 80053; 85027

== ENCOUNTER → 2021-05-02 | Outpatient (CLI) | payer BC ==
--- NOTE | 2021-05-02 09:14 | US ---
EXAMINATION TYPE: US gallbladder DATE OF EXAM: 05/02/2021 COMPARISON: CT for a 21 CLINICAL HISTORY: K80.10. Patient has LUQ pain at incisional scar from Laparoscopy Sigmoid Colectomy 3 weeks ago. Patient denies RUQ pain EXAM MEASUREMENTS: Liver Length: 16.2 cm Gallbladder Wall: 0.2 cm CBD: 0.5 cm Right Kidney: 9.1 x 6.7 x 4.8 cm Pancreas: wnl, tail obscured by overlying bowel gas Liver: mildly attenuated posteriorly Gallbladder: gallstone = 1.7 x 1.1 x 0.6cm noted mid to fundal lumen in supine and LLD Evidence for sonographic Cobb's sign: no CBD: wnl Right Kidney: history of partial right nephrectomy; superolateral pole mixed lesion = 1.9 x 1.6 x 1. 5cm is noted. This appears to correspond to the CT findings. LUQ area scanned appears wnl at patient's post area of pain. IMPRESSION: 1. Cholelithiasis. 2. Mass near the right kidney appears nonspecific. Monitoring either ultrasound or CT can be performe d.
== END | disposition home or self-care (01) ==
LOC: RADUSWWP 07:36
PROVIDERS: ATTEND Surgery Plastic and Reconstructive Surgery
DX: K80.20 Calculus of gallbladder without cholecystitis without obstruction (principal); N28.89 Other specified disorders of kidney and ureter
CPT/HCPCS: 76705

== ENCOUNTER → 2021-05-28 | Outpatient (CLI) | payer BC ==
[2021-05-28 09:59] LABS: African American GFR (CKD) >90 (>60 ml/min/1.73 sqM); Blood Urea Nitrogen 18 mg/dL (9-20); Non-African American GFR(CKD) >90 (>60 ml/min/1.73 sqM)
--- NOTE | 2021-05-28 12:33 | CT ---
EXAMINATION TYPE: CT ChestAbdPelvis w con DATE OF EXAM: 05/28/2021 COMPARISON: Prior CT January 22, [address] and [address] CTs. HISTORY: Renal cell cancer CT DLP: 1243.6 mGycm. Automated Exposure Control for Dose Reduction was Utilized. CONTRAST: CT scan of the thorax, abdomen and pelvis is performed with oral and with IV Contrast, patient inject ed with 100 mL of Isovue 300. FINDINGS: LUNGS: Mild linear scarring in the lingula. No suspicious nodules or masses. There is no pleural eff usion or pneumothorax seen. The tracheobronchial tree is patent. MEDIASTINUM: There are no greater than 1 cm hilar or mediastinal lymph nodes. No cardiomegaly or pe ricardial effusion is seen. LIVER/GB: Triangular shaped hyperdensity right hepatic lobe extends to surface becomes less prominent on delayed consistent with transient hepatic attenuation difference. PANCREAS: No significant abnormality is seen. SPLEEN: No significant abnormality is seen. ADRENALS: Slight thickening to reason left adrenal gland not significantly changed from January 22, 2021 CT. Stable 1.1 cm hyperdense nodule axial image [address] KIDNEYS: Focal defect posteriorly to lower pole level right kidney with some residual low dense tissu e axial image 73 unchanged from most recent CT. Symmetric cortical medullary uptake and excretion wit hout hydronephrosis seen bilaterally. There is 1.2 cm partially exophytic thin-walled cyst posteriorl y mid pole level left kidney series 5 image 30. BOWEL: Oral contrast reaches level of left colon. No suspicious small or large bowel dilatation. Sutu res at level of sigmoid colon in the left pelvis are now present. Small-sized hiatal hernia redemonst rated. Incidental normal contrast-filled appendix. GENITAL ORGANS: Mildly enlarged prostate. LYMPH NODES: No greater than 1cm abdominal or pelvic lymph nodes are appreciated. OSSEOUS STRUCTURES: Slight scoliotic curvature in the thoracic spine. OTHER: No significant additional abnormality is seen. IMPRESSION: Stable nodularity to both adrenal glands new from original 2018 study. Posttreatment jolley ge posteriorly mid to lower pole of the right kidney redemonstrated. No new or enlarging masses or l ymph nodes.
== END | disposition home or self-care (01) ==
LOC: RADCTMAIN 09:04
PROVIDERS: ATTEND Internal Medicine Hematology & Oncology
DX: E27.8 Other specified disorders of adrenal gland (principal); Z85.528 Personal history of other malignant neoplasm of kidney
CPT/HCPCS: 82565; 84520; 71260; 74177; 36415; Q9967

== ENCOUNTER 2021-06-10 10:21 | Day surgery (SDC) | payer BC ==
[2021-06-06 14:19] VITALS: BMI 29.5
--- NOTE | 2021-06-10 09:59 | P.GSHP ---
History of Present Illness H&P Date: 06/10/21 CHIEF COMPLAINT: Cholecystitis HISTORY OF PRESENT ILLNESS: The patient is a 61-year-old male who presents with history of epigastric including right upper quadrant abdominal pain. He underwent diagnostic studies for the gallbladder. Separately his clinical picture was consistent with cholecystitis. Now he presents for surgical intervention. PAST MEDICAL HISTORY: Please see list PAST SURGICAL HISTORY: Please see list MEDICATIONS: Please see list ALLERGIES: Denies. SOCIAL HISTORY: No illicit drug use or recent tobacco use FAMILY HISTORY: Pertinent for gallbladder disease REVIEW OF ORGAN SYSTEMS: CONSTITUTIONAL: No reports of fevers or chills. HEENT: Denies any troubles with the vision or hearing. PHYSICAL EXAM: VITAL SIGNS: Afebrile vital signs stable GENERAL: Well-developed pleasant male in no acute distress. HEENT: No scleral icterus. Extraocular movements grossly intact. Moist buccal mucosa. NECK: Supple without lymphadenopathy. CHEST: Unlabored respirations. Equal bilateral excursions. CARDIOVASCULAR: Regular rate regular rhythm rhythm. Distal 2+ pulses. ABDOMEN: Soft, nondistended. Tender along the epigastrium and right upper quadrant. MUSCULOSKELETAL: No clubbing, cyanosis, or edema. NEURO : No focal or lateralizing signs. Cranial nerves II-12 within normal limits. PSYCH: Alert and oriented to person, place and time. SKIN: Well perfused. Good skin turgor. ASSESSMENT: 1. Epigastric and right upper quadrant abdominal pain 2. Chronic cholecystitis PLAN: 1. Will need a robotic cholecystectomy possible open. Benefits and risks were described. 2. Heparin for DVT prophylaxis 5000 units. 3. Antibiotic prophylaxis. Past Medical History Past Medical History: Cancer, Hypertension, Osteoarthritis (OA) Additional Past Medical History / Comment(s): hx Diverticulitis. small hiatal hernia, gallstones, vitiligo, hx renal cancer. History of Any Multi-Drug Resistant Organisms: None Reported Past Surgical History: Bowel Resection Additional Past Surgical History / Comment(s): SINUS SURG, partial rt nephrectomy, left adrenal gland removed, colectomy 03/2021 Past Anesthesia/Blood Transfusion Reactions: Motion Sickness, Postoperative Nausea & Vomiting (PONV) Additional Past Anesthesia/Blood Transfusion Reaction / Comment(s): no hx blood transfusion Smoking Status: Former smoker - Past Family History Mother Family Medical History: No Reported History Medications and Allergies Home Medications Medication Instructions Recorded Confirmed Type Benazepril/Hydrochlorothiazide 1 tab PO QAM 03/16/15 06/06/21 History [Lotensin Hct 20-12.5 mg Tablet] amLODIPine [Norvasc] 10 mg PO QAM 02/03/21 06/06/21 History Fexofenadine HCl [Erinn Allergy] 180 mg PO DAILY 03/18/21 06/06/21 History Zinc 50 mg PO DAILY 03/18/21 06/06/21 History Allergies Allergy/AdvReac Type Severity Reaction Status Date / Time No Known Allergies Allergy Verified 06/06/21 14:09
[~2021-06-10 10:21] MED LIST changes: -ALVIMOPAN 12 MG CAPSULE PO PRN; -Antibiotics per Pharmacy 1 EACH MISC MISCELLANE PRN; +HYDROmorphone 0.5 MG/0.5 ML SYRINGE IVP PRN; +INDOCYANINE GREEN 25 MG VIAL IV PRN; -metroNIDAZOLE-NS PMX 500 MG in SALINE 1 100ML.BAG IVPB PRN
[2021-06-10] MEDS: LACTATED RINGERS 1,000 ML IV SCH ×2 (11:10→14:29)
[2021-06-10 11:14] LABS: Basophils # (A) 0.1 k/uL (0-0.2); Basophils % (A) 1 %; Eosinophils # (A) 0.3 k/uL (0-0.7); Eosinophils % (A) 3 %; HCT 48.5 % (39.0-53.0); HGB 16.1 gm/dL (13.0-17.5); Lymphocytes # (A) 3.2 k/uL (1.0-4.8); Lymphocytes % (A) 35 %; MCHC 33.1 g/dL (31.0-37.0); MCV 90.4 fL (80.0-100.0); Mean Platelet Volume 7.4; Monocytes # (A) 0.7 k/uL (0-1.0); Monocytes % (A) 7 %; Neutrophils # (A) 4.6 k/uL (1.3-7.7); Neutrophils % (A) 51 %; Platelet Count 271 k/uL (150-450); RBC 5.36 m/uL (4.30-5.90); RDW 13.6 % (11.5-15.5); WBC 9.1 k/uL (3.8-10.6)
[2021-06-10 11:34] LABS: ALT 31 U/L (4-49); AST 31 U/L (17-59); African American GFR (CKD) >90 (>60 ml/min/1.73 sqM); Albumin 4.7 g/dL (3.5-5.0); Alkaline Phosphatase 62 U/L (38-126); Anion Gap 9 mmol/L; Blood Urea Nitrogen 15 mg/dL (9-20); Carbon Dioxide 24 mmol/L (22-30); Chloride 106 mmol/L (98-107); Glucose 102 mg/dL (74-99); Non-African American GFR(CKD) >90 (>60 ml/min/1.73 sqM); Potassium 4.3 mmol/L (3.5-5.1); Sodium 139 mmol/L (137-145); Total Bilirubin 0.6 mg/dL (0.2-1.3); Total Protein 7.7 g/dL (6.3-8.2)
[2021-06-10] MEDS ORDERED: MIDAZOLAM 2 MG/2 ML VIAL ONE (12:32)
[2021-06-10] MEDS ORDERED: ROCURONIUM 10 MG/ML (5 ML VIAL) IV ONE (12:32)
[2021-06-10] MEDS ORDERED: NEOSTIGMINE 1 MG/ML 10 ML VIAL ONE (12:32)
[2021-06-10] MEDS ORDERED: fentaNYL (PF) 50 MCG/ML 2 ML AMP ONE (12:32)
[2021-06-10] MEDS ORDERED: PROPOFOL 10 MG/ML 20 ML VIAL IV ONE (12:32)
[2021-06-10] MEDS ORDERED: SUCCINYLCHOLINE CHLORIDE 100 MG/5 ML SYR IV ONE (12:32)
[2021-06-10] MEDS ORDERED: INDOCYANINE GREEN 25 MG VIAL IV ONE (12:32)
[2021-06-10] MEDS ORDERED: LIDOCAINE 1% INJ 10MG/ML (20 ML MDV) ONE (12:32)
[2021-06-10] MEDS ORDERED: GLYCOPYRROLATE 0.2 MG/ML 2 ML VIAL ONE (12:32)
[2021-06-10] MEDS ORDERED: BUPIVACAINE (PF) 0.25% 30 ML VIAL SQ ONE (13:06)
[2021-06-10 13:48] VITALS: TEMP 97.3
[2021-06-10 14:00] VITALS: RESP 16
--- NOTE | 2021-06-10 14:20 | P.OP ---
Date of Procedure: 06/10/21 Description of Procedure: SURGEON: ROSALIA ARRIAGA MD PREOPERATIVE DIAGNOSES: 1. Chronic cholecystitis with cholelithiasis 2. Hypertensive heart disease 3. History of diverticulitis 4. Obesity due to excess calories, BMI 30.4 POSTOPERATIVE DIAGNOSES: 1. Chronic cholecystitis with cholelithiasis 2. Hypertensive heart disease 3. History of diverticulitis 4. Obesity due to excess calories, BMI 30.4 5. Peritoneal adhesions, right upper quadrant OPERATION: 1. Robotic-assisted da Clarisa Xi laparoscopic lysis of adhesions 2. Robotic-assisted da Clarisa Xi laparoscopic cholecystectomy, multiport with FIREFLY ESTIMATED BLOOD LOSS: 5 mL. SPECIMENS REMOVED: Gallbladder. COMPLICATIONS: None. OPERATIVE FINDINGS: 1. Moderate scarring over body and infundibulum of the gallbladder with peritoneal adhesions, pericholecystic with features of chronic cholecystitis 2. Large 1 cm gallstones palpated. 3. Left upper quadrant peritoneal adhesions from prior surgery identified. INDICATIONS: The patient is a 61-year-old male who presents with symptomatic gallstones. Robotic assisted laparoscopic approach was described. Benefits and risks of the procedure including but not limited to bleeding, infection, injury to the biliary tree was described. Informed consent was obtained. DESCRIPTION OF PROCEDURE: Patient was brought to the operating room, placed in supine position. After general induction, the abdomen had been prepped and draped in standard sterile fashion. The robotic da Clarisa XI system was primed. After a timeout protocol was performed, the patient had been prepped and draped in standard sterile fashion. The patient was injected with indocyanine green. A 5 mm 0 degrees laparoscopic trocar entry was performed along the left upper quadrant. The abdomen insufflated to 15 mmHg pressure which was tolerated well. Diagnostic laparoscopy demonstrated no injury to bowel viscera or mesentery. The liver surface was unremarkable. Next, two 8 mm robotic ports were placed along the right upper abdomen. The camera 8-mm port was maintained along the e pigastrium. Another 8 mm port was placed along the left upper abdominal wall after exchanging the 5 mm port. Please note that the ports were placed at least 10 to 15 cm away from the target anatomy of the gallbladder. The robot was docked along the left lateral abdomen. The patient was repositioned in reverse Trendelenburg position. Using a grasper for arm 3, a grasper for arm 4, including hook cautery for arm 1, the robotic system was docked and primed as described. Instruments were interchanged by the emergency room physician assistant including hook cautery, Bovie cautery and clip appliers. I had sat at the console. The gallbladder was scarred with peritoneal adhesions. Lysis of adhesions was performed to free the gallbladder from the surrounding tissues. Next attention was brought to the infundibulum and cystic structures. The infundibulum and cystic duct were dissected free from surrounding tissues. The cystic duct was isolated. FIREFLY was used to identify the cystic artery and cystic structures. A critical view of safety was obtained. Large PLASTIC clips were used throughout the entire case. Using a clip votator machine operator, 2 clips were placed at the junction of the infundibulum and cystic duct. The cystic duct was divided between clips. Next, the cystic artery was similarly clipped and cauterized. Electro-Bovie cautery was used to remove the gallbladder from the hepatic fossa. Hemostasis was checked and found to be adequate. The robot was undocked. I re-scrubbed into the case. Using a 10 mm Endo Catch bag via the left upper quadrant incision, the specimen was removed from the abdominal cavity. All pneumoperitoneum instruments were evacuated from the abdominal cavity. The incisions were reapproximated using 4-0 Monocryl in an interrupted subcuticular fashion. Fascial defects were less than 8 mm in size. Please note along the trocar sites, local anesthetic was placed as a field block prior to insertion of all instruments. Liquid glue was applied to the skin. At the end of the procedure needle, sponge, and instrument count had been verified correct by the soldering technician. The patient was transferred to postanesthesia care unit in stable condition. Intraoperative films were shared with the patient's family. Plan - Discharge Summary Discharge Rx Participant: Yes New Discharge Prescriptions: New Ibuprofen [Motrin] 600 mg PO Q8HR PRN #30 tab PRN Reason: Pain Acetaminophen Tab [Tylenol Tab] 1,000 mg PO Q6HR PRN #30 tablet PRN Reason: Pain Simethicone [Gas-X] 125 mg PO AC-TID PRN #20 capsule PRN Reason: Pain Continue Benazepril/Hydrochlorothiazide [Lotensin Hct 20-12.5 mg Tablet] 1 tab PO QAM amLODIPine [Norvasc] 10 mg PO QAM Fexofenadine HCl [Erinn Allergy] 180 mg PO DAILY Zinc 50 mg PO DAILY Discharge Medication List Benazepril/Hydrochlorothiazide [Lotensin Hct 20-12.5 mg Tablet] 1 tab PO QAM 03/16/15 [History] amLODIPine [Norvasc] 10 mg PO QAM 02/03/21 [History] Fexofenadine HCl [Erinn Allergy] 180 mg PO DAILY 03/18/21 [History] Zinc 50 mg PO DAILY 03/18/21 [History] Acetaminophen Tab [Tylenol Tab] 1,000 mg PO Q6HR PRN #30 tablet 06/10/21 [Rx] Ibuprofen [Motrin] 600 mg PO Q8HR PRN #30 tab 06/10/21 [Rx] Simethicone [Gas-X] 125 mg PO AC-TID PRN #20 capsule 06/10/21 [Rx] Follow up Appointment(s)/Referral(s): Rosalia Arriaga MD [STAFF PHYSICIAN] - 06/18/21 1:15 pm Patient Instructions/Handouts: *[facility] - Managing Your Pain After Surgery Without Opioids, *[facility] - (Anesthesia) Discharge Instructions Outpatient Surgery, Low Fat Diet (DC), Laparoscopic Cholecystectomy (DC) Activity/Diet/Wound Care/Special Instructions: Recommend low-fat diet for the next 2 days. No lifting over 10 pounds in 2 weeks until Jun 24. May shower. No bath tub soaks for two weeks until Jun 24. Diet as tolerated. Use Tylenol, simethicone and ibuprofen or Aleve scheduled for the next 24-48 hours for best pain relief. Use ice along incisions for today to prevent swelling. Discharge Disposition: HOME SELF-CARE
[2021-06-10 15:02] VITALS: BP 158/82; PULSE 71
== END 2021-06-10 15:42 | disposition home or self-care (01) ==
LOC: OR 10:21
PROVIDERS: ATTEND Surgery Plastic and Reconstructive Surgery
DX: K80.10 Calculus of gallbladder with chronic cholecystitis without obstruction (principal); I11.9 Hypertensive heart disease without heart failure; K66.0 Peritoneal adhesions (postprocedural) (postinfection); E66.09 Other obesity due to excess calories; Z68.30 Body mass index [BMI] 30.0-30.9, adult; Z87.19 Personal history of other diseases of the digestive system; M19.90 Unspecified osteoarthritis, unspecified site; Z87.891 Personal history of nicotine dependence
CPT/HCPCS: 47563; 88304; 80053; 85025; J2250; J1100; J2710; J0690; J2405; J2001; J3010; J0330; J2704; J1170

== ENCOUNTER 2021-09-13 06:18 | Day surgery (SDC) | payer BC ==
[2021-09-11 11:35] VITALS: BMI 30.2
[~2021-09-13 06:18] MED LIST changes: -ACETAMINOPHEN TAB 500 MG TAB PO PRN; -GABAPENTIN 300 MG CAP PO PRN; -INDOCYANINE GREEN 25 MG VIAL IV PRN; +LACTATED RINGERS 1,000 ML IV SCH; -LIDOCAINE 1% (10MG/ML) FOR IV START INTRADERMA PRN; -MELOXICAM 7.5 MG TAB PO PRN; -MIDAZOLAM 2 MG/2 ML VIAL IV PRN; +Pre Op ABX Message 1 EACH MISC MISCELLANE ONE; -TAMSULOSIN 0.4 MG CAP.ER.24H PO PRN
[2021-09-13] MEDS ORDERED: LIDOCAINE 1% (10MG/ML) FOR IV START INTRADERMA ONE (06:59)
[2021-09-13] MEDS ORDERED: GLYCOPYRROLATE 0.2 MG/ML 2 ML VIAL ONE (07:35)
[2021-09-13] MEDS ORDERED: fentaNYL (PF) 50 MCG/ML 2 ML AMP ONE (07:35)
[2021-09-13] MEDS ORDERED: PROPOFOL 10 MG/ML 20 ML VIAL IV ONE (07:35)
[2021-09-13] MEDS ORDERED: ePHEDrine SULFATE/0.9% NACL/PF 50 MG/5 ML SYRINGE IV ONE (07:35)
[2021-09-13] MEDS ORDERED: SUCCINYLCHOLINE CHLORIDE 100 MG/5 ML SYR IV ONE (07:35)
[2021-09-13] MEDS ORDERED: MIDAZOLAM 2 MG/2 ML VIAL ONE (07:35)
--- NOTE | 2021-09-13 07:40 | P.GSHP ---
History of Present Illness H&P Date: 09/13/21 CHIEF COMPLAINT: Back mass HISTORY OF PRESENT ILLNESS: The patient is a 61 year-old male with mass along the upper back for over 2 years. He reports discomfort and increased growth. He presents today for surgical excision. PAST MEDICAL HISTORY: Please see list. PAST SURGICAL HISTORY: Please see list. MEDICATIONS: Please see list. ALLERGIES: Please see list. SOCIAL HISTORY: Please see list. FAMILY HISTORY: No reports of Crohn disease or ulcerative colitis. REVIEW OF ORGAN SYSTEMS: CONSTITUTIONAL: No reports of fevers or chills. GI: Denies any blood in stools or constipation. PHYSICAL EXAM: VITAL SIGNS: Stable Musculoskeletal: No clubbing cyanosis or edema SKIN: Upper back lesion 3 cm GENERAL: Well developed and in no acute distress. Pleasant. HEENT: No sclera icterus. Extraocular movements grossly intact. Moist buccal mucosa. Head is atraumatic, normocephalic. Hears conversational speech. No nasal drainage. NECK: Supple without lymphadenopathy. No JV distention. CHEST: Non-labored respirations and equal bilateral excursions. CARDIOVASCULAR: Regular rate and rhythm. Palpable 2+ radial pulses. ABDOMEN: Soft. Non-tender. Nondistended. NEUROLOGIC: No focal or lateralizing signs. PSYCH: Appropriate affect. Alert and oriented to person, place and time. ASSESSMENT: 1. Upper ack mass PLAN: 1. Will proceed of excision of subcutaneous tumor along the back. 2. DVT prophylaxis. 3. Antibiotic prophylaxis. 4. Time of recovery, at least one week. Past Medical History Past Medical History: Cancer, Hypertension, Osteoarthritis (OA) Additional Past Medical History / Comment(s): hx Diverticulitis, vitiligo, hx renal cancer. History of Any Multi-Drug Resistant Organisms: None Reported Past Surgical History: Bowel Resection, Cholecystectomy Additional Past Surgical History / Comment(s): SINUS SURG, partial rt nephrectomy, left adrenal gland removed, colectomy 03/2021 Past Anesthesia/Blood Transfusion Reactions: Motion Sickness, Postoperative Nausea & Vomiting (PONV) Additional Past Anesthesia/Blood Transfusion Reaction / Comment(s): no hx blood transfusion Smoking Status: Former smoker - Past Family History Mother Family Medical History: No Reported History Medications and Allergies Home Medications Medication Instructions Recorded Confirmed Type Benazepril/Hydrochlorothiazide 1 tab PO QAM 03/16/15 09/11/21 History [Lotensin Hct 20-12.5 mg Tablet] amLODIPine [Norvasc] 10 mg PO QAM 02/03/21 09/11/21 History Fexofenadine HCl [Erinn Allergy] 180 mg PO DAILY 03/18/21 09/11/21 History Zinc 50 mg PO DAILY 03/18/21 09/11/21 History Inulin/Chromium Picolinate [Fiber 1 tab PO DAILY 09/11/21 09/11/21 History Gummies Chew] Vitamin D Gummie 1 tab PO DAILY 09/11/21 09/11/21 History Allergies Allergy/AdvReac Type Severity Reaction Status Date / Time No Known Allergies Allergy Verified 09/11/21 11:26 Surgical - Exam Vital Signs Temp Pulse Resp BP Pulse Ox 97.2 F L 60 20 153/79 99 09/13/21 06:44 09/13/21 06:44 09/13/21 06:44 09/13/21 06:44 09/13/21 06:44
[2021-09-13] MEDS ORDERED: SODIUM CHLORIDE 0.9% 100 ML with ceFAZolin 2,000 MG IV ONE ×2 (07:57)
[2021-09-13] MEDS ORDERED: LIDOCAINE 1%-EPI 1:100,000 20 ML VIAL SQ ONE (08:03)
--- NOTE | 2021-09-13 08:33 | P.OP ---
Date of Procedure: 09/13/21 Description of Procedure: SURGEON: ROSALIA ARRIAGA MD SWATCH PASTER: None. PREOPERATIVE DIAGNOSES: 1. Upper midline back tumor 2. Hypertensive heart disease 3. Seasonal allergies POSTOPERATIVE DIAGNOSES: 1. Deep subcutaneous upper midline back tumor, 6 x 3 cm 2. Hypertensive heart disease 3. Seasonal allergies PROCEDURES PERFORMED: 1. Excision of deep subcutaneous upper midline back tumor, 6 x 3 cm 2. Complex closure upper back incision, 7-cm Anesthesia: GETA, local Estimated Blood Loss (ml): 5 Pathology: other (back mass) Condition: stable Disposition: same day COMPLICATIONS: None. Operative Findings: 1. Excision of deep subcutaneous upper back tumor 6 x 3 cm INDICATIONS: The patient is a 61-year-old male who presents with symptomatic upper back tumor. Benefits and risks of surgical intervention were described including bleeding, infection, seroma, pain and recurrence. Informed consent was obtained. DESCRIPTION OR PROCEDURE: In the preoperative area, the area of concern was marked with indelible marker. Patient was brought into the operating room. After general induction, he was positioned in right lateral decubitus position. The back was prepped and draped in a standard sterile fashion with ChloraPrep. Timeout protocol was confirmed with the surgical team regarding the patient's name, procedure to be performed including preoperative medications. DVT prophylaxis was confirmed. A field block was placed of the left lower back. An transverse incision using #15 blade was made along the marking into the dermis and subcutaneous tissue. Electro-Bovie cautery was used to enter deep into the subcutaneous tissue where a firm fibrous tumor was removed in tot al of 6 x 3 cm in a transverse elliptical fashion for complex closure. Upper and lower flaps with undermining was created to allow for closure. 0 Vicryl for the deep subcutaneous tissue followed by 3-0 Monocryl in a running subcuticular fashion was placed along the dermis. The skin was cleansed and Exofin tape with liquid was applied. The incision was covered with Optifoam dressing. At the end of the procedure, needle, sponge, and instrument count was verified correct by surgical product sales consultant. The patient tolerated the procedure well. Plan - Discharge Summary Discharge Rx Participant: Yes New Discharge Prescriptions: Continue Benazepril/Hydrochlorothiazide [Lotensin Hct 20-12.5 mg Tablet] 1 tab PO QAM amLODIPine [Norvasc] 10 mg PO QAM Fexofenadine HCl [Erinn Allergy] 180 mg PO DAILY Zinc 50 mg PO DAILY Inulin/Chromium Picolinate [Fiber Gummies Chew] 1 tab PO DAILY Vitamin D Gummie 1 tab PO DAILY Discharge Medication List Benazepril/Hydrochlorothiazide [Lotensin Hct 20-12.5 mg Tablet] 1 tab PO QAM 03/16/15 [History] amLODIPine [Norvasc] 10 mg PO QAM 02/03/21 [History] Fexofenadine HCl [Erinn Allergy] 180 mg PO DAILY 03/18/21 [History] Zinc 50 mg PO DAILY 03/18/21 [History] Inulin/Chromium Picolinate [Fiber Gummies Chew] 1 tab PO DAILY 09/11/21 [History] Vitamin D Gummie 1 tab PO DAILY 09/11/21 [History] Follow up Appointment(s)/Referral(s): Rosalia Arriaga MD [STAFF PHYSICIAN] - 09/17/21 Patient Instructions/Handouts: Excision of Skin Lesion (DC), *[facility] - Managing Your Pain After Surgery Without Opioids, Skin Adhesive Care (DC) Activity/Diet/Wound Care/Special Instructions: NO WIDE MOTIONS OF THE SHOULDERS/ARMS FOR 1 WEEK. NO BENDING AT THE HIPS WHILE SITTING NO EXTREME STRETCHING OF THE BACK See instructions on dressing. DO NOT REMOVE DRESSING. No lifting over 10 pounds in 2 weeks, Sep 27March shower. No bath tub soaks for two weeks, Sep 27 Diet as tolerated. Discharge Disposition: HOME SELF-CARE
[2021-09-13 08:43] VITALS: TEMP 97.6
[2021-09-13 09:10] VITALS: BP 122/75
[2021-09-13 09:23] VITALS: PULSE 71; RESP 18
== END 2021-09-13 09:37 | disposition home or self-care (01) ==
LOC: OR 06:18
PROVIDERS: ATTEND Surgery Plastic and Reconstructive Surgery
DX: L72.0 Epidermal cyst (principal); I10 Essential (primary) hypertension; M19.90 Unspecified osteoarthritis, unspecified site; Z85.53 Personal history of malignant neoplasm of renal pelvis; Z87.891 Personal history of nicotine dependence; Z79.899 Other long term (current) drug therapy
CPT/HCPCS: 88305; 11406; 13101; J2250; J1100; J2405; J0690; J3010; J0330; J2704; J1644; 88304

== ENCOUNTER 2021-09-30 09:19 | Day surgery (SDC) | payer BC ==
[2021-09-26 10:19] VITALS: BMI 32.0
--- NOTE | 2021-09-30 09:05 | P.GSHP ---
History of Present Illness H&P Date: 09/30/21 CHIEF COMPLAINT: Colon screen HISTORY OF PRESENT ILLNESS: The patient is a 61-year-old male who presents for colon screen. Lower endoscopy was offered for further evaluation and management. PAST MEDICAL HISTORY: Please see list. PAST SURGICAL HISTORY: Please see list. MEDICATIONS: Please see list. ALLERGIES: Please see list. SOCIAL HISTORY: No illicit drug use FAMILY HISTORY: No reports of Crohn disease or ulcerative colitis. REVIEW OF ORGAN SYSTEMS: CONSTITUTIONAL: No reports of fevers or chills. PHYSICAL EXAM: VITAL SIGNS: Stable GENERAL: Well-developed pleasant in no acute distress. HEENT: No scleral icterus. Extraocular movements grossly intact. Moist buccal mucosa. NECK: Supple without lymphadenopathy. CHEST: Unlabored respirations. Equal bilateral excursions. CARDIOVASCULAR: Regular rate and rhythm. Distal 2+ pulses. ABDOMEN: Soft, nontender, nondistended. MUSCULOSKELETAL: No clubbing, cyanosis, or edema. ASSESSMENT: 1. Colon screen. PLAN: 1. Recommend proceeding with a lower endoscopy Past Medical History Past Medical History: Cancer, Hypertension, Osteoarthritis (OA) Additional Past Medical History / Comment(s): hx Diverticulitis, vitiligo, hx renal cancer. History of Any Multi-Drug Resistant Organisms: None Reported Past Surgical History: Bowel Resection, Cholecystectomy Additional Past Surgical History / Comment(s): SINUS SURG, partial rt nephrectomy, left adrenal gland removed, colectomy 03/2021, CYDST REMOVED FROM BACK, COLONOSCOPY Past Anesthesia/Blood Transfusion Reactions: Motion Sickness, Postoperative Nausea & Vomiting (PONV) Additional Past Anesthesia/Blood Transfusion Reaction / Comment(s): no hx blood transfusion Smoking Status: Former smoker - Past Family History Mother Family Medical History: No Reported History Medications and Allergies Home Medications Medication Instructions Recorded Confirmed Type Benazepril/Hydrochlorothiazide 1 tab PO QAM 03/16/15 09/26/21 History [Lotensin Hct 20-12.5 mg Tablet] amLODIPine [Norvasc] 10 mg PO QAM 02/03/21 09/26/21 History Fexofenadine HCl [Erinn Allergy] 180 mg PO DAILY 03/18/21 09/26/21 History Zinc 50 mg PO DAILY 03/18/21 09/26/21 History Inulin/Chromium Picolinate [Fiber 1 tab PO DAILY 09/11/21 09/26/21 History Gummies Chew] Vitamin D Gummie 1 tab PO DAILY 09/11/21 09/26/21 History Allergies Allergy/AdvReac Type Severity Reaction Status Date / Time adhesive tape AdvReac RASH AND Verified 09/26/21 10:12 BLISTERS
[~2021-09-30 09:19] MED LIST changes: -DEXAMETHASONE SOD PHOSPHATE 4 MG/ML 1 ML VIAL IV ONE; -HEPARIN SODIUM,PORCINE/PF 5,000 UNIT/0.5 ML SYRINGE SQ PRN; -HYDROmorphone 0.5 MG/0.5 ML SYRINGE IVP PRN; -ONDANSETRON 4 MG/2 ML VIAL IVP ONE; -Pre Op ABX Message 1 EACH MISC MISCELLANE ONE
[2021-09-30 09:41] VITALS: TEMP 98.4
[2021-09-30] MEDS ORDERED: PROPOFOL 10 MG/ML 20 ML VIAL IV ONE (11:17)
[2021-09-30 11:38] VITALS: RESP 16
--- NOTE | 2021-09-30 11:38 | P.PCN ---
Date of Procedure: 09/30/21 Description of Procedure: PREOPERATIVE DIAGNOSIS: Personal history of colon polyps Personal history sigmoid diverticulitis POSTOPERATIVE DIAGNOSIS: Sigmoid colon adenoma OPERATION: Colonoscopy to the ileocecal valve and appendiceal orifice, cecum Colonoscopy with hot snare polypectomy SURGEON: Rosalia Arriaga MD. ANESTHESIA: MAC. INDICATIONS: The patient is an 61-year-old male with personal history of higher risk colon adenoma. He presents for resection. Last colonoscopy less than 5 years ago. Benefits and risks were described and informed consent was obtained. DESCRIPTION OF PROCEDURE: The patient had undergone Sutab prep. The patient had been brought into the operating room and laid in the left lateral decubitus position. After adequate intravenous sedation, the rectum was examined with 2% lidocaine jelly. The prostate was unremarkable. External hemorrhoids were encountered. The rectal tone was within normal limits. No lesions were palpated in the rectal vault. An Olympus colonoscope was advanced until the cecum, ileocecal valve and appendiceal orifice were clearly viewed. The prep was good. No sigmoid diverticulosis was encountered. Colonic polyps were found and removed. No evidence of focal colitis was found. Retroflexion of the scope demonstrated grade 2 internal hemorrhoids without active bleeding or inflammation. The colon was desufflated. The patient had tolerated the procedure well. Withdrawal time was over 6 minutes. FINDINGS: Aronchick preparation quality scale 2 (1-5) Internal hemorrhoids, grade 2 External hemorrhoids, grade 2. No arteriovenous malformations. No sigmoid diverticulosis Sigmoid colon resection and anastomosis viewed and 15 suture Removal of 2 polyps: - Snare polypectomy 20 cm from the anal verge, 6 mm tubulovillous adenoma polyp. - Cold forceps biopsy at proximal transverse colon, 4 mm polyp. No focal colitis. RECOMMENDATIONS: Repeat colonoscopy in 3 years, 2023 Plan - Discharge Summary Discharge Rx Participant: Yes New Discharge Prescriptions: Continue Benazepril/Hydrochlorothiazide [Lotensin Hct 20-12.5 mg Tablet] 1 tab PO QAM amLODIPine [Norvasc] 10 mg PO QAM Fexofenadine HCl [Erinn Allergy] 180 mg PO DAILY Zinc 50 mg PO DAILY Inulin/Chromium Picolinate [Fiber Gummies Chew] 1 tab PO DAILY Vitamin D Gummie 1 tab PO DAILY Discharge Medication List Benazepril/Hydrochlorothiazide [Lotensin Hct 20-12.5 mg Tablet] 1 tab PO QAM 03/16/15 [History] amLODIPine [Norvasc] 10 mg PO QAM 02/03/21 [History] Fexofenadine HCl [Erinn Allergy] 180 mg PO DAILY 03/18/21 [History] Zinc 50 mg PO DAILY 03/18/21 [History] Inulin/Chromium Picolinate [Fiber Gummies Chew] 1 tab PO DAILY 09/11/21 [History] Vitamin D Gummie 1 tab PO DAILY 09/11/21 [History] Follow up Appointment(s)/Referral(s): Rosalia Arriaga MD [STAFF PHYSICIAN] - As Needed Patient Instructions/Handouts: Colorectal Polyps (GEN), *[facility] - (Anesthesia) Endoscopy Discharge Instructions, Colonoscopy (DC) Activity/Diet/Wound Care/Special Instructions: Repeat colonoscopy 3 years, 2023 Discharge Disposition: HOME SELF-CARE
[2021-09-30 11:56] VITALS: BP 161/92; PULSE 59
== END 2021-09-30 12:14 | disposition home or self-care (01) ==
LOC: ORWHC2ENDO 09:19
PROVIDERS: ATTEND Surgery Plastic and Reconstructive Surgery
DX: D12.6 Benign neoplasm of colon, unspecified (principal); Z12.11 Encounter for screening for malignant neoplasm of colon; Z86.010 Personal history of colon polyps; I10 Essential (primary) hypertension; M19.90 Unspecified osteoarthritis, unspecified site; Z85.528 Personal history of other malignant neoplasm of kidney; Z87.891 Personal history of nicotine dependence; Z79.899 Other long term (current) drug therapy; K57.90 Diverticulosis of intestine, part unspecified, without perforation or abscess without bleeding
CPT/HCPCS: 88305; 45385; J2704

== ENCOUNTER → 2021-10-28 | Outpatient (CLI) | payer BC ==
[2021-10-28 11:52] LABS: African American GFR (CKD) >90 (>60 ml/min/1.73 sqM); Blood Urea Nitrogen 18 mg/dL (9-20); Non-African American GFR(CKD) 88 (>60 ml/min/1.73 sqM)
--- NOTE | 2021-10-28 14:17 | CT ---
EXAMINATION TYPE: CT ChestAbdPelvis w con DATE OF EXAM: 10/28/2021 COMPARISON: Most recent CT May 28, 2021 and older studies HISTORY: Renal Cell CA, observe for mets CT DLP: 1600.8 mGycm. Automated Exposure Control for Dose Reduction was Utilized. CONTRAST: CT scan of the thorax, abdomen and pelvis is performed with oral and with IV Contrast, patient inject ed with 100 mL of Isovue 300. FINDINGS: LUNGS: Mild linear scarring in the lingula is redemonstrated. No suspicious new Greater than 5 mm nodules or masses. There is no pleural effusion or pneumothorax seen. The tracheob ronchial tree is patent. MEDIASTINUM: There are no greater than 1 cm hilar or mediastinal lymph nodes. No cardiomegaly or pe ricardial effusion is seen. Coronary artery calcification again seen. LIVER/GB: Triangular shaped hyperdensity right hepatic lobe extends to surface becomes slightly less prominent on delayed consistent with transient hepatic attenuation difference is redemonstrated. PANCREAS: No significant abnormality is seen. SPLEEN: No significant abnormality is seen. ADRENALS: Stable 1.1 cm hyperdense nodule axial image [address] KIDNEYS: Focal defect posteriorly mid to lower pole level right kidney with some residual low dense t issue axial image 70 is unchanged from most recent CT. Symmetric cortical medullary uptake and excret ion without hydronephrosis seen bilaterally. There is 1.2 cm partially exophytic thin-walled cyst pos teriorly mid pole level left kidney series 7 image 28 current study. BOWEL: Oral contrast reaches level of left colon. No suspicious small or large bowel dilatation. Sutu res at level of sigmoid colon in the left pelvis are redemonstrated. Small-sized hiatal hernia redemo nstrated. Incidental normal contrast-filled appendix right lower quadrant again seen. GENITAL ORGANS: Mildly enlarged prostate redemonstrated. LYMPH NODES: No new greater than 1cm abdominal or pelvic lymph nodes are appreciated. OSSEOUS STRUCTURES: Slight scoliotic curvature in the thoracic spine. OTHER: No significant additional abnormality is seen. IMPRESSION: Posttreatment change posteriorly mid to lower pole of the right kidney redemonstrated. N o new or enlarging masses or lymph nodes to suggest active neoplastic recurrence.
== END | disposition home or self-care (01) ==
LOC: RADCTMAIN 10:18
PROVIDERS: ATTEND Internal Medicine Hematology & Oncology
DX: C64.1 Malignant neoplasm of right kidney, except renal pelvis (principal)
CPT/HCPCS: 82565; 84520; 71260; 74177; 36415; Q9967 ×2

== ENCOUNTER → 2022-04-28 | Outpatient (CLI) | payer BC, OTHER ==
[2022-04-28 09:51] LABS: African American GFR (CKD) >90 (>60 ml/min/1.73 sqM); Blood Urea Nitrogen 18 mg/dL (9-20); Non-African American GFR(CKD) 86 (>60 ml/min/1.73 sqM)
--- NOTE | 2022-04-28 12:12 | CT ---
EXAMINATION TYPE: CT ChestAbdPelvis w con DATE OF EXAM: 04/28/2022 COMPARISON: CT dated 10/28/2021 HISTORY: Renal cell carcinoma CT DLP: 1558.8 mGycm Automated exposure control for dose reduction was used. CONTRAST: CT scan of the chest, abdomen and pelvis is performed with Oral Contrast and with IV Contrast, patien t injected with 70 mL of Isovue 300. FINDINGS: LUNGS: Stable left upper lobe millimetric calcified granuloma. Unremarkable lungs otherwise. Patent t rachea and main bronchi. No pleural effusion. MEDIASTINUM: There are no greater than 1 cm hilar or mediastinal lymph nodes. No cardiomegaly. Arteri al atherosclerotic calcifications. No pericardial effusion is seen. OTHER: No aggressive bone lesion. LIVER/GB: Signs of hepatic steatosis. No definite hepatic focal lesion. Previous cholecystectomy. PANCREAS: No significant abnormality is seen. SPLEEN: No significant abnormality is seen. ADRENALS: Progressive enlargement of the right adrenal lesion measuring 2.3 cm compared to 1.9 cm in October [address] CT scan. It measured 13 mm in February 2021. This could represent a progressive primary or metastatic right adrenal lesion. Left adrenal lesion. KIDNEYS: Stable postsurgical changes along the posterior aspect of the lower pole of right kidney. Si mple cyst is seen at the posterior aspect of the left kidney. Small cyst is seen at the central porti on of the right kidney, appreciated previously. Unremarkable kidneys otherwise. BOWEL: Unremarkable colonic anastomosis in the pelvis. No bowel obstruction. Fecal loading of the co wilner. Segments of nonspecific colonic wall thickening, please correlate with colonoscopy results. REPRODUCTIVE ORGANS: Enlarged prostate, please correlate with PSA level. Unremarkable seminal vesicle s. Unremarkable urinary bladder. LYMPH NODES: No greater than 1 cm abdominal or pelvic lymph nodes are appreciated. OSSEOUS STRUCTURES: Severe bilateral L5-S1 facet osteoarthropathy. No aggressive bone lesion. OTHER: No sizable ascites. Fat-containing inguinal hernias. IMPRESSION: Stable postsurgical changes at the posterior aspect of the lower pole of right kidney. Progressive right adrenal lesion as described above, nonspecific and could be related to progressive primary or metastatic adrenal lesion. Recommend clinical correlation and further workup. Further PET scan or MIBG scan assessment can be considered. Otherwise no evidence of metastatic disease seen in the chest, abdomen or the pelvis. Other findings as described above.
== END | disposition home or self-care (01) ==
LOC: RADCTMAIN 08:54
PROVIDERS: ATTEND Internal Medicine Hematology & Oncology
DX: C64.9 Malignant neoplasm of unspecified kidney, except renal pelvis (principal); E27.8 Other specified disorders of adrenal gland
CPT/HCPCS: 82565; 84520; 71260; 74177; 36415; Q9967 ×2

== ENCOUNTER → 2022-09-29 | Outpatient (CLI) | payer OTHER ==
[2022-09-29 15:37] LABS: HCT 47.9 % (39.6-50.0); HGB 16.4 g/dL (13.0-17.0); MCH 30.5 pg (27.0-32.0); MCHC 34.2 g/dL (32.0-37.0); Mean Platelet Volume 11.3 fL (9.5-12.2); NRBC Per 100 WBC 0 /100 WBCS (0.0-0.0); Platelet Count 291 X 10*3/uL (140-440); RBC 5.38 X 10*6/uL (4.40-5.60); RDW 12.8 % (11.5-14.5); WBC 9.17 X 10*3/uL (4.50-10.00)
[2022-09-29 16:18] LABS: African American GFR (CKD) 92.4 (60.0-200.0); Anion Gap 9.7 mmol/L (10.00-18.00); Blood Urea Nitrogen 18.2 mg/dL (9.0-27.0); Carbon Dioxide 27.3 mmol/L (20.0-27.5); Non-African American GFR(CKD) 79.7 (60.0-200.0); Potassium 4.4 mmol/L (3.5-5.5)
== END | disposition home or self-care (01) ==
LOC: LABWHC1 09:22
PROVIDERS: ATTEND Urology
DX: C64.1 Malignant neoplasm of right kidney, except renal pelvis (principal); I10 Essential (primary) hypertension
CPT/HCPCS: 36415; 80051; 82565; 84520; 85027; 93005

== ENCOUNTER 2022-10-14 11:51 | Observation (INO) | payer OTHER ==
[2022-10-14] MEDS ORDERED: SODIUM CHLORIDE 0.9% 500 ML 500 ML IV STA (12:33)
[2022-10-14] MEDS ORDERED: HYDROCORTISONE SUCCINATE 100 MG/2 ML VIAL IV STA (12:46)
[2022-10-14 12:54] LABS: Basophils # (A) 0.1 k/uL (0-0.2); Basophils % (A) 1 %; Eosinophils # (A) 0.8 k/uL (0-0.7); Eosinophils % (A) 7 %; HCT 43.6 % (39.0-53.0); HGB 15.6 gm/dL (13.0-17.5); Lymphocytes # (A) 2.6 k/uL (1.0-4.8); Lymphocytes % (A) 25 %; MCH 31.1 pg (25.0-35.0); MCHC 35.7 g/dL (31.0-37.0); MCV 87.1 fL (80.0-100.0); Mean Platelet Volume 7.8; Monocytes # (A) 0.9 k/uL (0-1.0); Monocytes % (A) 8 %; Neutrophils # (A) 5.9 k/uL (1.3-7.7); Neutrophils % (A) 56 %; Platelet Count 347 k/uL (150-450); WBC 10.4 k/uL (3.8-10.6)
[2022-10-14 13:13] LABS: Albumin 3.9 g/dL (3.5-5.0); Calcium 9.5 mg/dL (8.4-10.2); Magnesium 1.8 mg/dL (1.6-2.3); Partial Thromboplastin Time 24.1 sec (22.0-30.0); Prothrombin Time 10.6 sec (9.0-12.0); Total Bilirubin 0.6 mg/dL (0.2-1.3); Total Protein 6.9 g/dL (6.3-8.2)
--- NOTE | 2022-10-14 13:27 | ED ---
General Adult HPI - General Chief complaint: Weakness Stated complaint: 1wk post op weakness Time Seen by Provider: 10/14/22 12:00 Source: patient, RN notes reviewed, old records reviewed Mode of arrival: ambulatory Limitations: no limitations - History of Present Illness Initial comments: This is a 62-year-old male who presents to the emergency department complaining of generalized weakness. Patient states he just had adrenal surgery and they removed His adrenal gland. Patient states he previously had other adrenal gland removed secondary to cancer. Patient states since his surgery on Thursday that he had an [place] he has been extremely weak and not wanting to eat having difficulty sleeping and very fatigued. Patient denies any pain. Patient denies any headache patient denies numbness or weakness. Patient denies any chest pain palpitations difficulty breathing or shortness of breath per patient denies any fever chills. Patient states he is on Cipro for prophylactic treatment of any possible infection. Patient states he does not have any abdominal pain is not nauseous but he is having diarrhea. - Related Data Home Medications Medication Instructions Recorded Confirmed Benazepril/Hydrochlorothiazide 1 tab PO DAILY 03/16/15 10/14/22 [Lotensin Hct 20-12.5 mg Tablet] Fexofenadine HCl [Erinn Allergy] 180 mg PO DAILY 03/18/21 10/14/22 Inulin/Chromium Picolinate [Fiber 1 tab PO DAILY 09/11/21 10/14/22 Gummies Chew] Cholecalciferol [Vitamin D3 (25 50 mcg PO DAILY 10/14/22 10/14/22 Mcg = 1000 Iu)] Allergies Allergy/AdvReac Type Severity Reaction Status Date / Time adhesive tape Allergy RASH AND Verified 10/14/22 14:17 BLISTERS ciprofloxacin [From Cipro] AdvReac Nausea & Verified 10/14/22 14:17 Vomiting Review of Systems ROS Statement: Those systems with pertinent positive or pertinent negative responses have been documented in the HPI. ROS Other: All systems not noted in ROS Statement are negative. Past Medical History Past Medical History: Cancer, Hypertension, Osteoarthritis (OA) Additional Past Medical History / Comment(s): hx Diverticulitis, vitiligo, hx renal cancer. History of Any Multi-Drug Resistant Organisms: None Reported Past Surgical History: Bowel Resection, Cholecystectomy Additional Past Surgical History / Comment(s): SINUS SURG, partial rt nephrectomy, left adrenal gland removed, colectomy 03/2021, CYDST REMOVED FROM BACK, COLONOSCOPY Past Anesthesia/Blood Transfusion Reactions: Motion Sickness, Postoperative Nausea & Vomiting (PONV) Additional Past Anesthesia/Blood Transfusion Reaction / Comment(s): no hx blood transfusion Past Psychological History: No Psychological Hx Reported Smoking Status: Former smoker Past Alcohol Use History: Occasional Past Drug Use History: Marijuana - Past Family History Mother Family Medical History: No Reported History General Exam - General Exam Comments Initial Comments: GENERAL: Patient is well-developed and well-nourished. Patient is nontoxic and well-hydrated and is in mild distress. Patient seems very tired and fatigued ENT: Neck is soft and supple. No significant lymphadenopathy is noted. Oropharynx is clear. Moist mucous membranes. Neck has full range of motion without eliciting any pain. EYES: The sclera were anicteric and conjunctiva were pink and moist. Extraocular movements were intact and pupils were equal round and reactive to light. Eyelids were unremarkable. PULMONARY: Unlabored respirations. Good breath sounds bilaterally. No audible rales rhonchi or wheezing was noted. CARDIOVASCULAR: There is a regular rate and rhythm without any murmurs gallops or rubs. ABDOMEN: Soft and nontender with normal bowel sounds. SKIN: Skin is clear with no lesions or rashes and otherwise unremarkable. NEUROLOGIC: Patient is alert and oriented x3. Cranial nerves II through XII are grossly intact. Motor and sensory are also intact. Normal speech, volume and content. Symmetrical smile. MUSCULOSKELETAL: Normal extremities with adequate strength and full range of motion. No lower extremity swelling or edema. No calf tenderness. LYMPHATICS: No significant lymphadenopathy is noted PSYCHIATRIC: Normal psychiatric evaluation. Limitations: no limitations Course Vital Signs 10/14/22 10/14/22 11:59 13:14 Temperature 98.4 F Pulse Rate 104 H 98 Respiratory 24 15 Rate Blood Pressure 90/56 105/66 O2 Sat by Pulse 97 95 Oximetry Medical Decision Making - Medical Decision Making EKG was interpreted by me. It shows a sinus tachycardia at 103 bpm VA interval 200 QRS is 88 QT interval 374 QTC is 433. Patient's EKG shows no ST segment elevation or depression. I interpreted the chest x-ray shows pleural effusion. Aside from that I saw no acute normalities. Patient received 100 mg of hydrocortisone and the patient was given a bolus of fluid and then started on D5 0.9 normal saline. I spoke with some physicians agreed to admit the patient admitted the patient wrote admitting orders. - Lab Data Result diagrams: 10/14/22 12:07 10/14/22 12:07 Lab Results 10/14/22 10/14/22 10/14/22 Range/Units 12:07 12:07 12:07 WBC 10.4 (3.8-10.6) k/uL RBC 5.00 (4.30-5.90) m/uL Hgb 15.6 (13.0-17.5) gm/dL Hct 43.6 (39.0-53.0) % MCV 87.1 (80.0-100.0) fL MCH 31.1 (25.0-35.0) pg MCHC 35.7 (31.0-37.0) g/dL RDW 12.0 (11.5-15.5) % Plt Count 347 (150-450) k/uL MPV 7.8 Neutrophils % 56 % Lymphocytes % 25 % Monocytes % 8 % Eosinophils % 7 % Basophils % 1 % Neutrophils # 5.9 (1.3-7.7) k/uL Lymphocytes # 2.6 (1.0-4.8) k/uL Monocytes # 0.9 (0-1.0) k/uL Eosinophils # 0.8 H (0-0.7) k/uL Basophils # 0.1 (0-0.2) k/uL PT 10.6 (9.0-12.0) sec INR 1.0 (<1.2) APTT 24.1 (22.0-30.0) sec Sodium 127 L (137-145) mmol/L Potassium 4.0 (3.5-5.1) mmol/L Chloride 95 L (98-107) mmol/L Carbon Dioxide 16 L (22-30) mmol/L Anion Gap 16 mmol/L BUN 24 H (9-20) mg/dL Creatinine 1.13 (0.66-1.25) mg/dL Est GFR (CKD-EPI)AfAm 80 (>60 ml/min/1.73 sqM) Est GFR (CKD-EPI)NonAf 69 (>60 ml/min/1.73 sqM) Glucose 96 (74-99) mg/dL Plasma Lactic Acid Cesar (0.7-2.0) mmol/L Calcium 9.5 (8.4-10.2) mg/dL Magnesium 1.8 (1.6-2.3) mg/dL Total Bilirubin 0.6 (0.2-1.3) mg/dL AST 58 (17-59) U/L ALT 69 H (4-49) U/L Alkaline Phosphatase 67 (38-126) U/L Troponin I (0.000-0.034) ng/mL Total Protein 6.9 (6.3-8.2) g/dL Albumin 3.9 (3.5-5.0) g/dL TSH 5.210 H (0.465-4.680) mIU/L Urine Color Urine Appearance (Clear) Urine pH (5.0-8.0) Ur Specific Jamies[place] (1.001-1.035) Urine Protein (Negative) Urine Glucose (UA) (Negative) Urine Ketones (Negative) Urine Blood (Negative) Urine Nitrite (Negative) Urine Bilirubin (Negative) Urine Urobilinogen (<2.0) mg/dL Ur Leukocyte Esterase (Negative) Urine RBC (0-5) /hpf Urine WBC (0-5) /hpf Ur Squamous Epith Cells (0-4) /hpf Hyaline Casts (0-2) /lpf Urine Mucus (None) /hpf 10/14/22 10/14/22 10/14/22 Range/Units 12:07 12:07 13:55 WBC (3.8-10.6) k/uL RBC (4.30-5.90) m/uL Hgb (13.0-17.5) gm/dL Hct (39.0-53.0) % MCV (80.0-100.0) fL MCH (25.0-35.0) pg MCHC (31.0-37.0) g/dL RDW (11.5-15.5) % Plt Count (150-450) k/uL MPV Neutrophils % % Lymphocytes % % Monocytes % % Eosinophils % % Basophils % % Neutrophils # (1.3-7.7) k/uL Lymphocytes # (1.0-4.8) k/uL Monocytes # (0-1.0) k/uL Eosinophils # (0-0.7) k/uL Basophils # (0-0.2) k/uL PT (9.0-12.0) sec INR (<1.2) APTT (22.0-30.0) sec Sodium (137-145) mmol/L Potassium (3.5-5.1) mmol/L Chloride (98-107) mmol/L Carbon Dioxide (22-30) mmol/L Anion Gap mmol/L BUN (9-20) mg/dL Creatinine (0.66-1.25) mg/dL Est GFR (CKD-EPI)AfAm (>60 ml/min/1.73 sqM) Est GFR (CKD-EPI)NonAf (>60 ml/min/1.73 sqM) Glucose (74-99) mg/dL Plasma Lactic Acid Cesar 1.5 (0.7-2.0) mmol/L Calcium (8.4-10.2) mg/dL Magnesium (1.6-2.3) mg/dL Total Bilirubin (0.2-1.3) mg/dL AST (17-59) U/L ALT (4-49) U/L Alkaline Phosphatase (38-126) U/L Troponin I 0.031 (0.000-0.034) ng/mL Total Protein (6.3-8.2) g/dL Albumin (3.5-5.0) g/dL TSH (0.465-4.680) mIU/L Urine Color Yellow Urine Appearance Clear (Clear) Urine pH 5.5 (5.0-8.0) Ur Specific Jamieson 1.022 (1.001-1.035) Urine Protein 1+ H (Negative) Urine Glucose (UA) Negative (Negative) Urine Ketones 4+ H (Negative) Urine Blood Small H (Negative) Urine Nitrite Negative (Negative) Urine Bilirubin 1+ H (Negative) Urine Urobilinogen 2.0 (<2.0) mg/dL Ur Leukocyte Esterase Negative (Negative) Urine RBC 1 (0-5) /hpf Urine WBC 6 H (0-5) /hpf Ur Squamous Epith Cells <1 (0-4) /hpf Hyaline Casts 31 H (0-2) /lpf Urine Mucus Moderate H (None) /hpf Disposition Clinical Impression: Weakness, Adrenal insufficiency, Pleural effusion, Hyponatremia, Diarrhea Disposition: ADMITTED IP TO THIS [facility] Referrals: Dylan Martinez MD [Primary Care Provider] - 1-2 days Time of Disposition: 14:36
--- NOTE | 2022-10-14 13:27 | XR ---
EXAMINATION TYPE: XR chest 2V DATE OF EXAM: 10/14/2022 1:21 PM COMPARISON: Chest radiographs from 02/08/2018, CT chest abdomen pelvis 04/28/2022 TECHNIQUE: XR chest 2V Frontal and lateral views of the chest. CLINICAL INDICATION:Male, 62 years old with history of Weakness; FINDINGS: Lungs/Pleura: No pneumothorax or focal consolidation. Small right pleural effusion with patchy airspa ce disease. Pulmonary vascularity: Unremarkable. Heart/mediastinum: Cardiomediastinal silhouette is unremarkable. Musculoskeletal: No acute osseous pathology. IMPRESSION: Small right pleural effusion with patchy airspace disease which may be related to infiltrate versus a telectasis.
[2022-10-14] MEDS: DEXTROSE 5%-0.9% NACL 1,000 ML IV SCH (13:58)
[2022-10-14 14:06] LABS: Appearance,Urine Clear (Clear); Bilirubin,Urine 1+ (Negative); Blood,Urine Small (Negative); Color,Urine Yellow; Glucose,Urine (UA) Negative (Negative); Hyaline Casts,Urine 31 /lpf (0-2); Ketones,Urine 4+ (Negative); Leukocyte Esterase,Urine Negative (Negative); Mucus,Urine Moderate /hpf; Nitrite,Urine Negative (Negative); PH, Urine 5.5 (5.0-8.0); Protein,Urine 1+ (Negative); RBC,Urine 1 /hpf (0-5); Specific Gravity,Urine 1.022 (1.001-1.035); Squamous Epithelial Cell,Urine <1 /hpf (0-4); WBC,Urine 6 /hpf (0-5)
[2022-10-14] MEDS ORDERED: ACETAMINOPHEN TAB 325 MG TAB PO PRN (16:40)
[2022-10-14] MEDS ORDERED: NALOXONE 0.4 MG/ML 1 ML VIAL IV PRN (16:48)
[2022-10-14] MEDS ORDERED: ONDANSETRON 4 MG/2 ML VIAL IVP PRN (16:48)
--- NOTE | 2022-10-14 17:02 | P.HPIM ---
History of Present Illness H&P Date: 10/14/22 Patient is a 62-year-old male with PMH of renal cell carcinoma with metastatic disease to the adrenal gland, status post partial resection of the right kidney, status post resection of the left adrenal gland presents to the ED for a constellation of symptoms. Patient reports undergoing partial resection of the right adrenal gland last Thursday by a surgeon in [place]. Patient reports progressive weakness and fatigue that has been ongoing since Thursday. He reports diarrhea over the past 2 days. His stool is described as yellow and watery. He denies any headache, lower extremity edema, nausea or vomiting, fever or chills, cough, chest pain, shortness of breath, palpitations, changes in urination. He reports a decreased appetite during this time. He denies any dizziness, numbness/weakness/tingling of the extremities. In the ED, he was noted to be hypotensive with BP of 90/56 and pulse of 104. CBC and coagulation panel was benign. CMP showed sodium of 127, chloride of 95, bicarb of 16, BUN of 24, ALT of 69. Troponin was 0.031, EKG showing sinus tachycardia with T-wave inversion and Q waves. TSH was 5.21. Urinalysis showed 4+ ketones, small blood. Chest x- ray showed small right pleural effusion with patchy airspace disease, infiltrate versus atelectasis. Patient is admitted for adrenal insuficiency. Pertinent positives and negatives as discussed in HPI, a complete review of systems was performed and all other systems are negative. General: non toxic, no distress, appears at stated age Derm: warm, dry Head: atraumatic, normocephalic, symmetric Eyes: EOMI, no lid lag, anicteric sclera Mouth: no lip lesion, mucus membranes moist Cardiovascular: S1S2 reg, systolic murmur, positive posterior tibial pulse bilateral, Lungs: Decreased breath sounds bilateral, no rhonchi, no rales , no accessory muscle use Abdominal: soft, nontender to palpation, no guarding, no appreciable organomegaly Ext: no gross muscle atrophy, no edema, no contractures Neuro: CN II-XI grossly intact, no focal neuro deficits Psych: Alert, oriented, appropriate affect #Adrenal insufficiency #Hypotension #Hyponatremia with hypochloremia and elevated BUN #Generalized weakness Patient is given Solu-Cortef 100 mg IV in the ED. Continue Solu-Cortef 50 mg IV every 6 hours. Continue D5 normal saline at 100 mL/h. Telemetry monitoring. Fall precautions. Monitor vital signs every 2 hours. PT and OT will be consulted to work with this patient. #Diarrhea Obtain COVID 19 test. Rule out C.difficile. #Elevated TSH Obtain FT4. #Transaminitis Hepatic steatosis seen on CT AP 04/2021. Continue to monitor. #Renal cell CA with metastatic disease Oncology will be consulted for further management of this patient. DVT prophylaxis: Heparin Discussed with: Patient, , ED physician Anticipated discharge: 2-[address]: Home A total of 35 minutes was spent on the care of this complex patient more than 50% of the time was spent in counseling and care coordination. Patient names his decision-maker if he cant make decisions for himself. Katey urvashi would like to be FULL CODE. Past Medical History Past Medical History: Cancer, Hypertension, Osteoarthritis (OA) Additional Past Medical History / Comment(s): hx Diverticulitis, vitiligo, hx renal cancer. History of Any Multi-Drug Resistant Organisms: None Reported Past Surgical History: Bowel Resection, Cholecystectomy Additional Past Surgical History / Comment(s): SINUS SURG, partial rt nephrectomy, left adrenal gland removed, colectomy 03/2021, CYDST REMOVED FROM BACK, COLONOSCOPY Past Anesthesia/Blood Transfusion Reactions: Motion Sickness, Postoperative Nausea & Vomiting (PONV) Additional Past Anesthesia/Blood Transfusion Reaction / Comment(s): no hx blood transfusion Past Psychological History: No Psychological Hx Reported Smoking Status: Former smoker Past Alcohol Use History: Occasional Past Drug Use History: Marijuana - Past Family History Mother Family Medical History: No Reported History Medications and Allergies Home Medications Medication Instructions Recorded Confirmed Type Benazepril/Hydrochlorothiazide 1 tab PO DAILY 03/16/15 10/14/22 History [Lotensin Hct 20-12.5 mg Tablet] Fexofenadine HCl [Erinn Allergy] 180 mg PO DAILY 03/18/21 10/14/22 History Inulin/Chromium Picolinate [Fiber 1 tab PO DAILY 09/11/21 10/14/22 History Gummies Chew] Cholecalciferol [Vitamin D3 (25 50 mcg PO DAILY 10/14/22 10/14/22 History Mcg = 1000 Iu)] Allergies Allergy/AdvReac Type Severity Reaction Status Date / Time adhesive tape Allergy RASH AND Verified 10/14/22 14:17 BLISTERS ciprofloxacin [From Cipro] AdvReac Nausea & Verified 10/14/22 14:17 Vomiting Physical Exam Vitals: Vital Signs Temp Pulse Resp BP Pulse Ox 10/14/22 14:30 96 18 102/56 96 10/14/22 14:00 98 20 116/65 95 10/14/22 13:30 93 17 105/66 97 10/14/22 13:14 98 15 105/66 95 10/14/22 11:59 98.4 F 104 H 24 90/56 97 Intake and Output 10/14/22 10/14/22 10/14/22 06:59 14:59 22:59 Other: Weight 99.79 kg Results CBC & Chem 7: 10/14/22 12:07 10/14/22 12:07 Labs: Abnormal Lab Results - Last 24 Hours (Table) 10/14/22 10/14/22 10/14/22 Range/Units 12:07 12:07 13:55 Eosinophils # 0.8 H (0-0.7) k/uL Sodium 127 L (137-145) mmol/L Chloride 95 L (98-107) mmol/L Carbon Dioxide 16 L (22-30) mmol/L BUN 24 H (9-20) mg/dL ALT 69 H (4-49) U/L TSH 5.210 H (0.465-4.680) mIU/L Urine Protein 1+ H (Negative) Urine Ketones 4+ H (Negative) Urine Blood Small H (Negative) Urine Bilirubin 1+ H (Negative) Urine WBC 6 H (0-5) /hpf Hyaline Casts 31 H (0-2) /lpf Urine Mucus Moderate H (None) /hpf
[2022-10-14] MEDS: HYDROCORTISONE SUCCINATE 100 MG/2 ML VIAL IV SCH (17:23)
[2022-10-15] MEDS: HYDROCORTISONE SUCCINATE 100 MG/2 ML VIAL IV SCH ×2 (01:15→05:37)
[2022-10-15] MEDS: DEXTROSE 5%-0.9% NACL 1,000 ML IV SCH (01:16)
[2022-10-15] MEDS: HEPARIN SODIUM,PORCINE/PF 5,000 UNIT/0.5 ML SYRINGE SQ SCH ×2 (01:17→10:30)
[2022-10-15 02:52] VITALS: PULSE 87
[2022-10-15 06:21] LABS: Glucose,Whole Blood 169 mg/dL (70-110)
[2022-10-15 07:36] VITALS: BP 129/78; RESP 18; TEMP 97.7
[2022-10-15] MEDS ORDERED: LORATADINE 10 MG TAB PO SCH (09:00)
[2022-10-15 09:20] LABS: Basophils # (A) 0.08 X 10*3/uL (0.00-0.10); Basophils % (A) 0.6 %; Eosinophils # (A) 0.05 X 10*3/uL (0.04-0.35); Eosinophils % (A) 0.4 %; HGB 13.6 g/dL (13.0-17.0); Immature Grans, Automated 0.9 %; Lymphocytes % (A) 9.5 %; MCH 30.6 pg (27.0-32.0); MCHC 34.9 g/dL (32.0-37.0); MCV 87.6 fL (80.0-97.0); Mean Platelet Volume 10.3 fL (9.5-12.2); Monocytes # (A) 1.06 X 10*3/uL (0.20-1.00); Monocytes % (A) 7.8 %; NRBC Per 100 WBC 0 /100 WBCS (0.0-0.0); Neutrophils # (A) 11.01 X 10*3/uL (1.80-7.70); Neutrophils % (A) 80.8 %; Platelet Count 351 X 10*3/uL (140-440); RBC 4.45 X 10*6/uL (4.40-5.60); WBC 13.62 X 10*3/uL (4.50-10.00)
[2022-10-15 09:35] LABS: Anion Gap 13.3 mmol/L (10.00-18.00); BUN/Creat Ratio 18.67 Ratio (12.00-20.00); Blood Urea Nitrogen 16.8 mg/dL (9.0-27.0); Calcium 9.2 mg/dL (8.7-10.3); Carbon Dioxide 19.7 mmol/L (20.0-27.5); Non-African American GFR(CKD) 90.6 (60.0-200.0); Potassium 4.4 mmol/L (3.5-5.5); T4, Free (Free Thyroxine) 1.31 ng/dL (0.800-1.800)
--- NOTE | 2022-10-15 10:17 | CA ---
Transthoracic Echo Report Name: Jethro Pandey Age: 62 Gender: M : 1960 Exam Date: 10/15/2022 08:48 Exam Location: [facility] Ht (in): 69 Wt (lb): 220 Ordering Physician: Jose A Sawyer MD Attending/Referring Phys: Rn Transition Janelle Morales RDCS Procedure CPT: Indications: Murmur Cardiac Hx: Technical Quality: Fair Contrast 1: Total Dose (mL): Contrast 2: Total Dose (mL): MEASUREMENTS (Male / Female) Normal Values 2D ECHO LV Diastolic Diameter PLAX 4.4 cm 4.2 - 5.9 / 3.9 - 5.3 cm LV Systolic Diameter PLAX 1.8 cm IVS Diastolic Thickness 1.5 cm 0.6 - 1.0 / 0.6 - 0.9 cm LVPW Diastolic Thickness 1.4 cm 0.6 - 1.0 / 0.6 - 0.9 cm LV Relative Wall Thickness 0.7 LVOT Diameter 1.4 cm LA Volume 48.0 cm??? 18 - 58 / 22 - 52 cm??? M-MODE Aortic Root Diameter MM 3.4 cm LA Systolic Diameter MM 3.6 cm LA Ao Ratio MM 1.0 AV Cusp Separation MM 2.2 cm DOPPLER AV Peak Velocity 224.1 cm/s AV Peak Gradient 20.1 mmHg AV Mean Velocity 172.3 cm/s AV Mean Gradient 12.9 mmHg AV Velocity Time Integral 40.7 cm LVOT Peak Velocity 209.5 cm/s LVOT Peak Gradient 17.6 mmHg LVOT Velocity Time Integral 41.0 cm LVOT Stroke Volume 63.8 cm??? LVOT Stroke Volume Index 29.7 ml/m??? LVOT Cardiac Index 2740.2 cm???/min???m??? AV Area Cont Eq vti 1.6 cm??? AV Area Cont Eq pk 1.5 cm??? MV Area PHT 2.9 cm??? Mitral E Point Velocity 68.8 cm/s Mitral A Point Velocity 103.9 cm/s Mitral E to A Ratio 0.7 MV Deceleration Time 257.2 ms MV E' Velocity 7.4 cm/s Mitral E to MV E' Ratio 9.3 TR Peak Velocity 180.8 cm/s TR Peak Gradient 13.1 mmHg Right Ventricular Systolic Press 18.1 mmHg FINDINGS Left Ventricle Moderately increased left ventricular wall thickness. Normal left ventricular systolic function with no obvious regional wall motion abnormalities. Left ventricular ejection fraction is estimated at 55-60 %. Right Ventricle Normal right ventricular size and function. Right Atrium Normal right atrial size. Left Atrium Normal left atrial size. Mitral Valve Structurally normal mitral valve. No mitral stenosis, regurgitation or prolapse. Aortic Valve Trileaflet aortic valve. Diffuse thickening of the aortic valve cusps with reduced excursion. Mild aortic stenosis with a peak gradient of 20 mmHg and a mean gradient of 13 mmHg. LVOT obstruction noted as well. LVOT peak velocity 210 cm/s. No aortic regurgitation. Tricuspid Valve Structurally normal tricuspid valve. Mild tricuspid regurgitation. Pulmonic Valve Trace pulmonic regurgitation. Pericardium No pericardial effusion. Aorta Normal size aortic root and proximal ascending aorta. CONCLUSIONS Left ventricular ejection fraction 55-60% Moderate increased left ventricular wall thickness 1.4-1.5 cm Mild aortic stenosis with mean gradient 13 mmHg Mild LVOT obstruction noted with peak velocity 2.1 m/s Mild tricuspid regurgitation Previewed by: Dr. Gt Schwartz DO (Electronically Signed) Final Date: 15 October 2022 10:16
[2022-10-15] MEDS ORDERED: PANTOPRAZOLE 40 MG TABLET PO SCH (11:45)
--- NOTE | 2022-10-15 11:58 | P.DS ---
Providers Date of admission: 10/14/22 14:36 Expected date of discharge: 10/15/22 Attending physician: Jose A Sawyer MD Consults: 10/14/22 16:47 Consult Physician Routine Consulting Provider: Ninoska Hess Consult Reason/Comments: Renal cell CA Do you want consulting provider notified?: Yes Primary care physician: [facility] Course: Patient is a 62-year-old male with PMH of renal cell carcinoma with metastatic disease to the adrenal gland, status post partial resection of the right kidney, status post resection of the left adrenal gland presents to the ED for a constellation of symptoms. Patient reports undergoing partial resection of the right adrenal gland last Thursday by a surgeon in [place]. Patient reports progressive weakness and fatigue that has been ongoing since Thursday. He reports diarrhea over the past 2 days. His stool is described as yellow and watery. He denies any headache, lower extremity edema, nausea or vomiting, fever or chills, cough, chest pain, shortness of breath, palpitations, changes in urination. He reports a decreased appetite during this time. He denies any dizziness, numbness/weakness/tingling of the extremities. In the ED, he was noted to be hypotensive with BP of 90/56 and pulse of 104. CBC and coagulation panel was benign. CMP showed sodium of 127, chloride of 95, bicarb of 16, BUN of 24, ALT of 69. Troponin was 0.031, EKG showing sinus tachycardia with T-wave inversion and Q waves. TSH was 5.21. Urinalysis showed 4+ ketones, small blood. Chest x- ray showed small right pleural effusion with patchy airspace disease, infiltrate versus atelectasis. Patient is admitted for adrenal insuficiency. Patient was started on Solu-Cortef IV which improved his blood pressure. His generalized weakness improved as well. ACTH was 49 and Cortisol of 53. His hyponatremia improved to 129 at the time of discharge. Hypochloremia and elevated BUN resolved with IV hydration. He was transitioned to hydrocortisone by mouth. His diarrhea resolved. COVID 19 was negative. He did have an elevated TSH of 5.21 but FT4 was within normal limits. Echocardiogram was done which showed EF of 55-60%, moderate LVH, mild tricuspid regurgitation, mild aortic stenosis with mild LVOT. Patient was seen and examined. No acute events overnight. He is seen ambulating the hallways. He reports significant improvement in his weakness. He has no diarrhea today. No lightheadedness. Patient states that he would like to go home to enjoy Thanksgiving with his family. Pertinent studies include chest x-ray and echocardiogram. General: non toxic, no distress, appears at stated age Derm: warm, dry Head: atraumatic, normocephalic, symmetric Eyes: EOMI, no lid lag, anicteric sclera Mouth: no lip lesion, mucus membranes moist Cardiovascular: S1S2 reg, systolic murmur Lungs: Decreased breath sounds bilateral, no rhonchi, no rales , no accessory muscle use Ext: no gross muscle atrophy, no edema, no contractures Neuro: no focal neuro deficits Psych: Alert, oriented, appropriate affect Patient be discharged home with the following instructions: Diet: Regular Follow up with PCP within 1-2 days of discharge. Follow up with Endocrinology Dr. Erickson within 1 week of discharge. Follow up with Oncology Dr. Hess within 1 week of discharge. Follow up with your Surgeon at [place] with the post operative appointment given to you. Take hydrocortisone 5 mg by mouth twice a day. Discontinue blood pressure medication and monitor. Take Protonix 40 mg by mouth daily as GI prophylaxis. Discharge Diagnosis: #Adrenal insufficiency #Hypotension #Hyponatremia with hypochloremia and elevated BUN #Generalized weakness #Diarrhea #Elevated TSH #Transaminitis #Renal cell CA with metastatic disease This complex discharge took 35 minutes to complete. Patient Condition at Discharge: Stable Plan - Discharge Summary Discharge Rx Participant: No New Discharge Prescriptions: New Hydrocortisone 5 mg PO AC-BID #60 tablet Pantoprazole [Protonix] 40 mg PO AC-BRKFST #30 tab Continue Fexofenadine HCl [Erinn Allergy] 180 mg PO DAILY Inulin/Chromium Picolinate [Fiber Gummies Chew] 1 tab PO DAILY Cholecalciferol [Vitamin D3 (25 Mcg = 1000 Iu)] 50 mcg PO DAILY Discontinued Benazepril/Hydrochlorothiazide [Lotensin Hct 20-12.5 mg Tablet] 1 tab PO DAILY Discharge Medication List Fexofenadine HCl [Erinn Allergy] 180 mg PO DAILY 03/18/21 [History] Inulin/Chromium Picolinate [Fiber Gummies Chew] 1 tab PO DAILY 10/20/21 [History] Cholecalciferol [Vitamin D3 (25 Mcg = 1000 Iu)] 50 mcg PO DAILY 10/14/22 [History] Hydrocortisone 5 mg PO AC-BID #60 tablet 10/15/22 [Rx] Pantoprazole [Protonix] 40 mg PO AC-BRKFST #30 tab 10/15/22 [Rx] Follow up Appointment(s)/Referral(s): Dylan Martinez MD [Primary Care Provider] - 1-2 days Nia Erickson MD [STAFF PHYSICIAN] - 1 Week Ninoska Hess MD [STAFF PHYSICIAN] - 1 Week Activity/Diet/Wound Care/Special Instructions: Diet: Regular Follow up with PCP within 1-2 days of discharge. Follow up with Endocrinology Dr. Erickson within 1 week of discharge. Follow up with Oncology Dr. Hess within 1 week of discharge. Follow up with your Surgeon at [place] with the post operative appointment given to you. Take all medications as advised. Discontinue blood pressure medication and monitor. Take Protonix 40 mg by mouth daily as GI prophylaxis. Come back to the ED for worsening weakness, lightheadedness, chest pain or shortness of breath. Discharge Disposition: HOME SELF-CARE
--- NOTE | 2022-10-15 17:37 | P.CONS ---
History of Present Illness - Reason for Consult Consult date: 10/15/22 renal cell carcinoma Requesting physician: Jose A Sawyer - Chief Complaint weakness - History of Present Illness Mr. Pandey is a pleasant 62-year-old man who has been seen in the past by Dr. Hess With a past medical history of renal cell carcinoma. He was diagnosed with right kidney cancer in 2017, incidental finding during CT scan for diverticulitis. 03/17/18 robotic-assisted right partial nephrectomy, pathology revealed 3.5 cm mass consistent with clear cell carcinoma, negative margins. April 2020 he was found to have an enlarging left adrenal mass to 3.4 cm and an 8 mm nodular area right adrenal gland. 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 He continued to have follow-up scans that were stable. 04/28/22 CT CAP showed an enlarging right adrenal gland. Dr. Hess referred him at that time. Patient had a right partial adrenalectomy last Thursday. He does not know the pathology yet, We'll be following up with the Surgeon. Patient was not placed on any steroids postop-though I see he was on hydrocorotisone as a home med. He reports he has not seen an [employer]. 2 days after surgery he noticed he was more tired, felt weaker, noted a heightened sense of smell, diarrhea that was yellow in nature but, this has improved. He denied any falls, dizziness, complained of some insomnia. Pt came to eR for weakness. Since admit he has received some fluids on some steroids, he is reporting feeling much better. Review of Systems 10 point ROS is neg except as stated in HPI Past Medical History Past Medical History: Cancer, Hypertension, Osteoarthritis (OA) Additional Past Medical History / Comment(s): hx Diverticulitis, vitiligo, hx renal cancer. History of Any Multi-Drug Resistant Organisms: None Reported Past Surgical History: Bowel Resection, Cholecystectomy Additional Past Surgical History / Comment(s): SINUS SURG, partial rt nephrectomy, left adrenal gland removed, colectomy 03/2021, CYDST REMOVED FROM BA CK, COLONOSCOPY Past Anesthesia/Blood Transfusion Reactions: Motion Sickness, Postoperative Nausea & Vomiting (PONV) Additional Past Anesthesia/Blood Transfusion Reaction / Comm: no hx blood transfusion Past Psychological History: No Psychological Hx Reported Smoking Status: Former smoker Past Alcohol Use History: Occasional Additional Past Alcohol Use History / Comment(s): QUIT SMOKING 2012-smoked for 15 yrs Past Drug Use History: Marijuana - Past Family History Mother Family Medical History: No Reported History Medications and Allergies Home Medications Medication Instructions Recorded Confirmed Type Fexofenadine HCl [Erinn Allergy] 180 mg PO DAILY 03/18/21 10/14/22 History Inulin/Chromium Picolinate [Fiber 1 tab PO DAILY 09/11/21 10/14/22 History Gummies Chew] Cholecalciferol [Vitamin D3 (25 50 mcg PO DAILY 10/14/22 10/14/22 History Mcg = 1000 Iu)] Hydrocortisone 5 mg PO AC-BID #60 tablet 10/15/22 Rx Pantoprazole [Protonix] 40 mg PO AC-BRKFST #30 tab 10/15/22 Rx Allergies Allergy/AdvReac Type Severity Reaction Status Date / Time adhesive tape Allergy RASH AND Verified 10/14/22 14:17 BLISTERS ciprofloxacin [From Cipro] AdvReac Nausea & Verified 10/14/22 14:17 Vomiting Physical Exam Vitals: Vital Signs Temp Pulse Pulse Resp BP BP Pulse Ox 10/15/22 07:35 97.7 F 87 18 129/78 97 10/15/22 02:00 98.2 F 87 16 126/74 96 10/14/22 20:56 86 120/68 10/14/22 20:45 97.7 F 90 17 120/76 95 10/14/22 20:02 86 16 96 10/14/22 18:55 89 16 127/60 100 10/14/22 18:00 89 23 121/73 96 10/14/22 17:30 89 19 121/73 96 10/14/22 17:00 94 22 111/63 98 10/14/22 16:30 86 22 112/68 97 10/14/22 16:00 86 14 97/61 94 L 10/14/22 15:30 89 18 98/59 95 10/14/22 15:00 94 17 102/56 95 10/14/22 14:30 96 18 102/56 96 10/14/22 14:00 98 20 116/65 95 10/14/22 13:30 93 17 105/66 97 10/14/22 13:14 98 15 105/66 95 10/14/22 11:59 98.4 F 104 H 24 90/56 97 Intake and Output 10/14/22 10/15/22 10/15/22 22:59 06:59 14:59 Intake Total 1440 Output Total 800 Balance 640 Intake: Intake, IV Titration 1200 Amount Dextrose 5%-0.9% NaCl 1, 1200 000 ml @ 100 mls/hr IV . Q10H SPENCER Rx#:[id number] Oral 240 Output: Urine 800 Other: Weight 99.79 kg - Constitutional General appearance: average body habitus, cooperative, no acute distress - EENT Eyes: anicteric sclerae, EOMI ENT: hearing grossly normal, normal oropharynx - Neck Neck: no lymphadenopathy - Respiratory Respiratory: bilateral: CTA - Cardiovascular Rhythm: regular Heart sounds: normal: S1, S2 Abnormal Heart Sounds: no systolic murmur, no diastolic murmur, no rub, no S3 Gallop, no S4 Gallop, no click, no other leg Peripheral Edema: bilateral: None - Gastrointestinal General gastrointestinal: no absent bowel sounds, no decreased bowel sounds, no distended, no hepatomegaly, no hyperactive bowel sounds, normal bowel sounds, no organomegaly, no rigid, no scaphoid, soft, no splenomegaly, no tenderness, no umbilical hernia, no ventral hernia - Integumentary Integumentary: normal - Neurologic Neurologic: CNII-XII intact - Musculoskeletal Musculoskeletal: strength equal bilaterally - Psychiatric Psychiatric: A&O x's 3, appropriate affect, intact judgment & insight Results CBC & Chem 7: 10/15/22 05:36 10/15/22 05:36 Labs: Abnormal Lab Results - Last 24 Hours (Table) 10/14/22 10/14/22 10/14/22 Range/Units 12:07 12:07 13:55 Eosinophils # 0.8 H (0-0.7) k/uL Sodium 127 L (137-145) mmol/L Chloride 95 L (98-107) mmol/L Carbon Dioxide 16 L (22-30) mmol/L BUN 24 H (9-20) mg/dL POC Glucose (mg/dL) (70-110) mg/dL ALT 69 H (4-49) U/L TSH 5.210 H (0.465-4.680) mIU/L ACTH (0.00-45.99) pg/mL Urine Protein 1+ H (Negative) Urine Ketones 4+ H (Negative) Urine Blood Small H (Negative) Urine Bilirubin 1+ H (Negative) Urine WBC 6 H (0-5) /hpf Hyaline Casts 31 H (0-2) /lpf Urine Mucus Moderate H (None) /hpf 10/14/22 10/15/22 Range/Units 17:10 06:19 Eosinophils # (0-0.7) k/uL Sodium (137-145) mmol/L Chloride (98-107) mmol/L Carbon Dioxide (22-30) mmol/L BUN (9-20) mg/dL POC Glucose (mg/dL) 169 H (70-110) mg/dL ALT (4-49) U/L TSH (0.465-4.680) mIU/L ACTH 49.00 H (0.00-45.99) pg/mL Urine Protein (Negative) Urine Ketones (Negative) Urine Blood (Negative) Urine Bilirubin (Negative) Urine WBC (0-5) /hpf Hyaline Casts (0-2) /lpf Urine Mucus (None) /hpf Comments: ECHO report reviewed Chest x-ray: report reviewed Assessment and Plan (1) Weakness Status: Acute Priority: High Code(s): R53.1 - WEAKNESS SNOMED Code(s): 26954817 (2) Adrenal tumor Status: Acute Priority: High Code(s): D49.7 - NEOPLM OF UNSP BEHAV OF ENDO GLANDS AND OTH PRT NERVOUS SYS SNOMED Code(s): 245083024 (3) Renal cell cancer Status: Chronic Priority: High Code(s): C64.9 - MALIGNANT NEOPLASM OF UNSP KIDNEY, EXCEPT RENAL PELVIS SNOMED Code(s): 055700501 Plan: Adrenal tumor removed last Thu, pending path. Pt will f/u for that. Symptoms stated about 2 days after surgery. Possibly adrenal insufficiency. Patient is reporting feeling much better after steroids and hydration. Recommendation is for Endocrinology assessment. Pt may require Steroids for adrenal insufficiency for now. Close f/u as the remaining adrenal gland adapts. attests: I have seen and examined pt, performed H&P, developed impression and plan of care. Discussed with dictator. Agree with documentation, dictated as a scribe. Time with Patient: Greater than 30
== END 2022-10-15 13:43 | disposition home or self-care (01) ==
LOC: EC 11:51 → INTOOBSV 14:36 → 4SSUR 14:36 → UNDODISIN 10-15 13:43
PROVIDERS: ADMIT Family Medicine; ATTEND Family Medicine
DX: E27.40 Unspecified adrenocortical insufficiency (principal); E87.1 Hypo-osmolality and hyponatremia; I95.9 Hypotension, unspecified; R94.6 Abnormal results of thyroid function studies; E87.8 Other disorders of electrolyte and fluid balance, not elsewhere classified; R19.7 Diarrhea, unspecified; I10 Essential (primary) hypertension; R00.0 Tachycardia, unspecified; J90 Pleural effusion, not elsewhere classified; K76.0 Fatty (change of) liver, not elsewhere classified; R74.01 Elevation of levels of liver transaminase levels; M19.90 Unspecified osteoarthritis, unspecified site; I08.2 Rheumatic disorders of both aortic and tricuspid valves; L80 Vitiligo; Z20.822 Contact with and (suspected) exposure to COVID-19; Z79.899 Other long term (current) drug therapy; Z88.1 Allergy status to other antibiotic agents; Z91.048 Other nonmedicinal substance allergy status; Z85.528 Personal history of other malignant neoplasm of kidney; Z85.858 Personal history of malignant neoplasm of other endocrine glands; Z90.49 Acquired absence of other specified parts of digestive tract; Z87.19 Personal history of other diseases of the digestive system; Z90.5 Acquired absence of kidney; Z87.891 Personal history of nicotine dependence
CPT/HCPCS: 96376 ×2; 96372; 96374; 99285; 36415; 93005; 93306; 97161; 84439; 80053; 80048; 82533; 83605; 83735; 84443; 84484; 85025 ×2; 85610; 85730; 81001; 87040; 82024; 87635; 71046; G0378 ×2; J1720 ×2; J1644

== ENCOUNTER → 2022-10-30 | Outpatient (CLI) | payer OTHER ==
[2022-10-30 15:36] LABS: African American GFR (CKD) 71.3 (60.0-200.0); Albumin 4.3 g/dL (3.8-4.9); Albumin/Globulin Ratio 1.32 (1.60-3.17); Anion Gap 11.5 mmol/L (10.00-18.00); BUN/Creat Ratio 12.26 Ratio (12.00-20.00); Blood Urea Nitrogen 15.2 mg/dL (9.0-27.0); Calcium 10.4 mg/dL (8.7-10.3); Carbon Dioxide 25.5 mmol/L (20.0-27.5); Globulin 3.3 g/dL (1.6-3.3); Non-African American GFR(CKD) 61.5 (60.0-200.0); Potassium 4.7 mmol/L (3.5-5.5); Total Bilirubin 0.4 mg/dL (0.30-1.20); Total Protein 7.6 g/dL (6.2-8.2)
== END | disposition home or self-care (01) ==
LOC: LABWHC1 07:22
PROVIDERS: ATTEND Internal Medicine Endocrinology, Diabetes & Metabolism
DX: E27.40 Unspecified adrenocortical insufficiency (principal)
CPT/HCPCS: 36415; 80053; 82024; 82533

== ENCOUNTER → 2023-05-06 | Outpatient (CLI) | payer OTHER | END | disposition home or self-care (01) | LOC: LABWHC1 06:57 | PROVIDERS: ATTEND Internal Medicine Endocrinology, Diabetes & Metabolism | DX: E27.40 Unspecified adrenocortical insufficiency (principal) | CPT/HCPCS: 36415; 82024; 82533 ==

== ENCOUNTER → 2023-10-28 | Outpatient (CLI) | payer OTHER | END | disposition home or self-care (01) | LOC: LABWHC1 07:09 | PROVIDERS: ATTEND Internal Medicine Endocrinology, Diabetes & Metabolism | DX: E03.8 Other specified hypothyroidism (principal); E89.6 Postprocedural adrenocortical (-medullary) hypofunction | CPT/HCPCS: 36415; 82024; 82533; 84443 ==

== ENCOUNTER → 2024-04-26 | Outpatient (CLI) | payer BC ==
[2024-04-26 10:38] LABS: ALT 34 U/L (10-49); AST 28 U/L (14-35); Albumin 4.6 g/dL (3.8-4.9); Albumin/Globulin Ratio 1.64 Ratio (1.60-3.17); Alkaline Phosphatase 47 U/L (41-126); BUN/Creat Ratio 20.27 Ratio (12.00-20.00); Blood Urea Nitrogen 22.3 mg/dL (9.0-27.0); Calcium 9.6 mg/dL (8.7-10.3); Carbon Dioxide 24.2 mmol/L (21.6-31.8); Chloride 104 mmol/L (96-109); Globulin 2.8 g/dL (1.6-3.3); Glucose 90 mg/dL (70-110); Potassium 4.5 mmol/L (3.5-5.5); Sodium 140 mmol/L (135-145); Total Bilirubin 0.7 mg/dL (0.3-1.2); Total Protein 7.4 g/dL (6.2-8.2)
== END | disposition home or self-care (01) ==
LOC: LABWHC1 07:01
PROVIDERS: ATTEND Internal Medicine Endocrinology, Diabetes & Metabolism
DX: E89.6 Postprocedural adrenocortical (-medullary) hypofunction (principal)
CPT/HCPCS: 36415; 80053; 82024; 82533

== ENCOUNTER → 2024-10-25 | Outpatient (CLI) | payer MEDICARE ==
[2024-10-25 15:18] LABS: ALT 32 U/L (10-49); AST 25 U/L (14-35); Albumin 4.4 g/dL (3.8-4.9); Albumin/Globulin Ratio 1.47 Ratio (1.60-3.17); Alkaline Phosphatase 54 U/L (41-126); BUN/Creat Ratio 13.82 Ratio (12.00-20.00); Blood Urea Nitrogen 15.2 mg/dL (9.0-27.0); Calcium 9.9 mg/dL (8.7-10.3); Carbon Dioxide 26.1 mmol/L (21.6-31.8); Chloride 103 mmol/L (96-109); Glucose 85 mg/dL (70-110); Potassium 4.6 mmol/L (3.5-5.5); Sodium 139 mmol/L (135-145); T4, Free (Free Thyroxine) 1.17 ng/dL (0.80-1.80); Total Bilirubin 0.7 mg/dL (0.3-1.2); Total Protein 7.4 g/dL (6.2-8.2)
== END | disposition home or self-care (01) ==
LOC: LABWHC1 07:30
PROVIDERS: ATTEND Internal Medicine Endocrinology, Diabetes & Metabolism
DX: E89.6 Postprocedural adrenocortical (-medullary) hypofunction (principal)
CPT/HCPCS: 36415; 80053; 82533; 84146; 84439; 84443

== ENCOUNTER → 2025-05-03 | Outpatient (CLI) | payer MEDICARE ==
[2025-05-03 10:59] LABS: ALT 30 U/L (10-49); AST 26 U/L (14-35); Albumin 4.1 g/dL (3.8-4.9); Albumin/Globulin Ratio 1.58 Ratio (1.60-3.17); Alkaline Phosphatase 47 U/L (41-126); BUN/Creat Ratio 16.64 Ratio (12.00-20.00); Blood Urea Nitrogen 18.3 mg/dL (9.0-27.0); Calcium 9.1 mg/dL (8.7-10.3); Carbon Dioxide 24.4 mmol/L (21.6-31.8); Chloride 106 mmol/L (96-109); Globulin 2.6 g/dL (1.6-3.3); Glucose 98 mg/dL (70-110); Potassium 4.4 mmol/L (3.5-5.5); Sodium 140 mmol/L (135-145); Total Bilirubin 0.4 mg/dL (0.3-1.2); Total Protein 6.7 g/dL (6.2-8.2)
== END | disposition home or self-care (01) ==
LOC: LABWHC1 07:08
PROVIDERS: ATTEND Internal Medicine Endocrinology, Diabetes & Metabolism
DX: E89.6 Postprocedural adrenocortical (-medullary) hypofunction (principal)
CPT/HCPCS: 36415; 80053; 82024; 82533